=== PATIENT | male | born 1965 | race Caucasian/White ===

== ENCOUNTER 2021-06-10 02:07 | Emergency (ER) | payer OTHER, SELFPAY ==
--- NOTE | ~2021-06-10 | XR_ITS ---
EXAMINATION: XR FOOT, RIGHT CLINICAL INFORMATION: Fall and injury COMPARISON: None TECHNIQUE: AP, lateral, and oblique views of the right foot. FINDINGS: Osseous alignment throughout the foot is anatomic. No acute fracture is seen. Posterior and plantar calcaneal spurs are present. Mild degenerative changes noted in the tarsotarsal articulations. No significant focal soft tissue abnormality. XR/XR foot RT 2V IMPRESSION: No acute findings identified.
--- NOTE | 2021-06-10 02:14 | ED_ITS ---
HPI - Extremity Injury (Lower) General Chief Complaint: Extremity Injury, Lower Stated Complaint: right ankle injury Time Seen by Provider: 06/10/21 02:14 Source: patient Mode of arrival: EMS Limitations: no limitations History of Present Illness HPI Narrative: tripped and fell at work injuring his right foot 2 hours ago complaint: foot injury Onset (ago): hour(s) Type of Injury: unknown Place: work Severity: mild Relieving factors: nothing Exacerbating factors: weight bearing Context: fall Related Data Previous Rx's Medication Instructions Recorded naproxen 500 mg tablet (Naprosyn) 500 mg PO BID #20 tab 06/10/21 Allergies Allergy/AdvReac Type Severity Reaction Status Date / Time No Known Allergies Allergy Verified 06/10/21 02:18 Review of Systems Constitutional: Constitutional: Reports no additional constitutional complaints Eyes: Eyes: Reports no additional eye complaints ENT: Denies dizziness Cardiovascular: Cardiovascular: Reports no additional cardiovascular complaints Respiratory: Respiratory: Reports as per HPI Gastrointestinal: Gastrointestinal: Reports no additional gastrointestinal complaints Musculoskeletal: Musculoskeletal: Reports no additional musculoskeletal complaints Integumentary/Breasts: Skin/Breast: Denies rash Neurologic: Reports system reviewed and no additional complaints, except as documented, Denies dizziness and Denies Sensory deficit (Neuro) Psychiatric: Psychiatric: Denies anxiety [facility] Past Medical History Medical History (Updated 06/10/21 @ 03:38 by Anam Nagy MD) Hard of hearing Social History Social History Advance Directives: No Physical Exam Vital Signs: Vital Signs: Last Vital Signs Temp 98.0 F 06/10/21 02:22 Pulse 64 06/10/21 02:22 Resp 18 06/10/21 02:22 BP 140/75 H 06/10/21 02:22 Pulse Ox 96 06/10/21 02:22 Body Mass Index 36.3 Const: General: healthy appearing Nutritional Appearance: average body habitus Orientation/consciousness: oriented to person and patient oriented x3 Limitations: no limitations HENMT: Head: Yes normal to inspection Ears: external ears normal General nose exam: Normal external nose present Mouth: Normal oral and palatal mucosa present and oropharynx normal Throat: Yes posterior oropharynx normal Eyes: General: appearance normal, both eyes and all related structures Neck: Other: supple Neck: Yes normal visual inspection Chest: Chest palpation & inspection: normal inspection of the chest Resp: Auscultation: clear to auscultation bilaterally Cardio: Jugular venous distension: no JVD Rate: regular rate Rhythm: regular rhythm Heart sounds: S1 normal heart sound present and S2 normal heart sound present GI: Inspection: Yes normal to inspection Palpation (GI): Soft to palpation, nontender and No hepatosplenomegaly present Auscultation: normal bowel sounds : General: Yes no CVA tenderness Back/Spine/Pelvis: Back: no CVA tenderness Skin: General skin exam: no rashes or lesions noted Neuro: General: oriented to person and patient oriented x3 Cranial nerves: Yes CN's II-XII intact bilaterally Motor exam (neuro): 5/5 motor strength present throughout Sensory Exam: No Sensory deficit (Neuro) Extrem: Other: right foot plantar surface with pain to palpation Psych: Appearance: grossly normal Course Reevaluation(s) Reevaluation #1: no fracture or dislocation will place in hardshoe and crutches Time: 03:36 MDM - Extremity Injury (Lower) Imaging Data foot right: Radiologist's impression: IMPRESSION: No acute findings identified. Discharge Plan Discharge Clinical Impression: Contusion of foot Qualifiers: Encounter type: initial encounter Laterality: right Qualified Code(s): S90.31XA - Contusion of right foot, initial encounter Patient Disposition: Home, Self-Care Instructions: Foot Contusion (ED) Prescriptions: New naproxen [Naprosyn] 500 mg tablet 500 mg PO BID Qty: 20 RF: 0 Referrals: Physician,Unknown [Primary Care Provider] - 1 week
[2021-06-10 02:22] VITALS: BP 140/75; BP 146/80; PULSE 64; RESP 18; TEMP 36.7; O2SAT 96; BMI 36.3
== END 2021-06-10 03:58 | disposition home or self-care (01) ==
PROVIDERS: Emergency Provider Emergency Medicine
DX: S90.31XA Contusion of right foot, initial encounter (principal); M79.671 Pain in right foot; W01.0XXA Fall on same level from slipping, tripping and stumbling without subsequent striking against object, initial encounter; Y93.9 Activity, unspecified; Y92.9 Unspecified place or not applicable; Y99.0 Civilian activity done for income or pay
CPT/HCPCS: 73620; 99283

== ENCOUNTER → 2021-06-15 14:09 | Outpatient (BNVA) | payer OTHER, SELFPAY | PROVIDERS: Visit Provider Internal Medicine | DX: S93.401A Sprain of unspecified ligament of right ankle, initial encounter (principal); X58.XXXA Exposure to other specified factors, initial encounter | CPT/HCPCS: 99203 ==

== ENCOUNTER → 2021-06-25 09:59 | Outpatient (BNVA) | payer OTHER, SELFPAY | PROVIDERS: Visit Provider Physician Assistant Medical | DX: S93.401D Sprain of unspecified ligament of right ankle, subsequent encounter (principal); X58.XXXD Exposure to other specified factors, subsequent encounter | CPT/HCPCS: 99213 ==

== ENCOUNTER 2022-08-04 09:43 | Emergency (ER) | payer BC, SELFPAY ==
--- NOTE | ~2022-08-04 | XR_ITS ---
EXAMINATION: XR RIBS, RIGHT CLINICAL INFORMATION: Right chest wall pain. COMPARISON: None TECHNIQUE: PA chest and 4 views of the right ribs FINDINGS: Lungs are clear. No consolidation, pneumothorax, or pleural effusion. The cardiomediastinal silhouette and pulmonary vasculature are normal. Osseous structures are unremarkable. Ribs are intact. No fractures are identified. XR/XR ribs RT min 3V w CXR1V IMPRESSION: No acute parenchymal disease within the chest. No acute displaced right rib fracture or destructive bony lesion.
[2022-08-04 09:47] VITALS: BP 137/86; PULSE 72; RESP 18; TEMP 36.6; O2SAT 98; BMI 39.3
[2022-08-04 10:39] VITALS: BP 134/86; PULSE 62; RESP 14; TEMP 36.6; O2SAT 95
--- NOTE | 2022-08-04 11:08 | ED_ITS ---
HPI - General Adult General Chief complaint: General Medical Stated complaint: pain R side, pulled muscle? Time Seen by Provider: 08/04/22 10:51 Source: patient Mode of arrival: ambulatory Limitations: no limitations History of Present Illness HPI narrative: 56-year-old male came in for evaluation of right-sided chest wall pain. Patient has work related cervical injury patient was off duty for the last 6 weeks just return to work on light duty when he started to have right-sided chest wall pain think he has pulled a muscle. Pain feels like a pulled muscle mostly in the right chest wall, worsening with turning and twisting his torso no relieving factor, no fever, no chills, no trauma that he can recall, no heavy lifting. No urinary symptoms, no nausea, no vomiting. Related Data Previous Rx's Medication Instructions Recorded naproxen 500 mg tablet (Naprosyn) 500 mg PO BID #20 tabs 06/10/21 oxycodone 5 mg tablet 5 mg PO Q8H PRN pain #10 tabs 08/04/22 Allergies Allergy/AdvReac Type Severity Reaction Status Date / Time No Known Allergies Allergy Verified 06/10/21 02:18 Review of Systems Review of Systems: All other systems are reviewed and are negative Constitutional: Reports as per HPI and Reports no additional constitutional complaints Eyes: Reports as per HPI and Reports no additional eye complaints Reports system reviewed and no additional complaints, except as documented Cardiovascular: Reports as per HPI and Reports no additional cardiovascular complaints Respiratory: Reports as per HPI and Reports no additional respiratory complaints Gastrointestinal: Reports as per HPI and Reports no additional gastrointestinal complaints Genitourinary: Reports no additional female genitourinary complaints Musculoskeletal: Reports no additional musculoskeletal complaints Skin/Breast: Reports system reviewed and no additional complaints, except as docu Psychiatric: Reports no additional psychiatric complaints Endocrine: Reports no additional endocrine complaints Hematologic/Lymphatic: Reports no additional hematologic/lymphatic complaints Allergic/Immunologic: Reports no additional allergic/immunologic complaints Reports system reviewed and no additional complaints, except as documented and Reports Abnormal speech present [facility] Past Medical History Medical History Hard of hearing Social History Social History Advance Directives: No Advance Directives Information Provided: Yes Physical Exam ED Vital Signs: Vital Signs - 24 hr 08/04/22 09:47 08/04/22 10:39 08/04/22 14:36 Temperature 98 F 97.8 F 98.4 F Pulse Rate 72 62 53 Respiratory Rate 18 14 14 Blood Pressure 137/86 134/86 104/60 Pulse Oximetry 98 95 92 Oxygen Delivery Method Room Air Room Air Room Air BMI result Body Mass Index 39.3 Vital signs have been reviewed as appeared to be correct. Blood pressure normal. Heart rate normal. Respiration rate normal. Temperature normal. Oxygen saturation normal. Appearance: Alert. Oriented X3. No acute distress. Head: Normal external exam. Normocephalic. Atraumatic. No [place] signs noted. No raccoon eyes noted Eyes: PERRLA. EOMI. Conjunctiva and sclera normal. Eyelids normal. ENT: TM's Normal. Pharynx normal. Uvula midline. Moist mucous membranes. No trismus noted. No drooling noted. No muffled voice noted. Neck: Normal inspection. Neck supple. FROM. No adenopathy. Thyroid Normal. No meningeal signs. No neck mass noted. CVS: Normal heart rate and rhythm. Heart sound normal. No murmurs noted. Pulses normal throughout. Respiratory: No respiratory distress. Painless inspiration. Breath sounds normal. No wheezes/rales/rhonchi noted. Chest nontender. No accessory muscle usage noted or decreased air movement noted. Abdomen: Soft and nontender. Bowel sounds normal in all 4 quadrants. No distention noted. No organomegaly noted. No visible injury noted. Back: No CVA tenderness. Full range of motion noted. Skin: Skin warm and dry. Normal skin color. Normal skin turgor. No rashes/lesions/lacerations noted. Extremities: No lower extremity edema. Extremities exhibit normal range of motion. Extremities nontender. Neuro: Oriented X 3. Cranial nerve exam: II-XII are grossly intact No motor deficit. No sensory deficit. Reflexes normal. Course Course Course Narrative: 56-year-old male came in for evaluation of right flank pain/right chest wall pain for the last 2 days physical exam and findings are consistent with muscular pain and pulled muscle. Patient feels better after was given Dilaudid and Toradol. Will discharge home on few pills of oxycodone, work note for 2 days off. Slight elevation of lipase patient has no epigastric pain, no nausea, no vomiting patient was made aware of the abnormal value of lipase. Medications Administered Discontinued Medications Generic Name Dose Route Start Last Admin Trade Name Mark PRN Reason Stop Dose Admin Hydromorphone HCl 2 mg 08/04/22 11:03 08/04/22 11:21 Hydromorphone Hcl 2 Mg/Ml Vial IM 08/04/22 11:04 2 mg ONCE ONE Administration Protocol Ketorolac Tromethamine 15 mg 08/04/22 11:03 08/04/22 11:21 Ketorolac Tromethamine 15 Mg/Ml Vial IM 08/04/22 11:04 15 mg ONCE ONE Administration Medical Decision Making Lab Data Lab results reviewed: Yes I reviewed the patient's lab results. Result diagrams: 08/04/22 11:47 08/04/22 11:47 Labs: Lab Results 08/04/22 08/04/22 08/04/22 Range/Units 11:19 11:47 11:47 WBC 8.6 (4.8-10.8) X10*3/uL RBC 4.43 L (4.60-5.80) X10*6/uL Hgb 13.4 L (14.0-18.0) g/dl Hct 40.4 L (42.0-52.0) % MCV 91.2 (80.0-98.0) fL MCH 30.2 (27.0-33.0) pg MCHC 33.2 (31.0-36.0) g/dl RDW 13.1 (11.0-16.0) % Plt Count 198 (160-400) X10*3/uL MPV 9.7 (9.4-12.4) fL Immature Gran % (Auto) 0.5 H (0.0-0.4) % Neut % (Auto) 63.9 (45-73) % Lymph % (Auto) 22.4 (20-40) % [place] % (Auto) 9.8 (2-11) % Eos % (Auto) 3.0 (0-4) % Baso % (Auto) 0.4 (0-2) % Lymph # (Auto) 1.9 (1.2-4.9) X10*3/uL [place] # (Auto) 0.8 (0.1-1.2) X10*3/uL Eos # (Auto) 0.3 (0.0-0.4) X10*3/uL Baso # (Auto) 0.0 (0.0-0.2) X10*3/uL Abs Immat Gran (auto) 0.04 H (0.00-0.03) X10*3/uL Absolute Neuts (auto) 5.5 (2.0-8.3) x10*3/uL Absolute Nucleated RBC 0.000 (0.0-0.012) X10*3/uL Nucleated RBC % (auto) 0.0 (0.0-0.2) /100WBC Sodium 139 (135-145) mmol/L Potassium 3.7 (3.3-5.1) mmol/L Chloride 101 (96-108) mmol/L Carbon Dioxide 27 (22-29) mmol/L Anion Gap 15 (12-20) BUN 13 (9-16) mg/dL Creatinine 0.78 (0.5-1.4) mg/dL Estim Creat Clear Calc 151.8 Estimated GFR > 60 Random Glucose 97 (60-115) mg/dL Calcium 9.1 (8.4-10.2) mg/dL Total Bilirubin 0.7 (0.0-1.0) mg/dL Direct Bilirubin 0.3 (0.0-0.5) mg/dL AST 31 (5-37) U/L ALT 45 H (0-40) U/L Alkaline Phosphatase 66 (39-117) U/L Total Protein 6.6 (6.5-8.0) g/dL Albumin 4.2 (3.5-5.0) g/dL Lipase 163 H (8-78) U/L Urine Color Yellow Urine Appearance Clear Urine pH 5.5 (5.0-9.0) Ur Specific [place] 1.015 (1.005-1.025) Urine Protein Negative (Neg-Trace) mg/dL Urine Glucose (UA) Negative (Negative) mg/dL Urine Ketones Negative (Negative) mg/dL Urine Blood Negative (Negative) Urine Nitrite Negative (Negative) Ur Leukocyte Esterase Negative (Negative) Urine RBC 0-2 (0-2) /HPF Urine WBC 0-5 (0-5) /HPF Ur Squamous Epith Cells 0-2 (0-2) /HPF Urine Bacteria None Seen (None Seen) Hyaline Casts 0-2 (0-2) /LPF Imaging Data Chest x-ray: Attestation: I personally reviewed and interpreted this imaging study as follows: Radiologist's impression: No acute parenchymal disease within the chest. ? No acute displaced right rib fracture or destructive bony lesion. ? Discharge Plan Discharge Clinical Impression: Acute myofascial pain Patient Disposition: Home, Self-Care Instructions: Musculoskeletal Pain (ED) Prescriptions: New oxycodone 5 mg tablet 5 mg PO Q8H PRN (Reason: pain) Qty: 10 0RF Rx Instructions: Partial Fill upon patient request. No Action naproxen [Naprosyn] 500 mg tablet 500 mg PO BID Qty: 20 0RF Referrals: Larisa Solis FNP [Primary Care Provider] - Stand Alone Forms: Work/School Release
[2022-08-04] MEDS: Ketorolac Tromethamine 15 MG/ML VIAL IM (11:21)
[2022-08-04] MEDS: HYDROmorphone HCl 2 MG/ML VIAL IM (11:21)
[2022-08-04 11:32] LABS: Appearance Urine Clear; Color Urine Yellow; Glucose Urine UA Negative (Negative); Leukocyte Esterase Urine Negative (Negative); Nitrite Urine Negative (Negative); PH 5.5 (5.0-9.0); Specific Gravity - Urine 1.015 (1.005-1.025); Urine Blood Negative (Negative); Urine Ketones Negative (Negative); Urine Protein Negative (Neg-Trace)
[2022-08-04 11:35] LABS: Bacteria Urine None Seen (None Seen); Hyaline Casts Urine 0-2 /LPF (0-2); RBC Urine 0-2 /HPF (0-2); Squamous Epithelial Cell Urine 0-2 /HPF (0-2); WBC Urine 0-5 /HPF (0-5)
--- NOTE | 2022-08-04 11:37 | PC.NURSE ---
at bedside, medicated per the MAR.
[2022-08-04 11:52] LABS: Basophils Percent Auto 0.4 % (0-2); Eosinophils Absolute Auto 0.3 X10*3/uL (0.0-0.4); Hematocrit 40.4 % (42.0-52.0); Hemoglobin 13.4 g/dl (14.0-18.0); Imm Gran Abs Auto 0.04 X10*3/uL (0.00-0.03); Imm Gran Pct Auto 0.5 % (0.0-0.4); Lymphocytes Absolute Auto 1.9 X10*3/uL (1.2-4.9); Lymphocytes Percent Auto 22.4 % (20-40); MANUAL DIFF FLAG NO; Mean Corpuscular HGB Conc 33.2 g/dl (31.0-36.0); Mean Corpuscular Hemoglobin 30.2 pg (27.0-33.0); Mean Corpuscular Volume 91.2 fL (80.0-98.0); Mean Platelet Volume 9.7 fL (9.4-12.4); Monocytes Absolute Auto 0.8 X10*3/uL (0.1-1.2); Monocytes Percent Auto 9.8 % (2-11); Neutrophils Absolute Auto 5.5 x10*3/uL (2.0-8.3); Neutrophils Percent Auto 63.9 % (45-73); Platelet Count 198 X10*3/uL (160-400); Red Blood Count 4.43 X10*6/uL (4.60-5.80); Red Cell Distribution Width 13.1 % (11.0-16.0); White Blood Count 8.6 X10*3/uL (4.8-10.8)
[2022-08-04 12:14] LABS: Alanine Aminotransferase 45 U/L (0-40); Albumin Level 4.2 g/dL (3.5-5.0); Alkaline Phosphatase 66 U/L (39-117); Anion Gap 15 (12-20); Aspartate Amino Transferase 31 U/L (5-37); Bilirubin Direct 0.3 mg/dL (0.0-0.5); Bilirubin Total 0.7 mg/dL (0.0-1.0); Blood Urea Nitrogen 13 mg/dL (9-16); Calcium 9.1 mg/dL (8.4-10.2); Carbon Dioxide 27 mmol/L (22-29); Chloride 101 mmol/L (96-108); Creatinine Clr Calc Pharmacy 151.8; Estimated Glomerular Filt Rate > 60; Glucose Random 97 mg/dL (60-115); Lipase 163 U/L (8-78); Potassium 3.7 mmol/L (3.3-5.1); Sodium 139 mmol/L (135-145); Total Protein 6.6 g/dL (6.5-8.0)
[2022-08-04 14:36] VITALS: BP 104/60; PULSE 53; RESP 14; TEMP 36.9; O2SAT 92
== END 2022-08-04 16:02 | disposition home or self-care (01) ==
PROVIDERS: Emergency Provider Emergency Medicine; PCP Nurse Practitioner Family
DX: R07.89 Other chest pain (principal); R51.9 Headache, unspecified; R07.81 Pleurodynia; Z79.899 Other long term (current) drug therapy
CPT/HCPCS: 36415; 71101; 80048; 80076; 81001; 83690; 85025; 96372; 99284; J1170; J1885

== ENCOUNTER 2024-04-18 11:24 | Emergency (ER) | payer BC, SELFPAY ==
[2024-04-18 11:45] VITALS: BP 128/89; PULSE 84; RESP 20; TEMP 37.2; O2SAT 96; BMI 32.1
--- NOTE | 2024-04-18 11:47 | ED.GENADULT ---
HPI - General Adult General Chief complaint: General Medical Stated complaint: Prolapsed rectum Time Seen by Provider: 04/18/24 11:46 Source: patient Mode of arrival: ambulatory Limitations: no limitations History of Present Illness HPI narrative: Patient is a 58-year-old male who presents emergency department for evaluation. He reports yesterday he was straining to have multiple formed bowel movements. Yesterday evening when sitting down he noticed some rectal discomfort. This morning the pain became worse, he attempted to take a shower, he felt a firm lump to his rectum. He admits to a history of something similar occurring in the past and he was able to push it back in but was not able to do so today. He states it is painful. He denies any abdominal pain, nausea, vomiting, hematochezia, melena, diarrhea. Has chronic constipation for which he takes OTC medications. Related Data Previous Rx's ?Medication ?Instructions ?Recorded naproxen 500 mg tablet (Naprosyn) 500 mg PO BID #20 tabs 06/10/21 oxycodone 5 mg tablet 5 mg PO Q8H PRN pain #10 tabs 08/04/22 bacitracin 500 unit/gram topical 1 appl topical BID #14.2 grams 04/18/24 ointment docusate sodium 100 mg capsule 100 mg PO BID #20 caps 04/18/24 (Colace) oxycodone 5 mg tablet 5 mg PO Q6H PRN pain #10 tabs 04/18/24 Allergies Allergy/AdvReac Type Severity Reaction Status Date / Time No Known Allergies Allergy Verified 04/18/24 11:48 Review of Systems Review of Systems: Yes all other systems are reviewed and are negative [facility] Past Medical History Attestation statement: The following information was validated with the patient. Source: old records reviewed Medical History Hard of hearing Social History Social History Smoked in Last 30 Days: Yes Use of substances other than those prescribed or required for medical reasons: No Advance Directives: No Advance Directives Information Provided: No Do you have a plan to hurt others: No Plan Physical Exam ED Vital Signs: Vital Signs - 24 hr 04/18/24 11:45 04/18/24 12:45 04/18/24 13:47 Temperature 98.9 F 98.1 F Pulse Rate 84 85 60 Respiratory Rate 20 17 Blood Pressure 128/89 144/87 H 126/72 Pulse Oximetry 96 99 95 Oxygen Delivery Method Room Air Room Air Room Air 04/18/24 13:52 Temperature 98.1 F Pulse Rate 60 Respiratory Rate 17 Blood Pressure 126/72 Pulse Oximetry 95 Oxygen Delivery Method Room Air BMI result Body Mass Index 32.1 Appearance: Alert.?Oriented to person, place and time. No acute distress.?Normal affect.?? CVS: Heart sounds normal. Normal heart rate and rhythm.? Pulses normal.?? Respiratory: No respiratory distress.? Lung sounds clear to auscultation bilaterally?? Abdomen: Soft and non-tender. Normoactive bowel sounds. Rectal: Performed with infant teacher, ED RN Elke?? - bluish discolored firm nodule in the perirectal region approximately 1 o'clock - 3 o'clock concerning for thrombosed hemorrhoid Skin: Skin warm and dry.? Normal skin color.? Extremities: No lower extremity edema. Neuro: Moves all extremities spontaneously. Sensation intact bilaterally. Ambulates with normal steady gait. Course Course Course Narrative: RME: Done by SARAH Blair. 58 yold male presents to the ED for rectal prolapse after straining this morning. patient states this occurred 20 years ago. patient states no rectal bleeding, abdominal pain, nausea, or vomitting, Medications Administered Discontinued Medications Generic Name Dose Route Start Last Admin Trade Name Freq PRN Reason Stop Dose Admin Bacitracin 1 appl 04/18/24 13:24 04/18/24 13:49 Bacitracin Oint 0.9 Gm Packet TOPICAL 04/18/24 13:25 1 appl ONCE ONE Administration Protocol Lidocaine HCl 5 ml 04/18/24 12:06 04/18/24 13:09 Lidocaine Hcl 1 % Mpf 5 Ml Vial SUBCUT 04/18/24 12:07 5 ml ONCE ONE Administration Lidocaine HCl 1 appl 04/18/24 12:06 04/18/24 12:17 Lidocaine 4 % Cream Kit TOPICAL 04/18/24 12:07 1 appl ONCE ONE Administration Protocol Lorazepam 1 mg 04/18/24 12:09 04/18/24 12:17 Lorazepam 1 Mg Tablet PO 04/18/24 12:10 1 mg ONCE ONE Administration Medical Decision Making Medical Decision Making MDM Narrative: Patient is a 58-year-old male who presents emergency department for evaluation of rectal pain and a palpable lump. On examination is found to have a thrombosed hemorrhoid, appears less consistent with perirectal abscesses there is no fluctuance, and it is firm upon palpation with blue discoloration. Discussed with patient and his plan for excision, LM X applied, patient will be premedicated with lorazepam. Procedure: Performed enucleation of the thrombosed hemorrhoid, he was placed in lateral recumbent, topical LMX was applied to the area, then removed and cleansed extensively with saline and Betadine, subcutaneous infiltration with 1% lidocaine 3 mL, once confirmed anesthetic, made an elliptical incision above the hemorrhoid to expose thrombosis, assurance to avoid the no sphincter muscle, with manual question was able to XR [place] looked around the area, pressure was applied to abnormal bleeding topical bacitracin was applied and the pain dry dressing was placed. Advised acetaminophen/ibuprofen for pain management, for pain unrelieved was advised to drink oxycodone, instructed on precautions, APPLICATION INFRASTRU[employer]URE ENGINEER was checked. Advised high-fiber diet, stool softener with Colace, adequate hydration, and outpatient follow-up with General surgery, he will contact their office tomorrow. All questions were answered cessation . Stable for discharge. Differential Diagnosis Differential Diagnoses: The differential diagnosis associated with the presentation includes (See narrative above) Independent Historian Clinical information obtained from an independent historian. History obtained from or confirmed by: Spouse External Record Review External record reviewed: Outpatient record and Other (APPLICATION INFRASTRUCTURE ENGINEER) Prescription Management I considered prescription management with: Pain Medication Discharge Plan Discharge Clinical Impression: External hemorrhoid, thrombosed Patient Disposition: Home, Self-Care Instructions: Hemorrhoids (ED) Additional Instructions: Keep the dressing in place over the next 12 hours. Tomorrow or UA cleanse the area with warm water and mild non scented soap. Apply topical bacitracin ointment. You may need to apply a dressing as we did today if you have any drainage or small amount of bleeding. You can take ibuprofen 200 mg, 3 tablets (600mg) every 6-8 hours as needed for pain, in addition to Tylenol 500 mg, 2 tablets (1,000mg) every 4-6 hours as needed for pain, but not to exceed 3 doses daily (3,000mg).? For pain unrelieved by ibuprofen/Tylenol, a prescription for oxycodone was sent to your pharmacy. This is a narcotic medication. They can be addicting. It may make you drowsy. You should not drive, drink alcohol, or work while taking this medication. Tomorrow morning you should contact the general surgeon's office to arrange for an outpatient follow-up. Their number has been provided with these discharge instructions, Dr. Mcclain. You may return back to emergency department any new or worsening symptoms or concerns. Prescriptions: New bacitracin 500 unit/gram ointment 1 appl topical BID Qty: 14.2 0RF oxycodone 5 mg tablet 5 mg PO Q6H PRN (Reason: pain) Qty: 10 0RF Rx Instructions: Partial Fill upon patient request. docusate sodium [Colace] 100 mg capsule 100 mg PO BID Qty: 20 0RF No Action naproxen [Naprosyn] 500 mg tablet 500 mg PO BID Qty: 20 0RF oxycodone 5 mg tablet 5 mg PO Q8H PRN (Reason: pain) Qty: 10 0RF Rx Instructions: Partial Fill upon patient request. Referrals: Missael Mcclain MD [Physician] - Larisa Solis FNP [Primary Care Provider] - Stand Alone Forms: Work/School Release Interventions: ED Discharge Assessment Last Done: 04/18/24 13:52 Discharge Date/Time: 04/18/24 13:58 Print Language: Qatari
[2024-04-18] MEDS: Lidocaine 4 % Cream KIT 1 APPL TOPICAL (12:17)
[2024-04-18] MEDS: LORazepam 1 MG TABLET PO (12:17)
--- NOTE | 2024-04-18 12:20 | PC.NURSE ---
LMX gel applied to rectum
[2024-04-18 12:45] VITALS: BP 144/87; PULSE 85; O2SAT 99
[2024-04-18] MEDS: Lidocaine HCl 1 % MPF 5 ML VIAL SUBCUT (13:09)
[2024-04-18 13:47] VITALS: BP 126/72; PULSE 60; RESP 17; TEMP 36.7; O2SAT 95
[2024-04-18] MEDS: Bacitracin Oint 0.9 GM PACKET 1 APPL TOPICAL (13:49)
[2024-04-18 13:52] VITALS: BP 126/72; PULSE 60; RESP 17; TEMP 36.7; O2SAT 95
== END 2024-04-18 13:58 | disposition home or self-care (01) ==
PROVIDERS: Emergency Provider Emergency Medicine; PCP Nurse Practitioner Family
DX: K64.5 Perianal venous thrombosis (principal)
CPT/HCPCS: 46320; 99284

== ENCOUNTER 2024-04-22 14:17 | Outpatient (AMB) | payer BC, SELFPAY ==
[2024-04-22 14:19] VITALS: BMI 32.1
--- NOTE | 2024-04-22 14:19 | MHC.OFFVIS ---
Vital Signs 04/22/24 14:19 Height 6 ft 2 in Weight 249 lb 15.997 oz BMI 32.1 Intake Visit Reasons: Thrombosed hemorrhoid Intake Note: This patient presents for [facility] [place]up for thrombosed hemorrhoid. Patient c/o; reports mild pain, reports discomfort when sitting, reports is taking stool softeners, reports has not had rectal bleeding for the last 4-5 days. Dried Fruit Washer Required: No Accompanied by: Spouse Allergies No Known Allergies Allergy (Verified 04/22/24 14:32) Medication List - Last Reconciled 04/22/24 by Missael Mcclain MD bacitracin 1 appl topical BID docusate sodium (Colace) 100 mg PO BID naproxen (Naprosyn) 500 mg PO BID oxycodone 5 mg PO Q8H PRN oxycodone 5 mg PO Q6H PRN HPI HPI Thrombosed hemorrhoid: Details: 58-year-old male referred for a thrombosed hemorrhoid. He says that 6 days ago, he had hard stools and then this was followed by multiple bowel movements. He then felt a lump outside his anus which was very tender. He went to the ER the following day. He was told he had a thrombosed hemorrhoid. An I&D was done. He says he still has some discomfort but this is much better. He says he was miserable last Friday He has any significant bleeding. [facility] Medical History Hard of hearing Surgical History No pertinent past surgical history Family History Other Family history unknown Social History Alcohol intake: never Patient Tobacco Use Status: Never used Tobacco Review of Systems Const Denies chills and Denies fever(s) Card Denies chest pain, Denies dyspnea and Denies dyspnea on exertion Resp Denies cough, Denies dyspnea and Denies dyspnea on exertion GI Denies hematochezia, Denies change in bowel habits and Reports constipation Denies hematuria and Denies difficulty urinating Musc Denies back pain and Denies limited range of motion Neuro Denies focal weakness and Denies convulsions Psych Denies depression and Denies mood swings Physical Exam Vital Signs: BMI result Body Mass Index 32.1 Const Other: Sitting down on the chair General: comfortable and no acute distress Orientation/consciousness: patient oriented x3 Neck Neck: Yes no lymphadenopathy Resp Auscultation: clear to auscultation bilaterally Cardio Rhythm: regular rhythm GI Other: Rectal exam shows a large external thrombosed hemorrhoid, about 1 cm in diameter on the right side Palpation (GI): Soft to palpation, nontender and no guarding Neuro General: patient oriented x3 Assessment & Plan Assessment & Plan (1) External hemorrhoid, thrombosed: Code(s): K64.5 - Perianal venous thrombosis Category: Medical Plan: He had an I and D done in the ER 6 days ago for this thrombosed external hemorrhoid. He does feel much better although he still has discomfort. I told him that he should do hot Sitz baths or warm soaks 2 to 3 times a day to help with soft resorption of the thrombus. He has pain level has improved significantly. I will see him again in the office in about 3 weeks or so. I told him that completely resolution of this thrombosed hemorrhoid may take several weeks His was with him during the visit. I advised him to avoid straining and constipation as well. I instructed him to start taking Metamucil supplements. Coding Level of Care Code New Pt Level 3 (06279) Diagnoses External hemorrhoid, thrombosed K64.5
== END 2024-04-22 14:47 | disposition home or self-care (01) ==
PROVIDERS: PCP Nurse Practitioner Family; Visit Provider Surgery
DX: K64.5 Perianal venous thrombosis (principal)
CPT/HCPCS: 99203

== ENCOUNTER → 2024-04-22 14:17 | Outpatient (BNVA) | payer BC, SELFPAY | PROVIDERS: PCP Nurse Practitioner Family; Visit Provider Surgery ==

== ENCOUNTER 2024-08-03 18:20 | Inpatient (IN) | payer BC, SELFPAY ==
--- NOTE | ~2024-08-03 | XR_ITS ---
EXAMINATION: XR ABDOMEN KUB CLINICAL INDICATION: Status post transverse colon resection, ?ileus. COMPARISON: CT abdomen of August 04, 2024. TECHNIQUE: 8 views of the abdomen. FINDINGS: There is gaseous distention of large and small bowel loops. The stomach is distended. There appears to be some atelectatic change left lung base. Degenerative disc disease present L5-S1 with facet arthropathy. Calcific tendinitis/bursitis right greater trochanter. XR/XR KUB IMPRESSION: Diffusely distended loops of large and small bowel consistent with ileus. Electronically signed by: Honorio Fry MD 08/09/2024 02:34 PM [facility]
--- NOTE | ~2024-08-03 | CT_ITS ---
EXAMINATION: CT ABDOMEN AND PELVIS WITH CONTRAST CLINICAL INFORMATION: Left upper quadrant pain/epigastric. COMPARISON: None available. TECHNIQUE: Multidetector volumetric images were obtained from the superior aspect of the liver through the pubic symphysis following administration 100 mL of Omnipaque 350 intravenous contrast without reported immediate complications. Sagittal and coronal reformatted images were obtained on the technologist's workstation. Oral contrast: No This CT examination was performed using dose optimization techniques as appropriate, variously including the following: *Automated exposure control *Adjustment of mA and/or kV according to patient size (this includes techniques or standardized protocols for targeted exams where dose is matched to indication/reason for exam; i.e. extremities or head) *Use of iterative reconstruction technique DLP: 1043 mGy-cm FINDINGS: LUNG BASES: Multifocal patchy pulmonary groundglass in the lung bases. No gross pulmonary nodules in the included lungs. Calcified plaques in the coronary arteries and mitral valve. LIVER, GALLBLADDER, AND BILIARY TREE: Liver measures 20 cm with a heterogeneous decreased enhancement pattern. No focal mass. Main portal vein, hepatic veins and intrahepatic portion of the IVC are patent. No pericholecystic fluid collection or gallbladder wall thickening. Common bile duct measures 4 mm. PANCREAS: No focal pancreatic mass. No peripancreatic fluid collection. The main pancreatic duct measures 7 mm at the inferior aspect of the head of the pancreas.. SPLEEN: Measures 10 cm. No focal mass. ADRENAL GLANDS: No nodular lesions. KIDNEYS AND URETERS: No renal mass. No hydronephrosis. Normal enhancement pattern of the renal parenchyma. BLADDER: Fluid-filled. GASTROINTESTINAL TRACT: There is a 6 cm segmental concentric wall thickening/edema pattern resulting in narrowed lumen and pericolonic edema pattern centered in the distal transverse colon. No associated diverticulum or peripheral enhancing fluid collection. No pneumoperitoneum. No ascites. No intestinal obstruction pattern. Appendix is normal. No pneumatosis intestinalis. ABDOMINAL WALL: Small fat-containing umbilical hernia and diastases of the abdominal rectus muscles. LYMPH NODES: Mild prominent mesenteric lymph nodes. VASCULAR: No aneurysm or dissection, abdominal aorta. Calcified plaques in the distal abdominal aorta wall and iliac arteries. PELVIC VISCERA: Prostate gland and seminal vesicles are not enlarged. OSSEOUS STRUCTURES: Degenerative changes in the coxofemoral joints and sacroiliac joints. Multilevel thoracolumbar spondylosis more conspicuous at L5-S1 resulting in grade 1 retrolisthesis. No acute fracture. No gross lytic or blastic lesions. CT/CT abdomen pelvis w IV con IMPRESSION: 6 cm segmental wall thickening/edema pattern and pericolonic edema pattern, distal transverse colon concerning for malignancy. Focal ischemia versus inflammatory processes could be included in the differential diagnosis. Discussed with the requesting physician in the emergency department at 9:23 AM. Fleischner guidelines were followed. Electronically signed by: Alexis Alan MD 08/04/2024 09:43 AM [facility]
--- NOTE | ~2024-08-03 | XR_ITS ---
EXAMINATION: XR CHEST CLINICAL INFORMATION: leucocytosis COMPARISON: X-ray dated August 04, 2022 TECHNIQUE: Frontal view of the chest was obtained. FINDINGS: Linear opacities both lungs. No pleural effusion. No pneumothorax. Gas filled prominent stomach resulting in elevated left hemidiaphragm. Heart silhouette appears normal in size. Multilevel thoracic spondylosis. XR/XR chest 1V IMPRESSION: Multifocal pneumonia versus mild interstitial lung edema Electronically signed by: Alexis Alan MD 08/10/2024 02:38 PM EST
--- NOTE | ~2024-08-03 | CT_ITS ---
EXAMINATION: CT ABDOMEN AND PELVIS WITH CONTRAST CLINICAL INFORMATION: Status post colectomy. Increasing white count. Abdominal distention. COMPARISON: August 04, 2024. TECHNIQUE: Multidetector volumetric images were obtained from the superior aspect of the liver through the pubic symphysis following administration 85 mL of Omnipaque 350 intravenous contrast. Sagittal and coronal reformatted images were obtained on the technologist's workstation. Oral contrast: No This CT examination was performed using dose optimization techniques as appropriate, variously including the following: *Automated exposure control *Adjustment of mA and/or kV according to patient size (this includes techniques or standardized protocols for targeted exams where dose is matched to indication/reason for exam; i.e. extremities or head) *Use of iterative reconstruction technique DLP: 979 mGy-cm FINDINGS: LUNG BASES: Bibasilar dependent airspace disease suggesting atelectasis and/or infiltrates, significantly worse compared with most recent prior study from August 04, 2024. No pleural effusion. Heart normal in size. On arterial calcification. Suspect coronary arterial stent placement. LIVER, GALLBLADDER, AND BILIARY TREE: The liver appears unremarkable in size, shape, and attenuation. No focal hepatic lesion or biliary ductal dilatation is appreciated. Unremarkable appearance of the gallbladder. PANCREAS: Unremarkable SPLEEN: Unremarkable ADRENAL GLANDS: Unremarkable KIDNEYS AND URETERS: The kidneys appear unremarkable in size, shape, and attenuation. No hydronephrosis, hydroureter, or calculi seen. BLADDER: Air within the nondependent portion of the urinary bladder. Otherwise unremarkable. GASTROINTESTINAL TRACT: Transverse colonic anastomotic ambrosio. Mild induration of fat in the region of the anastomotic ambrosio. No abscess identified. Multiple loops of significantly dilated small bowel measuring up to approximately 6 cm in diameter and containing air-fluid levels. Relative decompression of distal small bowel. The exact transition point is not identified. Air within the nondependent portion of the colon. Scattered sigmoid diverticula without evidence of diverticulitis. PERITONEAL CAVITY: No free intraperitoneal air identified. Small amount of ascites. ABDOMINAL WALL: Vertical midline anterior abdominal wall incisional scar. No significant hernia is appreciated. LYMPH NODES: No evidence of adenopathy by size criteria. VASCULAR: Unremarkable PELVIC VISCERA: Unremarkable OSSEOUS STRUCTURES: Unremarkable CT/CT abdomen pelvis w IV con IMPRESSION: Findings consistent with small bowel obstruction, possibly early or partial. Transverse colonic anastomotic ambrosio. Mild induration of fat in the region of the anastomotic ambrosio. No abscess or free air identified identified. Small amount of ascites. Small amount of air within the nondependent portion of the urinary bladder, possibly iatrogenic. Recommend clinical correlation. Electronically signed by: Julius Wilson MD 08/11/2024 07:48 AM [facility]
[2024-08-03 19:33] VITALS: BP 143/70; PULSE 70; RESP 16; O2SAT 95; BMI 36.3
[2024-08-03 21:39] LABS: MANUAL DIFF FLAG NO
[2024-08-03 21:40] LABS: Basophils Absolute Auto 0.1 X10*3/uL (0.0-0.2); Basophils Percent Auto 0.4 % (0-2); Eosinophils Absolute Auto 0.3 X10*3/uL (0.0-0.4); Eosinophils Percent Auto 2.4 % (0-4); Hematocrit 43.6 % (42.0-52.0); Hemoglobin 14.5 g/dl (14.0-18.0); Imm Gran Abs Auto 0.08 X10*3/uL (0.00-0.03); Imm Gran Pct Auto 0.7 % (0.0-0.4); Lymphocytes Absolute Auto 1.2 X10*3/uL (1.2-4.9); Mean Corpuscular HGB Conc 33.3 g/dl (31.0-36.0); Mean Corpuscular Hemoglobin 29.9 pg (27.0-33.0); Mean Corpuscular Volume 89.9 fL (80.0-98.0); Mean Platelet Volume 9.4 fL (9.4-12.4); Monocytes Absolute Auto 0.7 X10*3/uL (0.1-1.2); Monocytes Percent Auto 5.5 % (2-11); Neutrophils Absolute Auto 9.7 x10*3/uL (2.0-8.3); Platelet Count 285 X10*3/uL (160-400); Red Blood Count 4.85 X10*6/uL (4.60-5.80); Red Cell Distribution Width 13.2 % (11.0-16.0)
[2024-08-03 21:55] LABS: Alanine Aminotransferase 21 U/L (0-40); Albumin Level 4.4 g/dL (3.5-5.0); Alkaline Phosphatase 81 U/L (39-117); Anion Gap 11 (12-20); Aspartate Amino Transferase 20 U/L (5-37); Bilirubin Direct 0.1 mg/dL (0.0-0.5); Bilirubin Total 0.4 mg/dL (0.0-1.0); Blood Urea Nitrogen 9 mg/dL (9-16); Calcium 9.4 mg/dL (8.4-10.2); Carbon Dioxide 23 mmol/L (22-29); Chloride 108 mmol/L (96-108); Creatinine Clr Calc Pharmacy 165.4; Estimated Glomerular Filt Rate > 60; Glucose Random 117 mg/dL (60-115); Lipase 12 U/L (8-78); Potassium 3.8 mmol/L (3.3-5.1); Sodium 138 mmol/L (135-145); Total Protein 7.5 g/dL (6.5-8.0)
[2024-08-04] VITALS (7 sets, daily range): BP systolic 118–155; BP diastolic 62–88; PULSE 54–65; RESP 15–20; TEMP 36.7–37.1; O2SAT 93–96
[2024-08-04] MEDS: Acetaminophen 325 MG TABLET 975 MG PO (00:15)
--- NOTE | 2024-08-04 00:19 | PC.NURSE ---
Pt reports 10/10 abdominal pain. Tylenol given. Pt was unable to lay flat for x-ray, refused at this time until pain in under control
[2024-08-04] MEDS: Calcium Carbonate 750 MG TAB.CHEW PO (00:32)
--- NOTE | 2024-08-04 01:38 | MHC.EDTECH ---
at 0126 this tech changed over the pt into a hospital gown and placed on paint brush maker, vital signs taken, BP was increased to 155/78 pt's stated that it the diastolic pressure was 154 earlier when taken in triage. Pt stated that her currently is in pain. Call light given for safety, at bedside.
--- NOTE | 2024-08-04 06:15 | ED.ABDPAIN ---
HPI - Abdominal Pain General Chief Complaint: Abdominal Pain Stated Complaint: Abdominal pain Time Seen by Provider: 08/04/24 05:59 Source: patient and other (Girlfriend, Nela) Mode of arrival: ambulatory Limitations: no limitations History of Present Illness ED Provider: Dr. Dale Snyder HPI narrative: 58-year-old male with a history of GERD who presents emergency department for evaluation of abdominal pain. The patient states the pain started suddenly yesterday around 15:00 hours. He states that since that time the pain has been a constant, sharp pain which waxes and wanes in intensity. The pain is 9/10 at its worst. This is 1st episode of this type of pain. The patient denied fever or chills. He denied nausea, vomiting or diarrhea. States he did have some slight dysuria but no urinary frequency. Related Data Previous Rx's ?Medication ?Instructions ?Recorded naproxen 500 mg tablet (Naprosyn) 500 mg PO BID #20 tabs 06/10/21 oxycodone 5 mg tablet 5 mg PO Q8H PRN pain #10 tabs 08/04/22 bacitracin 500 unit/gram topical 1 appl topical BID #14.2 grams 04/18/24 ointment docusate sodium 100 mg capsule 100 mg PO BID #20 caps 04/18/24 (Colace) oxycodone 5 mg tablet 5 mg PO Q6H PRN pain #10 tabs 04/18/24 Allergies Allergy/AdvReac Type Severity Reaction Status Date / Time No Known Allergies Allergy Verified 08/03/24 19:37 Review of Systems Review of Systems Yes all other systems are reviewed and are negative [facility] Past Medical History [facility] Narrative: Social history: He does smoke cigarettes. He denies alcohol use. He denies drug use. Medical History Hard of hearing Surgical History No pertinent past surgical history Family History Family History Other Family history unknown Social History Social History Alcohol intake: never Patient Tobacco Use Status: Never used Tobacco Smoked in Last 30 Days: Yes Use of substances other than those prescribed or required for medical reasons: No Advance Directives: No Advance Directives Information Provided: No Physical Exam ED Vital Signs: Vital Signs - 24 hr 08/03/24 19:33 08/04/24 00:17 08/04/24 01:26 Temperature 98.5 F 98.6 F Pulse Rate 70 65 63 Respiratory Rate 16 16 17 Blood Pressure 143/70 H 152/88 H 155/78 H Pulse Oximetry 95 96 96 Oxygen Delivery Method Room Air Room Air Room Air 08/04/24 04:40 08/04/24 06:18 Temperature 98.8 F 98.5 F Pulse Rate 65 62 Respiratory Rate 15 16 Blood Pressure 131/62 125/79 Pulse Oximetry 96 95 Oxygen Delivery Method Room Air Room Air BMI result Body Mass Index 36.3 Vital signs revealed an elevated blood pressure of 143/70, otherwise vital signs were unremarkable. Exam: General: Awake, alert in no distress, weight 124.7 kg, elevated BMI 36.3 kg per m2 Head: Normocephalic, atraumatic EENT: PERRL, Lids normal, sclera normal, conjunctiva normal, nose normal , ears normal, throat without erythema or exudates Neck: Supple, no adenopathy Lung: breath sounds symmetric, no wheezing, rales or rhonchi Chest: symmetric movement, nontender Heart: regular rate and rhythm, normal S1, S2 no murmurs or rubs Abdomen: Obese, moderate epigastric tenderness, moderate to severe left upper quadrant tenderness, normoactive bowel sounds, no rebound, no voluntary or involuntary guarding Back: no vertebral tenderness, no CVAT Extremities: no deformities, moves all extremities symmetrically Neuro: Awake, alert, oriented, normal speech, cranial nerves intact, moves all extremities symmetrically Psych: Pleasant, cooperative Medical Decision Making Medical Decision Making MDM Narrative: 58-year-old male with a history of GERD who presents emergency department for evaluation of moderate to severe, sharp, abdominal pain which started suddenly yesterday at 15:00 hours and has been waxing and waning intensity since onset. This is the patient's 1st episode of this type of pain. He denied fever, chills, vomiting or diarrhea Differential diagnosis: ?Includes but is not limited to pancreatitis, diverticulitis, perforation, bowel obstruction, gastritis, anemia, electrolyte abnormalities Course: 06:19 My interpretation patient's laboratory evaluation is as follows: WBC elevated 12,000. Elevated glucose 117. LFTs were normal. Lipase was normal Patient was ordered to get morphine 4 mg IV, Zofran 4 mg IV, normal saline x1 L. I also ordered a CT scan of the abdomen pelvis with IV contrast to further evaluate the patient's abdominal pain. 07:23 At the end of my shift, the patient has not received the above medications and the CT scan is not been obtained yet. The patient's care was turned over to my colleague, Dr. Son. Admission/Observation Consideration of admission/observation: Escalation of care including admission/observation considered (Yes) Lab Data MDM Lab Attestation statement: I reviewed the patient's lab results. 08/03/24 21:33 08/03/24 21:33 Labs: Lab Results 08/03/24 Range/Units 21:33 WBC 12.0 H (4.8-10.8) X10*3/uL RBC 4.85 (4.60-5.80) X10*6/uL Hgb 14.5 (14.0-18.0) g/dl Hct 43.6 (42.0-52.0) % MCV 89.9 (80.0-98.0) fL MCH 29.9 (27.0-33.0) pg MCHC 33.3 (31.0-36.0) g/dl RDW 13.2 (11.0-16.0) % Plt Count 285 D (160-400) X10*3/uL MPV 9.4 (9.4-12.4) fL Immature Gran % (Auto) 0.7 H (0.0-0.4) % Neut % (Auto) 81.0 H (45-73) % Lymph % (Auto) 10.0 L (20-40) % [place] % (Auto) 5.5 (2-11) % Eos % (Auto) 2.4 (0-4) % Baso % (Auto) 0.4 (0-2) % Lymph # (Auto) 1.2 (1.2-4.9) X10*3/uL [place] # (Auto) 0.7 (0.1-1.2) X10*3/uL Eos # (Auto) 0.3 (0.0-0.4) X10*3/uL Baso # (Auto) 0.1 (0.0-0.2) X10*3/uL Abs Immat Gran (auto) 0.08 H (0.00-0.03) X10*3/uL Absolute Neuts (auto) 9.7 H (2.0-8.3) x10*3/uL Absolute Nucleated RBC 0.000 (0.0-0.012) X10*3/uL Nucleated RBC % (auto) 0.0 (0.0-0.2) /100WBC Sodium 138 (135-145) mmol/L Potassium 3.8 (3.3-5.1) mmol/L Chloride 108 (96-108) mmol/L Carbon Dioxide 23 (22-29) mmol/L Anion Gap 11 L (12-20) BUN 9 (9-16) mg/dL Creatinine 0.69 (0.5-1.4) mg/dL Estim Creat Clear Calc 165.4 Estimated GFR > 60 Random Glucose 117 H (60-115) mg/dL Calcium 9.4 (8.4-10.2) mg/dL Total Bilirubin 0.4 (0.0-1.0) mg/dL Direct Bilirubin 0.1 (0.0-0.5) mg/dL AST 20 (5-37) U/L ALT 21 (0-40) U/L Alkaline Phosphatase 81 (39-117) U/L Total Protein 7.5 (6.5-8.0) g/dL Albumin 4.4 (3.5-5.0) g/dL Lipase 12 (8-78) U/L Independent Historian Clinical information obtained from an independent historian. History obtained from or confirmed by: Other (Girlfriend) Medications Administered Discontinued Medications Generic Name Dose Route Start Last Admin Trade Name Freq PRN Reason Stop Dose Admin Acetaminophen 975 mg 08/03/24 23:39 08/04/24 00:15 Acetaminophen 325 Mg Tablet PO 08/03/24 23:40 975 mg ONCE ONE Administration Calcium Carbonate 750 mg 08/04/24 00:21 08/04/24 00:32 Calcium Carbonate 750 Mg Tab.Chew PO 08/04/24 00:22 750 mg ONCE ONE Administration Discharge Plan Discharge Clinical Impression: Abdominal pain Patient Disposition: Still a Patient Prescriptions: No Action naproxen [Naprosyn] 500 mg tablet 500 mg PO BID Qty: 20 0RF oxycodone 5 mg tablet 5 mg PO Q8H PRN (Reason: pain) Qty: 10 0RF Rx Instructions: Partial Fill upon patient request. bacitracin 500 unit/gram ointment 1 appl topical BID Qty: 14.2 0RF oxycodone 5 mg tablet 5 mg PO Q6H PRN (Reason: pain) Qty: 10 0RF Rx Instructions: Partial Fill upon patient request. docusate sodium [Colace] 100 mg capsule 100 mg PO BID Qty: 20 0RF Print Language: Danish
[2024-08-04] MEDS: Morphine Sulfate 4 MG/ML CARTRIDGE IVPUSH ×2 (07:16→21:45)
[2024-08-04] MEDS: ondansetron HCL 4 MG/2 ML VIAL IVPUSH (07:16)
[2024-08-04] MEDS: 0.9 % Sodium Chloride 1,000 ML 999 ML IV (07:18)
[2024-08-04] MEDS: iohexoL 350 MG/ML 100 ML INFUS..BTL IV (08:57)
--- NOTE | 2024-08-04 09:45 | PC.NURSE ---
Alert and oriented, medicated per mar with good effect. Went for CT, awaiting results. at bedside
--- NOTE | 2024-08-04 11:51 | P.HPHOSP_ITS ---
History of Present Illness Date of Service: 08/04/24 Attending physician on admission: Pablo Abbott Chief Complaint: Abd pain Pt is a 58-year-old male with a PMH significant for?mild intermittent asthma, congenital deafness, and hx of rectal prolapse who presents to the ED with?severe abdominal pain x1 day. Patient reports began experiencing abdominal discomfort yesterday morning that significantly worsened at 15:00. Pain was sharp and stabbing in nature, intermittent, coming in waves, and radiated to right side. Patient reports had last bowel movement at noon yesterday prior to worsening abdominal pain. Continues to pass gas. No nausea, vomiting, or diarrhea. No chest pain, pressure, or palpitations. Denies SOB or difficulty breathing. No fever or chills. Pt denies any recent weight loss or increased fatigue. No melena or hematochezia. Pt has not previously undergone a colonoscopy. In the ED pt was initially hypertensive up to 152/88, otherwise labs WNL and stable. Labs were significant for leukocytosis 12.0, otherwise grossly unremarkable. Stable H& H. No significant electrolyte abnormalities. Renal and hepatic function baseline. CT?abdomen and pelvis found 6 cm segmental wall thickening/edema pattern and pericolonic edema pattern of distal transverse colon concerning for malignancy. Pt was treated with acetaminophen, Tums, ondansetron, IVF, and morphine. ED clinician reached out to GI who suggested that patient be admitted to the hospital for colonoscopy tomorrow morning. Pt will be admitted to the hospital for treatment and further evaluation of intractable abdominal pain likely secondary to colonic mass concerning for malignancy. Review of Systems 2 Review of Systems: Negative except for that which is stated in the HPI. Yes all other systems are reviewed and are negative [facility] Medical History (Updated 08/04/24 @ 13:00 by SARAH Damon) Mild intermittent asthma Congenital deafness Hard of hearing Family History Other Family history unknown Surgical History No pertinent past surgical history Social History Alcohol intake: never Patient Tobacco Use Status: Never used Tobacco Smoked in Last 30 Days: Yes Use of substances other than those prescribed or required for medical reasons: No Advance Directives: No Advance Directives Information Provided: No Meds Allergies Allergy/AdvReac Type Severity Reaction Status Date / Time No Known Allergies Allergy Verified 08/03/24 19:37 Home Medications ?Medication ?Instructions ?Recorded ?Confirmed ?Last Taken ?Type acetaminophen 325 mg tablet 650 mg PO BID PRN Pain 08/04/24 08/04/24 Unknown History Physical Exam 2 Vital Signs and Narrative: Vital Signs: Last Vital Signs Temp 98.5 F 08/04/24 06:18 Pulse 62 08/04/24 06:18 Resp 20 08/04/24 07:16 BP 125/79 08/04/24 06:18 Pulse Ox 95 08/04/24 06:18 O2 Del Method Room Air 08/04/24 06:18 BMI result Body Mass Index 36.3 General: AOx3, no acute distress Resp: CTA bilaterally CVS: S1, S2, RRR GI: +BS, no distention, moderate suprapubic tenderness Skin: Warm, dry Neuro: Cranial nerves II-XII grossly intact bilaterally. Motor grossly intact bilaterally Extremities: No edema Psych: Appropriate affect Results Labs 08/03/24 21:33 08/03/24 21:33 Labs: Laboratory Results - last 24 hr 08/03/24 21:33 MCV 89.9 MCH 29.9 MCHC 33.3 RDW 13.2 Plt Count 285 D MPV 9.4 Immature Gran % (Auto) 0.7 H Neut % (Auto) 81.0 H Lymph % (Auto) 10.0 L [place] % (Auto) 5.5 Eos % (Auto) 2.4 Baso % (Auto) 0.4 Lymph # (Auto) 1.2 [place] # (Auto) 0.7 Eos # (Auto) 0.3 Baso # (Auto) 0.1 Abs Immat Gran (auto) 0.08 H Absolute Neuts (auto) 9.7 H Absolute Nucleated RBC 0.000 Nucleated RBC % (auto) 0.0 Anion Gap 11 L Estim Creat Clear Calc 165.4 Estimated GFR > 60 Random Glucose 117 H Calcium 9.4 Total Bilirubin 0.4 Direct Bilirubin 0.1 AST 20 ALT 21 Alkaline Phosphatase 81 Total Protein 7.5 Albumin 4.4 Lipase 12 Imaging Radiologist's Impressions: Impressions Abdomen/Pelvis CT 08/04/24 08:33 IMPRESSION: 6 cm segmental wall thickening/edema pattern and pericolonic edema pattern, distal transverse colon concerning for malignancy. Focal ischemia versus inflammatory processes could be included in the differential diagnosis. Discussed with the requesting physician in the emergency department at 9:23 AM. Fleischner guidelines were followed. Electronically signed by: Alexis Alan MD 08/04/2024 09:43 AM OJ Assessment and Plan (1) Colonic mass: Status: Acute (2) Abdominal pain: Qualifiers: Abdominal location: left upper quadrant Qualified Code(s): R10.12 - Left upper quadrant pain Status: Acute Plan Pt is a 58-year-old male with a PMH significant for?mild intermittent asthma, congenital deafness, and hx of rectal prolapse who presents to the ED with?severe abdominal pain x1 day. Pt will be admitted to the hospital for treatment and further evaluation of intractable abdominal pain likely secondary to colonic mass concerning for malignancy. Colonic mass Patient with intractable abdominal pain x1 day, central radiating to right side No N/V/D, last BM yesterday at noon CT of abd/pelvis showing 6 cm distal transverse colon mass concerning for malignancy Analgesics for pain management Clear liquid diet now, NPO after midnight Bowel prep for colonoscopy as per GI recommendations GI consult Mild intermittent asthma Not in acute exacerbation Continue home inhalers Full Code Attending:?Dr. Abbott DVT Prophylaxis: Pneumatic compression due to impending procedure tomorrow morning Pt will require a hospitalization of at least two nights for treatment of? intractable abdominal pain likely secondary to colonic mass concerning for malignancy. Patient will require hospital level care for IV medication, specialist consultation with GI, and colonoscopy in the morning. Quality Stroke Does the patient have a stroke diagnosis?: No VTE Prior VTE?: No VTE Risk Level:: Medical - moderate - high VTE Device Contraindication: N/A - Device Ordered VTE Drug Contraindication: Treatment Not Indicated
--- NOTE | 2024-08-04 13:49 | PHA.MEDREC ---
Addendum entered by Quincy Salinas RPh 08/04/24 13:51: Reviewed by [facility] Original Note: Pharmacy Consult ? Medication Reconciliation Pharmacy has completed the medication reconciliation. Spoke to patient and he states he only takes Tylenol 650 bid prn.
--- NOTE | 2024-08-04 14:44 | PC.NURSE ---
report given to overflow RN
--- NOTE | 2024-08-04 15:03 | MHC.SHP ---
Pre-Procedural Eval Section A - 24 Hr Update-Section A only Date of Service: 08/04/24 The patient is an INPATIENT: Yes Changes since office visit: No Cold of Flu in the past 2 weeks, No New Medical Problems, No Changes in Medication and No Patient answered all questions The patient has been examined within 24 hours of the surgical procedure. The History & Physical has been completed within 30 days and I have reviewed it.: Yes Section B - Complete if H&P > 30 days Chief Complaint: intractable abd pain, ?malignant mass Allergies: Allergies Allergy/AdvReac Type Severity Reaction Status Date / Time No Known Allergies Allergy Verified 08/03/24 19:37 Plan I have reviewed the history and physical and performed a pertinent physical examination on my patient. No changes have occurred unless specified. Time Spent With Patient Time: Total time managing care of this patient today ____ minutes.
--- NOTE | 2024-08-04 15:03 | PM.EVENT ---
Event Note Date of Service: 08/04/24 Event Note: GI colonoscopy planned for 08/05 for further evaluation of CT findings. Time Spent With Patient Time: Total time managing care of this patient today ____ minutes.
[2024-08-04] MEDS: Acetaminophen 325 MG TABLET 650 MG PO (15:36)
--- NOTE | 2024-08-04 15:47 | PC.NURSE ---
Gavilyte to be started tonight. pt is eating, following clear liq diet and does not want to start Gavilyte at this time
[2024-08-04] MEDS: PEG 3350/Na Sulf,Bicarb,Cl/KCL 4,000 ML SOLN.RECON 4000 ML PO (17:20)
[2024-08-04] MEDS: Famotidine 20 MG TABLET PO (21:41)
--- NOTE | 2024-08-04 23:32 | CONS_ITS ---
DATE OF SERVICE: 08/04/2024 REFERRING PHYSICIAN: Dr. Son REASON FOR CONSULTATION: Abnormal CT with question of mass in the colon. HISTORY OF PRESENT ILLNESS: The patient is a pleasant 58-year-old man who was admitted to the hospital after presenting to the emergency room with complaints of abdominal pain. This began the day before admission and persisted. The pain occurred in the abdomen and radiated into the back and right side. The pain waxed and waned and he presented to the emergency room. He also noticed some abdominal distention. He denies any fevers or chills. In the emergency department, he was evaluated with laboratory studies and imaging, which are reviewed. The major finding on his imaging is a possible mass in the distal transverse colon. The patient has never undergone colonoscopy. He has not noted any blood in his stools. PAST MEDICAL HISTORY: 1. Asthma. 2. Congenital hearing impairment. 3. Rectal prolapse. CURRENT MEDICATIONS: Current medication list is reviewed in the chart. ALLERGIES: THERE ARE NONE REPORTED. FAMILY HISTORY: This is not significant for any known colon cancer. SOCIAL HISTORY: He does smoke. He denies alcohol use. REVIEW OF SYSTEMS: SKIN: No pruritus. HEENT: Negative. CARDIOPULMONARY: He denies shortness of breath or chest pain. GASTROINTESTINAL: As above. GENITOURINARY: Negative. NEUROPSYCHIATRIC: Negative. PHYSICAL EXAMINATION: GENERAL: Shows a pleasant male, lying comfortably in bed. VITAL SIGNS: Reviewed in electronic medical record and are stable. SKIN: Anicteric. HEENT: Shows no scleral icterus. NECK: Without lymphadenopathy or thyromegaly. LUNGS: Clear. HEART: Shows a regular rate and rhythm. S1, S2. No murmur. ABDOMEN: Soft without focal masses or tenderness. Bowel sounds are present. No organomegaly is noted. EXTREMITIES: Without edema. LABORATORY DATA AND IMAGING STUDIES: Reviewed. IMPRESSION: Abdominal pain with abnormal CT scan. I have discussed colonoscopy with him for further evaluation to rule out malignancy. He understands risks and benefits and agrees to proceed. This will be scheduled for tomorrow. Thanks for asking me to see him. I will follow him in the hospital with you. MD BUCK Marroquin/MEG / [id number] MOE
[2024-08-05] VITALS (9 sets, daily range): BP systolic 97–142; BP diastolic 59–77; PULSE 51–65; RESP 16–18; TEMP 36.1–37; O2SAT 93–98
--- NOTE | 2024-08-05 02:02 | PC.NURSE ---
pt started bowel prep at 2300 and has not yet had a bowel movement. He is still passing gas
[2024-08-05] MEDS: 0.9 % Sodium Chloride Flush 3 ML SYRINGE IVFLUSH ×3 (02:11→14:26)
--- NOTE | 2024-08-05 02:30 | PC.NURSE ---
pt had BM, moderate amount liquid
[2024-08-05 04:43] LABS: Hematocrit 43.7 % (42.0-52.0); Hemoglobin 14.2 g/dl (14.0-18.0); Mean Corpuscular HGB Conc 32.5 g/dl (31.0-36.0); Mean Corpuscular Hemoglobin 29.8 pg (27.0-33.0); Mean Corpuscular Volume 91.6 fL (80.0-98.0); Mean Platelet Volume 9.6 fL (9.4-12.4); Platelet Count 296 X10*3/uL (160-400); Red Blood Count 4.77 X10*6/uL (4.60-5.80); Red Cell Distribution Width 13.2 % (11.0-16.0); White Blood Count 10.6 X10*3/uL (4.8-10.8)
[2024-08-05 04:59] LABS: Anion Gap 17 (12-20); Blood Urea Nitrogen 7 mg/dL (9-16); Calcium 9.7 mg/dL (8.4-10.2); Carbon Dioxide 27 mmol/L (22-29); Chloride 99 mmol/L (96-108); Creatinine Clr Calc Pharmacy 146.3; Estimated Glomerular Filt Rate > 60; Glucose Random 83 mg/dL (60-115); Potassium 3.8 mmol/L (3.3-5.1); Sodium 139 mmol/L (135-145)
--- NOTE | 2024-08-05 06:43 | PC.NURSE ---
Pt up ambulatory to commode multiple times throughout the night for bowel movements with the bowel prep. pt in no apparent distress
--- NOTE | 2024-08-05 10:58 | PC.NURSE ---
Addendum entered by Piotr Philip RN 08/05/24 13:37: Pt now being admitted to M/S rm 351. PACU to give report to floor. Original Note: pt down to colonoscopy at ~1050. Belongings remain in overflow 4 as pt does not have a bed on /S yet except for pts glasses and hearing aids as he wanted to wear them to [facility] in the event he had to sign anything. RN aware he will be coming with those items.
--- NOTE | 2024-08-05 11:56 | P.CONAN_ITS ---
[facility] Active Problems Active Problems: All Active Problems Colonic mass (Acute) Abdominal pain (Acute) Past Medical History Medical History Mild intermittent asthma Congenital deafness Hard of hearing Functional capacity: independent ambulation Family History Family History Other Family history unknown Family history of problems with anesthesia: No Surgical History Surgical History No pertinent past surgical history History of Problems with Anesthesia: No Social History Social History Alcohol intake: never Patient Tobacco Use Status: Current everyday Tobacco user Tobacco use type: Cigarette Cigarette Packs Per Day: 0.5 Cigarettes Per Day: 10.0 Smoked in Last 30 Days: Yes Second Hand Smoke Exposure: No Use of substances other than those prescribed or required for medical reasons: No Are you DNR?: No Advance Directives: No Advance Directives Information Provided: No Advance Directives on File: No Meds Allergies Allergy/AdvReac Type Severity Reaction Status Date / Time No Known Allergies Allergy Verified 08/03/24 19:37 Active Medications: Current Medications Acetaminophen (Acetaminophen 325 Mg Tablet) 650 mg PO Q6H PRN PRN Reason: Pain, Mild (Pain Scale 1-3), fever or headache Last Admin: 08/04/24 15:36 Dose: 650 mg Benzonatate (Benzonatate 100 Mg Capsule) 100 mg PO TID PRN PRN Reason: Cough Calcium Carbonate (Calcium Carbonate 750 Mg Tab.Chew) 750 mg PO Q4H PRN PRN Reason: Heartburn Famotidine (Famotidine 20 Mg Tablet) 20 mg PO BID NISA Last Admin: 08/05/24 10:10 Dose: Not Given Lactated Ringer's (Lr) 1,000 mls @ 80 mls/hr IVCONT .[id number] NISA Magnesium Hydroxide (Milk Of Magnesia 30 Ml Oral.Susp) 30 ml PO DAILY PRN PRN Reason: Constipation Melatonin (Melatonin 3 Mg Tablet) 6 mg PO BEDTIME PRN PRN Reason: Insomnia Morphine Sulfate (Morphine Sulfate 4 Mg/Ml Cartridge) 4 mg IVPUSH Q4H PRN; Protocol PRN Reason: Pain, Severe (Pain Scale 7-10) Last Admin: 08/04/24 21:45 Dose: 4 mg Ondansetron HCl (Ondansetron Hcl 4 Mg/2 Ml Vial) 4 mg IVPUSH Q8H PRN PRN Reason: Nausea and Vomiting Oxycodone HCl (Oxycodone Hcl Immed Release 5 Mg Tablet) 5 mg PO Q6H PRN PRN Reason: Pain, Moderate(Pain Scale 4-6) Sodium Chloride (0.9 % Sodium Chloride Flush 3 Ml Syringe) [facility] Last Admin: 08/05/24 09:20 Dose: 3 ml Home Medications ?Medication ?Instructions ?Recorded ?Confirmed ?Last Taken ?Type acetaminophen 325 mg tablet 650 mg PO BID PRN Pain 08/04/24 08/04/24 Unknown History Exam Height,Weight and Vital Signs: Height 6 ft 1 in Weight 124.738 kg Last Vital Signs Temp 98.6 F 08/05/24 10:57 Pulse 60 08/05/24 10:57 Resp 16 08/05/24 10:57 BP 124/73 08/05/24 10:57 Pulse Ox 96 08/05/24 10:57 O2 Del Method Room Air 08/05/24 10:57 Pertinent Lab Results Pertinent Lab Results: Laboratory Tests 08/03/24 08/05/24 21:33 04:16 WBC 12.0 H 10.6 RBC 4.85 4.77 Hgb 14.5 14.2 Hct 43.6 43.7 MCV 89.9 91.6 MCH 29.9 29.8 MCHC 33.3 32.5 RDW 13.2 13.2 Plt Count 285 D 296 MPV 9.4 9.6 Immature Gran % (Auto) 0.7 H Neut % (Auto) 81.0 H Lymph % (Auto) 10.0 L [place] % (Auto) 5.5 Eos % (Auto) 2.4 Baso % (Auto) 0.4 Lymph # (Auto) 1.2 [place] # (Auto) 0.7 Eos # (Auto) 0.3 Baso # (Auto) 0.1 Abs Immat Gran (auto) 0.08 H Absolute Neuts (auto) 9.7 H Absolute Nucleated RBC 0.000 0.000 Nucleated RBC % (auto) 0.0 0.0 Sodium 138 139 Potassium 3.8 3.8 Chloride 108 99 Carbon Dioxide 23 27 Anion Gap 11 L 17 BUN 9 7 L Creatinine 0.69 0.78 Estim Creat Clear Calc 165.4 146.3 Estimated GFR > 60 > 60 Random Glucose 117 H 83 Calcium 9.4 9.7 Total Bilirubin 0.4 Direct Bilirubin 0.1 AST 20 ALT 21 Alkaline Phosphatase 81 Total Protein 7.5 Albumin 4.4 Lipase 12 Airway Mallampati Class: III TM Dist: >3cm Neck ROM: Full Heart: RRR Lungs: CTA Assessment and Plan Assessment Anesthesia Assessment: Anesthesia Plan Discussed, Smoking Cess. Discussed and Chart Reviewed Final Anesthetic Review Family History of Problems with Anesthesia: No History of Problems with Anesthesia: No NPO: Yes ASA Class: III and Emergency Final Preanesthetic Review: Meds/Allgs Chart Reviewed, Consent Obtained/Reviewed and Anes Risks/Benef Reviewed Patient Risk: Intermediate Procedure Risk: Low Anesthetic Plan Anesthetic Plan: MAC: Disposition: Standard PACU
--- NOTE | 2024-08-05 13:03 | PM.OP ---
Brief Operative Note Date of Service: 08/05/24 Pre-op diagnosis: colon mass Post-op diagnosis: same Procedure: colonoscopy Surgeon: Juan Pablo Tom MD Anesthesia: MAC Was an Packing Tractor Machine Operator used for this Procedure?: No Estimated blood loss (mL): 2 Pathology: other Condition: stable Disposition: PACU
--- NOTE | 2024-08-05 13:06 | PM.EVENT ---
Event Note Date of Service: 08/05/24 Event Note: Colonoscopy dictated at 70-75 cm, distal tv colon apple core mass consistent with carcinoma, biopsied. lumen narrowed to about 10mm, scope passed to cecum. location marked with Nya ink 3 polyps snared. gen surg consult clears for now. Time Spent With Patient Time: Total time managing care of this patient today ____ minutes.
--- NOTE | 2024-08-05 13:27 | OP_ITS ---
DATE OF SERVICE: 08/05/2024 SURGEON: Juan Pablo Tom MD INDICATIONS: Abdominal pain and CT scan consistent with distal transverse colon mass. PREOPERATIVE DIAGNOSIS: POSTOPERATIVE DIAGNOSIS: PROCEDURE PERFORMED: Colonoscopy to the terminal ileum with snare polypectomy, biopsy, and injection of Nya ink. ESTIMATED BLOOD LOSS: COMPLICATIONS: ANESTHESIA: Medications; monitored anesthesia care. ASSISTANTS: SPECIMENS: DESCRIPTION OF PROCEDURE: The history and physical performed, the risks and benefits of the procedure were explained to the patient, and informed consent was obtained. The patient was placed in the left lateral decubitus position. A digital rectal exam was performed and was found to be normal. The Olympus pediatric video colonoscope was introduced into the rectum and advanced to the cecum. The cecum was identified by transillumination, palpation, and identification of ileocecal valve. Examination was performed. The scope was removed. He tolerated the procedure well and was taken to the recovery area in stable condition. FINDINGS: The terminal ileum was examined and appeared normal. There were 2 polyps in the right colon measuring less than 10 mm and these were removed with cold snare and recovered via suction. In the distal transverse colon, between 70 cm and 75 cm from the anal verge, was a circumferential 5 cm mass with a small 10 mm or 11 mm lumen consistent with the apple-core lesion described on the CAT scan. The mass was friable and ulcerated consistent with carcinoma. Biopsies were obtained from the lesion. Nya ink was injected submucosally (1ml x4) on downstream aspect of the mass. A final polyp at 35 cm measuring 10 mm was removed with a hot snare and recovered via suction. The quality of the prep was good. Retroflexed examination showed some small internal hemorrhoids. IMPRESSION: 1. Distal transverse colon mass concordant with the findings on CT, likely carcinoma. 2. Colon polyps. RECOMMENDATIONS: 1. Follow up the biopsy results. 2. General surgery consultation. MD BUCK Marroquin/MEG / [id number] MTDD
--- NOTE | 2024-08-05 14:23 | P.PNIM_ITS ---
Subjective Subjective Date of Service: 08/05/24 Interval History: abd pain Review of Systems abd pain seems somewhat improving going for colonoscopy Physical Exam 2 Vital Signs: Vital Signs: Last Vital Signs Temp 97.0 F 08/05/24 13:23 Pulse 65 08/05/24 13:23 Resp 17 08/05/24 13:23 BP 124/71 08/05/24 13:23 Pulse Ox 97 08/05/24 13:23 O2 Del Method Room Air 08/05/24 13:23 BMI result Body Mass Index 36.3 General: AOx3, no acute distress Resp: CTA bilaterally CVS: S1, S2, RRR GI: +BS, no distention, mild dicomfort. Skin: Warm, dry Neuro: Cranial nerves II-XII grossly intact bilaterally. Motor grossly intact bilaterally Extremities: No edema Psych: Appropriate affect Objective Data Active Medications Acetaminophen (Acetaminophen 325 Mg Tablet) 650 mg PO Q6H PRN PRN Reason: Pain, Mild (Pain Scale 1-3), fever or headache Last Admin: 08/04/24 15:36 Dose: 650 mg Documented By: RADAMESFAEulalio Benzonatate (Benzonatate 100 Mg Capsule) 100 mg PO TID PRN PRN Reason: Cough Calcium Carbonate (Calcium Carbonate 750 Mg Tab.Chew) 750 mg PO Q4H PRN PRN Reason: Heartburn Famotidine (Famotidine 20 Mg Tablet) 20 mg PO BID [facility] Last Admin: 08/05/24 10:10 Dose: Not Given Documented By: TOÑO Non-Admin Reason: NPO Lactated Ringer's (Lr) 1,000 mls @ 80 mls/hr IVCONT .[id number] [facility] Magnesium Hydroxide (Milk Of Magnesia 30 Ml Oral.Susp) 30 ml PO DAILY PRN PRN Reason: Constipation Melatonin (Melatonin 3 Mg Tablet) 6 mg PO BEDTIME PRN PRN Reason: Insomnia Morphine Sulfate (Morphine Sulfate 4 Mg/Ml Cartridge) 4 mg IVPUSH Q4H PRN; Protocol PRN Reason: Pain, Severe (Pain Scale 7-10) Last Admin: 08/04/24 21:45 Dose: 4 mg Documented By: [place]-MARIELENAPE Naloxone HCl (Naloxone Hcl 0.4 Mg/Ml Vial) 0.04 mg IVPUSH Q5M PRN PRN Reason: Excessive sedation or RR < 8 Ondansetron HCl (Ondansetron Hcl 4 Mg/2 Ml Vial) 4 mg IVPUSH Q8H PRN PRN Reason: Nausea and Vomiting Oxycodone HCl (Oxycodone Hcl Immed Release 5 Mg Tablet) 5 mg PO Q6H PRN PRN Reason: Pain, Moderate(Pain Scale 4-6) Sodium Chloride (0.9 % Sodium Chloride Flush 3 Ml Syringe) 3 ml IVFLUSH QSHIFT [facility] Last Admin: 08/05/24 09:20 Dose: 3 ml Documented By: TOÑO Labs 08/05/24 04:16 08/05/24 04:16 Labs: Laboratory Results - last 24 hr 08/05/24 04:16 MCV 91.6 MCH 29.8 MCHC 32.5 RDW 13.2 Plt Count 296 MPV 9.6 Absolute Nucleated RBC 0.000 Nucleated RBC % (auto) 0.0 Anion Gap 17 Estim Creat Clear Calc 146.3 Estimated GFR > 60 Random Glucose 83 Calcium 9.7 Assessment and Plan (1) Colonic mass: Status: Acute (2) Abdominal pain: Status: Acute Assessment and Plan: 58-year-old male with a PMH significant for?mild intermittent asthma, congenital deafness, and hx of rectal prolapse who presents to the ED with?severe abdominal pain x1 day. Pt will be admitted to the hospital for treatment and further evaluation of intractable abdominal pain likely secondary to colonic mass concerning for malignancy. Colonic mass Patient with intractable abdominal pain x1 day, central radiating to right side No N/V/D, last BM yesterday at noon CT of abd/pelvis showing 6 cm distal transverse colon mass concerning for malignancy Analgesics for pain management Clear liquid diet now,colonoscopy -has possible mass general surgery consult. Mild intermittent asthma Not in acute exacerbation Continue home inhalers Full Code DVT Prophylaxis: Pneumatic compression due to impending procedure tomorrow morning ongoing need for hospitalization for treatment of? intractable abdominal pain likely secondary to colonic mass concerning for malignancy. Patient will require hospital level care for IV medication, general surgery eval. Quality Stroke Does the patient have a stroke diagnosis?: No VTE Prior VTE?: No VTE Risk Level:: Medical - moderate - high VTE Device Contraindication: N/A - Device Ordered VTE Drug Contraindication: Treatment Not Indicated
[2024-08-05] MEDS: Lactated Ringers 1,000 ML 80 ML IVCONT (14:26)
--- NOTE | 2024-08-05 14:46 | PC.NURSE ---
Pt is deaf, wear hearing aides and is able to lip read when not wearing hearing aides
--- NOTE | 2024-08-05 15:26 | PC.NURSE ---
PT came from PACU at 14:00, was was admitted and assessed for medsur care and reported no pain or discomfort. Dr. Fischer came to bedside to discuss procedure scheduled tomorrow.
[2024-08-05] MEDS: Morphine Sulfate 4 MG/ML CARTRIDGE IVPUSH ×2 (15:38→21:50)
--- NOTE | 2024-08-05 15:48 | P.CONGS_ITS ---
History of Present Illness Consult details Consult date: 08/05/24 Narrative: Patient is a 58-year-old male with several comorbidities who presented here with upper abdominal pain. Workup including CT scan followed by colonoscopy today demonstrated an apple-core nearly obstructing lesion of the distal transverse colon. Patient was never had colonoscopy prior to today. He otherwise has been able to tolerated his diet. He is having relatively regular bowel habits. He has history of rectal prolapse. Chart was reviewed and patient evaluated. No prior abdominal surgeries PMFSH Past Medical History Medical History Mild intermittent asthma Congenital deafness Hard of hearing Family History Family History Other Family history unknown Surgical History Surgical History No pertinent past surgical history Social History Social History Household Members: Significant Other Housing: House Do you presently have visiting nurse or other home services: No Alcohol intake: never Patient Tobacco Use Status: Current everyday Tobacco user Tobacco use type: Cigarette Cigarette Packs Per Day: 0.5 Cigarettes Per Day: 10.0 e-Cigarette/Vaping Use: Former Use Second Hand Smoke Exposure: No service: No Meds Allergies Allergy/AdvReac Type Severity Reaction Status Date / Time No Known Allergies Allergy Verified 08/03/24 19:37 Active Medications: Current Medications Acetaminophen (Acetaminophen 325 Mg Tablet) 650 mg PO Q6H PRN PRN Reason: Pain, Mild (Pain Scale 1-3), fever or headache Last Admin: 08/04/24 15:36 Dose: 650 mg Benzonatate (Benzonatate 100 Mg Capsule) 100 mg PO TID PRN PRN Reason: Cough Calcium Carbonate (Calcium Carbonate 750 Mg Tab.Chew) 750 mg PO Q4H PRN PRN Reason: Heartburn Famotidine (Famotidine 20 Mg Tablet) 20 mg PO BID [facility] Last Admin: 08/05/24 10:10 Dose: Not Given Lactated Ringer's (Lr) 1,000 mls @ 80 mls/hr IVCONT .[id number] [facility] Last Admin: 08/05/24 14:26 Dose: 80 mls/hr Magnesium Hydroxide (Milk Of Magnesia 30 Ml Oral.Susp) 30 ml PO DAILY PRN PRN Reason: Constipation Melatonin (Melatonin 3 Mg Tablet) 6 mg PO BEDTIME PRN PRN Reason: Insomnia Morphine Sulfate (Morphine Sulfate 4 Mg/Ml Cartridge) 4 mg IVPUSH Q4H PRN; Protocol PRN Reason: Pain, Severe (Pain Scale 7-10) Last Admin: 08/05/24 15:38 Dose: 4 mg Naloxone HCl (Naloxone Hcl 0.4 Mg/Ml Vial) 0.04 mg IVPUSH Q5M PRN PRN Reason: Excessive sedation or RR < 8 Ondansetron HCl (Ondansetron Hcl 4 Mg/2 Ml Vial) 4 mg IVPUSH Q8H PRN PRN Reason: Nausea and Vomiting Oxycodone HCl (Oxycodone Hcl Immed Release 5 Mg Tablet) 5 mg PO Q6H PRN PRN Reason: Pain, Moderate(Pain Scale 4-6) Sodium Chloride (0.9 % Sodium Chloride Flush 3 Ml Syringe) 3 ml [facility] Last Admin: 08/05/24 14:26 Dose: 3 ml Home Medications ?Medication ?Instructions ?Recorded ?Confirmed ?Last Taken ?Type acetaminophen 325 mg tablet 650 mg PO BID PRN Pain 08/04/24 08/04/24 Unknown History Physical Exam 2 Vital Signs: Vital Signs: Last Vital Signs Temp 98 F 08/05/24 15:30 Pulse 60 08/05/24 15:30 Resp 18 08/05/24 15:30 BP 134/70 08/05/24 15:30 Pulse Ox 93 08/05/24 15:30 O2 Del Method Room Air 08/05/24 15:30 BMI result Body Mass Index 36.3 Chest: Other: Chest breath sounds bilaterally, HS 1 in 2 GI: Other: Abdomen corpulent, soft, mild upper abdominal tenderness but no evidence of any guarding, rebound, or rigidity. Results Labs 08/05/24 04:16 08/05/24 04:16 Labs: Abnormal lab results 08/05/24 Range/Units 04:16 BUN 7 L (9-16) mg/dL Short CBC 08/05/24 Range/Units 04:16 WBC 10.6 (4.8-10.8) X10*3/uL Hgb 14.2 (14.0-18.0) g/dl Hct 43.7 (42.0-52.0) % Plt Count 296 (160-400) X10*3/uL [facility] 08/05/24 04:16 Sodium 139 Potassium 3.8 Chloride 99 Carbon Dioxide 27 BUN 7 L Creatinine 0.78 Calcium 9.7 All other labs normal. Assessment and Plan (1) Colonic mass: Status: Acute (2) Abdominal pain: Qualifiers: Abdominal location: left upper quadrant Qualified Code(s): R10.12 - Left upper quadrant pain Status: Acute Plan Apple core lesion involving distal transverse colon. Patient underwent bowel prep and is currently on clear liquids. Regardless of path results which are pending, patient will need this area resected. He does not wish to undergo a 2nd bowel prep, if possible. I will attempt to see if he can be put on the OR scheduled for tomorrow. Risks, benefits, and alternatives of transverse colonic resection were reviewed with the patient which included but not limited to bleeding, infection, recurrence, numbness, pain, scarring, ostomy placement and the patient wishes to proceed. Patient will tentatively be scheduled for tomorrow as an add on if possible. Procedures Date of Service Date of Service: 08/06/24
--- NOTE | 2024-08-05 16:21 | MHC.CM.PN ---
CM MET WITH PT AND S/O AT BEDSIDE PT LIVES AT HOME WITH HIS GF AND IS INDEPENDENT WITH CARE HE HAS NO DME AND NO SERVICES HE WILL CONSIDER COMPLETING A HCP DURING ADMISSION BUT IS NOT READY AT THIS TIME PCP: MARTHA BARTLETT DCP: HOME NO SERVICES S/O TO TRANSPORT
[2024-08-05] MEDS: Acetaminophen 325 MG TABLET 650 MG PO (17:58)
--- NOTE | 2024-08-05 18:43 | HO.POSTANES ---
Post Anesthesia Evaluation Post Anesthesia Evaluation Date of Service: 08/05/24 Vital Signs: Vital Signs Temp Pulse Resp BP Pulse Ox O2 Del Method 08/05/24 15:30 98 F 60 18 134/70 93 Room Air 08/05/24 14:25 97.9 F 62 16 142/77 H 98 Room Air 08/05/24 13:23 97.0 F 65 17 124/71 97 Room Air 08/05/24 13:05 97.0 F 60 16 97/59 L 98 Room Air 08/05/24 12:43 98 Room Air 08/05/24 10:57 98.6 F 60 16 124/73 96 Room Air 08/05/24 08:14 97.9 F 51 18 139/70 94 Room Air Anesthesia: Monitored Mental Status: Awake Pain Control: Satisfactory Nausea/Vomiting: None Hydration: Adequate Anesthesia-Related Issues: No Anes. Related Issues
[2024-08-05] MEDS: Famotidine 20 MG TABLET PO (19:29)
[2024-08-06] VITALS (19 sets, daily range): BP systolic 100–162; BP diastolic 50–116; PULSE 53–78; RESP 14–18; TEMP 36.2–37.3; O2SAT 90–97
[2024-08-06] MEDS: Lactated Ringers 1,000 ML 80 ML IVCONT ×2 (02:34→19:53)
[2024-08-06] MEDS: Famotidine 20 MG TABLET PO ×2 (09:04→19:47)
--- NOTE | 2024-08-06 12:25 | HO.ANESPROP2 ---
[facility] Active Problems Active Problems: All Active Problems Colonic mass (Acute) Abdominal pain (Acute) Past Medical History Medical History Mild intermittent asthma Congenital deafness Hard of hearing Functional capacity: independent ambulation Family History Family History Other Family history unknown Family history of problems with anesthesia: No Surgical History Surgical History No pertinent past surgical history History of Problems with Anesthesia: No Social History Social History Household Members: Significant Other Housing: House Do you presently have visiting nurse or other home services: No Alcohol intake: never Patient Tobacco Use Status: Current everyday Tobacco user Tobacco use type: Cigarette Cigarette Packs Per Day: 0.5 Cigarettes Per Day: 10.0 e-Cigarette/Vaping Use: Former Use Second Hand Smoke Exposure: No service: No Meds Allergies Allergy/AdvReac Type Severity Reaction Status Date / Time No Known Allergies Allergy Verified 08/03/24 19:37 Active Medications: Current Medications Acetaminophen (Acetaminophen 325 Mg Tablet) 650 mg PO Q6H PRN PRN Reason: Pain, Mild (Pain Scale 1-3), fever or headache Last Admin: 08/05/24 17:58 Dose: 650 mg Benzonatate (Benzonatate 100 Mg Capsule) 100 mg PO TID PRN PRN Reason: Cough Calcium Carbonate (Calcium Carbonate 750 Mg Tab.Chew) 750 mg PO Q4H PRN PRN Reason: Heartburn Famotidine (Famotidine 20 Mg Tablet) 20 mg PO BID [facility] Last Admin: 08/06/24 09:04 Dose: 20 mg Lactated Ringer's (Lr) 1,000 mls @ 80 mls/hr IVCONT .[id number] [facility] Last Admin: 08/06/24 02:34 Dose: 80 mls/hr Magnesium Hydroxide (Milk Of Magnesia 30 Ml Oral.Susp) 30 ml PO DAILY PRN PRN Reason: Constipation Melatonin (Melatonin 3 Mg Tablet) 6 mg PO BEDTIME PRN PRN Reason: Insomnia Morphine Sulfate (Morphine Sulfate 4 Mg/Ml Cartridge) 4 mg IVPUSH Q4H PRN; Protocol PRN Reason: Pain, Severe (Pain Scale 7-10) Last Admin: 08/05/24 21:50 Dose: 4 mg Naloxone HCl (Naloxone Hcl 0.4 Mg/Ml Vial) 0.04 mg IVPUSH Q5M PRN PRN Reason: Excessive sedation or RR < 8 Neomycin/Polymyxin/Hydrocortisone (Neomycin/Polymyxin/Hc Otic Sada 10 Ml Drpbtl) 3 drop EAR-RIGHT QID [facility] Last Admin: 08/06/24 09:05 Dose: Not Given Ondansetron HCl (Ondansetron Hcl 4 Mg/2 Ml Vial) 4 mg IVPUSH Q8H PRN PRN Reason: Nausea and Vomiting Oxycodone HCl (Oxycodone Hcl Immed Release 5 Mg Tablet) 5 mg PO Q6H PRN PRN Reason: Pain, Moderate(Pain Scale 4-6) Sodium Chloride (0.9 % Sodium Chloride Flush 3 Ml Syringe) [address] [facility] Last Admin: 08/06/24 09:04 Dose: Not Given Home Medications ?Medication ?Instructions ?Recorded ?Confirmed ?Last Taken ?Type acetaminophen 325 mg tablet 650 mg PO BID PRN Pain 08/04/24 08/04/24 Unknown History Exam Height,Weight and Vital Signs: Height 6 ft 1 in Weight 124.738 kg Last Vital Signs Temp 98.3 F 08/06/24 10:54 Pulse 63 08/06/24 10:54 Resp 16 08/06/24 10:54 BP 120/71 08/06/24 10:54 Pulse Ox 94 08/06/24 10:54 O2 Del Method Room Air 08/06/24 10:54 Pertinent Lab Results Pertinent Lab Results: Laboratory Tests 08/03/24 08/05/24 08/05/24 21:33 04:16 19:52 WBC 12.0 H 10.6 RBC 4.85 4.77 Hgb 14.5 14.2 Hct 43.6 43.7 MCV 89.9 91.6 MCH 29.9 29.8 MCHC 33.3 32.5 RDW 13.2 13.2 Plt Count 285 D 296 MPV 9.4 9.6 Immature Gran % (Auto) 0.7 H Neut % (Auto) 81.0 H Lymph % (Auto) 10.0 L [place] % (Auto) 5.5 Eos % (Auto) 2.4 Baso % (Auto) 0.4 Lymph # (Auto) 1.2 [place] # (Auto) 0.7 Eos # (Auto) 0.3 Baso # (Auto) 0.1 Abs Immat Gran (auto) 0.08 H Absolute Neuts (auto) 9.7 H Absolute Nucleated RBC 0.000 0.000 Nucleated RBC % (auto) 0.0 0.0 Sodium 138 139 Potassium 3.8 3.8 Chloride 108 99 Carbon Dioxide 23 27 Anion Gap 11 L 17 BUN 9 7 L Creatinine 0.69 0.78 Estim Creat Clear Calc 165.4 146.3 Estimated GFR > 60 > 60 Random Glucose 117 H 83 Calcium 9.4 9.7 Total Bilirubin 0.4 Direct Bilirubin 0.1 AST 20 ALT 21 Alkaline Phosphatase 81 Total Protein 7.5 Albumin 4.4 Lipase 12 Carcinoembryonic Ag 7.60 Airway Mallampati Class: II TM Dist: >3cm Neck ROM: Full Heart: rrr Lungs: cta Assessment and Plan Assessment Anesthesia Assessment: Anesthesia Plan Discussed and Chart Reviewed Final Anesthetic Review Family History of Problems with Anesthesia: No History of Problems with Anesthesia: No NPO: Yes ASA Class: II Final Preanesthetic Review: No Changes in Pt Med Stat, Meds/Allgs Chart Reviewed and Consent Obtained/Reviewed Patient Risk: Low Procedure Risk: Intermediate Anesthetic Plan Anesthetic Plan: GA Disposition: Standard PACU
--- NOTE | 2024-08-06 13:11 | W.PM.OPN ---
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 This had transmural extension with the omentum adhered to this mass.. No other gross intra-abdominal pathology demonstrated. No gross adenopathy seen or palpated. Liver grossly within normal limits. Very corpulent abdomen. Abdominal wall block per anesthesia. Markedly dilated proximal colon secondary to obstruction from tumor. Distal decompressed colon beyond the neoplasm. Findings: [] Patient was brought to the operating room, placed on operating table in supine position, after an adequate level of general anesthesia was induced, the patient's abdomen was prepped and draped in usual sterile fashion. Using a upper midline incision, this carried down through skin, subcutaneous tissue, and linea alba. Posterior fascia and peritoneum were opened and extended along the length of the incision. Packs and retractors were placed to enhance exposure. Intraoperative findings were as noted above. Partial omentectomy was accomplished using ligature device to resect the omentum which was adhered to the distal transverse colon tumor en mass. Next the hepatic flexure and the splenic flexure respectively were taken down to allow mobilization of the transverse colon. With adequately mobilized bowel, transverse colon was transected using LONNIE 80 and LONNIE 60 staplers respectively at the desired locations. Next the mesentery was sequentially taken down obtaining a high ligation for curative intent using a combination of double firing of ligature device and clamping, cutting, and tied with 0 Vicryl sutures to major pedicles. Specimen was sent to pathology with adhered omentum en block. With adequately mobilized and well-perfused proximal and distal colon, a functional end-to-end anastomosis was performed using LONNIE 60 and TA 60 staplers. At completion, anastomosis was patent and air traversed this was no leak. Crotch of the anastomosis was buttressed using seromuscular 3-0 silk sutures. Mesenteric defect was closed using interrupted 3-0 Vicryl sutures. Abdominal cavity was copiously irrigated and secured hemostasis. Wound was closed in the following manner; mass closure of fascia with looped 1. PDS closed fascia . Skin was closed using interrupted inverted dermal 3-0 Vicryl sutures followed by Steri-Strips and sterile dressings. Sponge, needle, and instrument counts were reported correct. Patient tolerated the procedure well and emerged from anesthesia in stable condition. EBL minimal
--- NOTE | 2024-08-06 13:28 | HO.PM.IMPN ---
Subjective Subjective Date of Service: 08/06/24 Interval History: colon mass Review of Systems abd pain improving no fever or nausea or vomiting Physical Exam Vital Signs: Vital Signs: Last Vital Signs Temp 98.3 F 08/06/24 10:54 Pulse 63 08/06/24 10:54 Resp 16 08/06/24 10:54 BP 120/71 08/06/24 10:54 Pulse Ox 94 08/06/24 10:54 O2 Del Method Room Air 08/06/24 10:54 BMI result Body Mass Index 36.3 General: AOx3, no acute distress Resp: CTA bilaterally CVS: S1, S2, RRR GI: +BS, no distention, mild dicomfort. Skin: Warm, dry Neuro: Cranial nerves II-XII grossly intact bilaterally. Motor grossly intact bilaterally Extremities: No edema Psych: Appropriate affect Objective Data Active Medications Acetaminophen (Acetaminophen 325 Mg Tablet) 650 mg PO Q6H PRN PRN Reason: Pain, Mild (Pain Scale 1-3), fever or headache Last Admin: 08/05/24 17:58 Dose: 650 mg Documented By: RAJI Benzonatate (Benzonatate 100 Mg Capsule) 100 mg PO TID PRN PRN Reason: Cough Calcium Carbonate (Calcium Carbonate 750 Mg Tab.Chew) 750 mg PO Q4H PRN PRN Reason: Heartburn Famotidine (Famotidine 20 Mg Tablet) 20 mg PO BID [facility] Last Admin: 08/06/24 09:04 Dose: 20 mg Documented By: BAKARI Fentanyl (Fentanyl Citrate/Pf 100 Mcg/2 Ml Vial) 50 mcg IVPUSH Q5M PRN PRN Reason: Pain, Moderate to Severe (Pain Scale 4-10) Stop: 08/06/24 18:26 Haloperidol Lactate (Haloperidol Lactate 5 Mg/Ml Vial) 1 mg IVPUSH ONCE PRN PRN Reason: intractable nausea Stop: 08/06/24 18:26 Lactated Ringer's (Lr) 1,000 mls @ 80 mls/hr IVCONT .[id number] [facility] Last Admin: 08/06/24 02:34 Dose: 80 mls/hr Documented By: DION Magnesium Hydroxide (Milk Of Magnesia 30 Ml Oral.Susp) 30 ml PO DAILY PRN PRN Reason: Constipation Melatonin (Melatonin 3 Mg Tablet) 6 mg PO BEDTIME PRN PRN Reason: Insomnia Morphine Sulfate (Morphine Sulfate 4 Mg/Ml Cartridge) 4 mg IVPUSH Q4H PRN; Protocol PRN Reason: Pain, Severe (Pain Scale 7-10) Last Admin: 08/05/24 21:50 Dose: 4 mg Documented By: DION Naloxone HCl (Naloxone Hcl 0.4 Mg/Ml Vial) 0.04 mg IVPUSH Q5M PRN PRN Reason: Excessive sedation or RR < 8 Naloxone HCl (Naloxone Hcl 0.4 Mg/Ml Vial) 0.04 mg IVPUSH Q5M PRN PRN Reason: Excessive sedation or RR < 8 Neomycin/Polymyxin/Hydrocortisone (Neomycin/Polymyxin/Hc Otic Sada 10 Ml Drpbtl) 3 drop EAR-RIGHT QID [facility] Last Admin: 08/06/24 09:05 Dose: Not Given Documented By: BAKARI Non-Admin Reason: Med Not Available Ondansetron HCl (Ondansetron Hcl 4 Mg/2 Ml Vial) 4 mg IVPUSH Q8H PRN PRN Reason: Nausea and Vomiting Oxycodone HCl (Oxycodone Hcl Immed Release 5 Mg Tablet) 5 mg PO Q6H PRN PRN Reason: Pain, Moderate(Pain Scale 4-6) Sodium Chloride (0.9 % Sodium Chloride Flush 3 Ml Syringe) 3 ml IVFLUSH [facility] Last Admin: 08/06/24 09:04 Dose: Not Given Documented By: BAKARI Non-Admin Reason: IV Running Labs 08/05/24 04:16 08/05/24 04:16 Labs: Laboratory Results - last 24 hr 08/05/24 19:52 Carcinoembryonic Ag 7.60 Assessment and Plan (1) Colonic mass: Status: Acute (2) Abdominal pain: Status: Acute Assessment and Plan: 58-year-old male with a PMH significant for?mild intermittent asthma, congenital deafness, and hx of rectal prolapse who presents to the ED with?severe abdominal pain x1 day. Pt will be admitted to the hospital for treatment and further evaluation of intractable abdominal pain likely secondary to colonic mass concerning for malignancy. 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 general surgery consult-possible surgery today ,npo. Mild intermittent asthma Not in acute exacerbation Continue home inhalers Full Code DVT Prophylaxis: Pneumatic compression due to impending procedure . ongoing need for hospitalization for treatment of? intractable abdominal pain likely secondary to colonic mass concerning for malignancy. Patient will require hospital level care for IV medication, general surgery eval. Quality Stroke Does the patient have a stroke diagnosis?: No VTE Prior VTE?: No VTE Risk Level:: Medical - moderate - high VTE Device Contraindication: N/A - Device Ordered VTE Drug Contraindication: Treatment Not Indicated
[2024-08-06] MEDS: fentaNYL citrate/PF 100 MCG/2 ML VIAL 50 MCG IVPUSH ×2 (13:40→13:45)
--- NOTE | 2024-08-06 13:43 | HO.POSTANES ---
Post Anesthesia Evaluation Post Anesthesia Evaluation Date of Service: 08/05/24 Vital Signs: Vital Signs Temp Pulse Resp BP Pulse Ox O2 Del Method O2 Flow Rate 08/06/24 13:40 17 08/06/24 13:30 60 18 151/75 H 97 Nasal Cannula with ETCO2 08/06/24 13:25 66 16 142/74 H 95 Nasal Cannula with ETCO2 4 08/06/24 13:20 61 16 141/75 H 95 Nasal Cannula with ETCO2 4 08/06/24 13:15 97.1 F 74 16 154/81 H 90 L Room Air 08/06/24 10:54 98.3 F 63 16 120/71 94 Room Air 08/06/24 07:38 99.1 F 54 18 123/76 93 Room Air 08/06/24 03:39 97.8 F 53 18 100/50 L 94 Room Air Anesthesia: Monitored Mental Status: Awake Pain Control: Satisfactory Nausea/Vomiting: None Hydration: Adequate Anesthesia-Related Issues: No Anes. Related Issues
[2024-08-06] MEDS: HYDROmorphone HCl 0.5 MG/0.5 ML SYRINGE 0.25 MG IVPUSH ×2 (14:05→14:15)
--- NOTE | 2024-08-06 16:21 | MHC.CM.PN ---
PT NOT YET CLEARED TO DC DCP: HOME VIA PRIVATE TRANSPORT
[2024-08-06] MEDS: HYDROmorphone HCl 0.5 MG/0.5 ML SYRINGE IVPUSH (16:46)
[2024-08-06] MEDS: Acetaminophen 1,000 MG/100 ML PIGGYBACK 400 MG IV (18:20)
[2024-08-06] MEDS: HYDROmorphone HCl 0.5 MG/0.5 ML SYRINGE 1 MG IVPUSH (19:52)
[2024-08-06] MEDS: NeoMYCIN/Polymyxin/HC Otic Sus 10 ML DRPBTL 3 DROP EAR-RIGHT (20:02)
[2024-08-06] MEDS: Calcium Carbonate 750 MG TAB.CHEW PO (23:13)
[2024-08-06] MEDS: oxyCODONE HCl Immed Release 5 MG TABLET 10 MG PO (23:16)
[2024-08-07] VITALS (8 sets, daily range): BP systolic 139–163; BP diastolic 77–84; PULSE 59–71; RESP 16–20; TEMP 36.4–37.4; O2SAT 91–97
[2024-08-07] MEDS: Acetaminophen 1,000 MG/100 ML PIGGYBACK 400 MG IV ×4 (00:18→18:50)
[2024-08-07] MEDS: HYDROmorphone HCl 0.5 MG/0.5 ML SYRINGE 1 MG IVPUSH ×3 (03:13→22:51)
[2024-08-07] MEDS: ondansetron HCL 4 MG/2 ML VIAL IVPUSH ×2 (03:13→09:29)
[2024-08-07] MEDS: Lactated Ringers 1,000 ML 80 ML IVCONT ×2 (05:26→18:16)
[2024-08-07] MEDS: Calcium Carbonate 750 MG TAB.CHEW PO ×2 (07:38→15:21)
[2024-08-07] MEDS: oxyCODONE HCl Immed Release 5 MG TABLET 10 MG PO ×2 (07:39→18:50)
[2024-08-07] MEDS: Famotidine 20 MG TABLET PO ×2 (07:39→21:13)
[2024-08-07 07:54] LABS: MANUAL DIFF FLAG NO
[2024-08-07 07:59] LABS: Basophils Percent Auto 0.1 % (0-2); Eosinophils Percent Auto 0.3 % (0-4); Hematocrit 42.3 % (42.0-52.0); Hemoglobin 14.2 g/dl (14.0-18.0); Imm Gran Abs Auto 0.06 X10*3/uL (0.00-0.03); Imm Gran Pct Auto 0.4 % (0.0-0.4); Lymphocytes Absolute Auto 1.1 X10*3/uL (1.2-4.9); Mean Corpuscular HGB Conc 33.6 g/dl (31.0-36.0); Mean Corpuscular Hemoglobin 29.8 pg (27.0-33.0); Mean Corpuscular Volume 88.7 fL (80.0-98.0); Mean Platelet Volume 9.4 fL (9.4-12.4); Monocytes Absolute Auto 1.2 X10*3/uL (0.1-1.2); Monocytes Percent Auto 8.5 % (2-11); Neutrophils Absolute Auto 11.5 x10*3/uL (2.0-8.3); Neutrophils Percent Auto 82.7 % (45-73); Platelet Count 304 X10*3/uL (160-400); Red Blood Count 4.77 X10*6/uL (4.60-5.80); Red Cell Distribution Width 12.7 % (11.0-16.0); White Blood Count 13.9 X10*3/uL (4.8-10.8)
[2024-08-07 08:25] LABS: Anion Gap 13 (12-20); Blood Urea Nitrogen 7 mg/dL (9-16); Calcium 9.9 mg/dL (8.4-10.2); Carbon Dioxide 24 mmol/L (22-29); Chloride 102 mmol/L (96-108); Creatinine Clr Calc Pharmacy 170.3; Estimated Glomerular Filt Rate > 60; Glucose Fasting 106 mg/dL (60-99); Potassium 4.2 mmol/L (3.3-5.1); Sodium 135 mmol/L (135-145)
--- NOTE | 2024-08-07 09:34 | P.PNGS_ITS ---
Subjective Subjective Date of Service: 08/07/24 Interval history: s/p transverse colon resection yesterday c/o pain denies flatus no vomitting reported Physical Exam 2 Vital Signs: Vital Signs: Last Vital Signs Temp 98.1 F 08/07/24 07:06 Pulse 59 08/07/24 07:06 Resp 18 08/07/24 07:06 BP 150/80 H 08/07/24 07:06 Pulse Ox 91 L 08/07/24 07:06 O2 Del Method Nasal Cannula 08/07/24 07:06 O2 Flow Rate 1 08/07/24 07:06 BMI result Body Mass Index 36.3 Const: Other: c/o pain General: no acute distress Resp: Effort & Inspection: normal respiratory effort Cardio: Rate: regular rate GI: Other: tender on incision, dressings dry Palpation (GI): Soft to palpation and not firm Objective Data Active Medications Benzonatate (Benzonatate 100 Mg Capsule) 100 mg PO TID PRN PRN Reason: Cough Calcium Carbonate (Calcium Carbonate 750 Mg Tab.Chew) 750 mg PO Q4H PRN PRN Reason: Heartburn Last Admin: 08/07/24 07:38 Dose: 750 mg Documented By: SRAVANTHI Famotidine (Famotidine 20 Mg Tablet) 20 mg PO BID [facility] Last Admin: 08/07/24 07:39 Dose: 20 mg Documented By: SRAVANTHI Hydromorphone HCl (Hydromorphone Hcl 0.5 Mg/0.5 Ml Syringe) 1 mg IVPUSH Q4H PRN; Protocol PRN Reason: Pain, Severe (Pain Scale 7-10) Last Admin: 08/07/24 03:13 Dose: 1 mg Documented By: JEREMIAS Lactated Ringer's (Lr) 1,000 mls @ 80 mls/hr IVCONT .[id number] [facility] Last Admin: 08/07/24 05:26 Dose: 80 mls/hr Documented By: JEREMIAS Acetaminophen (Ofirmev) 1,000 mg in 100 mls @ 400 mls/hr IV Q6H [facility] Last Infusion: 08/07/24 06:43 Dose: Infused Documented By: JEREMIAS Magnesium Hydroxide (Milk Of Magnesia 30 Ml Oral.Susp) 30 ml PO DAILY PRN PRN Reason: Constipation Melatonin (Melatonin 3 Mg Tablet) 6 mg PO BEDTIME PRN PRN Reason: Insomnia Neomycin/Polymyxin/Hydrocortisone (Neomycin/Polymyxin/Hc Otic Sada 10 Ml Drpbtl) 3 drop EAR-RIGHT QID [facility] Last Admin: 08/07/24 09:32 Dose: Not Given Documented By: SRAVANTHI Non-Admin Reason: Patient Refused Ondansetron HCl (Ondansetron Hcl 4 Mg/2 Ml Vial) 4 mg IVPUSH Q8H PRN PRN Reason: Nausea and Vomiting Last Admin: 08/07/24 03:13 Dose: 4 mg Documented By: CASTILKevin Oxycodone HCl (Oxycodone Hcl Immed Release 5 Mg Tablet) 10 mg PO Q4H PRN PRN Reason: Pain, Moderate(Pain Scale 4-6) Last Admin: 08/07/24 07:39 Dose: 10 mg Documented By: SRAVANTHI Sodium Chloride (0.9 % Sodium Chloride Flush 3 Ml Syringe) 3 ml IVFLUSH QSHIFT [facility] Last Admin: 08/07/24 07:50 Dose: Not Given Documented By: SRAVANTHI Non-Admin Reason: IV Running Labs 08/07/24 07:39 08/07/24 07:39 Labs: Laboratory Results - last 24 hr 08/07/24 07:39 MCV 88.7 MCH 29.8 MCHC 33.6 RDW 12.7 Plt Count 304 MPV 9.4 Immature Gran % (Auto) 0.4 Neut % (Auto) 82.7 H Lymph % (Auto) 8.0 L [place] % (Auto) 8.5 Eos % (Auto) 0.3 Baso % (Auto) 0.1 Lymph # (Auto) 1.1 L [place] # (Auto) 1.2 Eos # (Auto) 0.0 Baso # (Auto) 0.0 Abs Immat Gran (auto) 0.06 H Absolute Neuts (auto) 11.5 H Absolute Nucleated RBC 0.000 Nucleated RBC % (auto) 0.0 Anion Gap 13 Estim Creat Clear Calc 170.3 Estimated GFR > 60 Fasting Glucose 106 H Calcium 9.9 Procedures Date of Service Date of Service: 08/07/24 Progress Note: A&P Assessment and plan (1) Colonic mass: Status: Acute Assessment and Plan: s/p resection, transverse has pain issues keep on clears await return of GI function encouraged ambulation incentive spirometry pain mgt labs ok Time Spent With Patient Time: Total time managing care of this patient today ____ minutes. Quality Stroke Does the patient have a stroke diagnosis?: No VTE Prior VTE?: No VTE Risk Level:: Medical - moderate - high VTE Device Contraindication: N/A - Device Ordered VTE Drug Contraindication: Treatment Not Indicated
--- NOTE | 2024-08-07 10:43 | P.PNIM_ITS ---
Subjective Subjective Date of Service: 08/07/24 Interval History: colon mass Review of Systems s/p surgery day1 seems somewhat bloated no bm or passing gases yet Physical Exam 2 Vital Signs: Vital Signs: Last Vital Signs Temp 98.1 F 08/07/24 07:06 Pulse 59 08/07/24 07:06 Resp 18 08/07/24 07:06 BP 150/80 H 08/07/24 07:06 Pulse Ox 91 L 08/07/24 07:06 O2 Del Method Nasal Cannula 08/07/24 07:06 O2 Flow Rate 1 08/07/24 07:06 BMI result Body Mass Index 36.3 General: AOx3 Resp: CTA bilaterally CVS: S1, S2, RRR GI: +BS, no distention, mild dicomfort. ,suregrry site - seems wrapped ,clean, has soarness at incision area. Skin: Warm, dry Neuro: Cranial nerves II-XII grossly intact bilaterally. Motor grossly intact bilaterally Extremities: No edema Psych: Appropriate affect Objective Data Active Medications Benzonatate (Benzonatate 100 Mg Capsule) 100 mg PO TID PRN PRN Reason: Cough Calcium Carbonate (Calcium Carbonate 750 Mg Tab.Chew) 750 mg PO Q4H PRN PRN Reason: Heartburn Last Admin: 08/07/24 07:38 Dose: 750 mg Documented By: SRAVANTHI Famotidine (Famotidine 20 Mg Tablet) 20 mg PO BID [facility] Last Admin: 08/07/24 07:39 Dose: 20 mg Documented By: SRAVANTHI Hydromorphone HCl (Hydromorphone Hcl 0.5 Mg/0.5 Ml Syringe) 1 mg IVPUSH Q4H PRN; Protocol PRN Reason: Pain, Severe (Pain Scale 7-10) Last Admin: 08/07/24 03:13 Dose: 1 mg Documented By: JEREMIAS Lactated Ringer's (Lr) 1,000 mls @ 80 mls/hr IVCONT .[id number] [facility] Last Admin: 08/07/24 05:26 Dose: 80 mls/hr Documented By: JEREMIAS Acetaminophen (Ofirmev) 1,000 mg in 100 mls @ 400 mls/hr IV Q6H [facility] Last Infusion: 08/07/24 06:43 Dose: Infused Documented By: HO.CASTILM Magnesium Hydroxide (Milk Of Magnesia 30 Ml Oral.Susp) 30 ml PO DAILY PRN PRN Reason: Constipation Melatonin (Melatonin 3 Mg Tablet) 6 mg PO BEDTIME PRN PRN Reason: Insomnia Neomycin/Polymyxin/Hydrocortisone (Neomycin/Polymyxin/Hc Otic Sada 10 Ml Drpbtl) 3 drop EAR-RIGHT QID [facility] Last Admin: 08/07/24 09:32 Dose: Not Given Documented By: SRAVANTHI Non-Admin Reason: Patient Refused Ondansetron HCl (Ondansetron Hcl 4 Mg/2 Ml Vial) 4 mg IVPUSH Q8H PRN PRN Reason: Nausea and Vomiting Last Admin: 08/07/24 03:13 Dose: 4 mg Documented By: CASTILKevin Oxycodone HCl (Oxycodone Hcl Immed Release 5 Mg Tablet) 10 mg PO Q4H PRN PRN Reason: Pain, Moderate(Pain Scale 4-6) Last Admin: 08/07/24 07:39 Dose: 10 mg Documented By: SRAVANTHI Sodium Chloride (0.9 % Sodium Chloride Flush 3 Ml Syringe) [facility] Last Admin: 08/07/24 07:50 Dose: Not Given Documented By: SRAVANTHI Non-Admin Reason: IV Running Labs 08/07/24 07:39 08/07/24 07:39 Labs: Laboratory Results - last 24 hr 08/07/24 07:39 MCV 88.7 MCH 29.8 MCHC 33.6 RDW 12.7 Plt Count 304 MPV 9.4 Immature Gran % (Auto) 0.4 Neut % (Auto) 82.7 H Lymph % (Auto) 8.0 L [place] % (Auto) 8.5 Eos % (Auto) 0.3 Baso % (Auto) 0.1 Lymph # (Auto) 1.1 L [place] # (Auto) 1.2 Eos # (Auto) 0.0 Baso # (Auto) 0.0 Abs Immat Gran (auto) 0.06 H Absolute Neuts (auto) 11.5 H Absolute Nucleated RBC 0.000 Nucleated RBC % (auto) 0.0 Anion Gap 13 Estim Creat Clear Calc 170.3 Estimated GFR > 60 Fasting Glucose 106 H Calcium 9.9 Assessment and Plan (1) Colonic mass: Status: Acute Assessment and Plan: 58-year-old male with a PMH significant for?mild intermittent asthma, congenital deafness, and hx of rectal prolapse who presents to the ED with?severe abdominal pain x1 day. Pt will be admitted to the hospital for treatment and further evaluation of intractable abdominal pain likely secondary to colonic mass concerning for malignancy. Colonic mass CT of abd/pelvis showing 6 cm distal transverse colon mass concerning for malignancy seen by GI--colonoscopy shows colon apple core mass consistent with carcinoma, biopsied. s/p transverse colon resection on 08/06/24. plan: Analgesics for pain management general surgery consult-clear liquid diet, pain control, antiemetic p.r.n., await for return of bowel function Mild intermittent asthma Not in acute exacerbation Continue home inhalers Full Code DVT Prophylaxis: Pneumatic compression due to impending procedure . ongoing need for hospitalization for treatment of? intractable abdominal pain found to colon mass -s/p s/p transverse colon resection on 08/06/24--clear liquid diet, pain control, antiemetic p.r.n., await for return of bowel function. Quality Stroke Does the patient have a stroke diagnosis?: No VTE Prior VTE?: No VTE Risk Level:: Medical - moderate - high VTE Device Contraindication: N/A - Device Ordered VTE Drug Contraindication: Treatment Not Indicated
[2024-08-07] MEDS: Simethicone 80 MG TAB.CHEW PO (12:24)
[2024-08-07] MEDS: 0.9 % Sodium Chloride Flush 3 ML SYRINGE IVFLUSH (15:25)
[2024-08-07] MEDS: NeoMYCIN/Polymyxin/HC Otic Sus 10 ML DRPBTL 3 DROP EAR-RIGHT (21:13)
[2024-08-08] VITALS (7 sets, daily range): BP systolic 109–167; BP diastolic 66–86; PULSE 59–96; RESP 16–18; TEMP 36.1–37.6; O2SAT 90–96
[2024-08-08] MEDS: Acetaminophen 1,000 MG/100 ML PIGGYBACK 400 MG IV ×4 (01:40→18:23)
[2024-08-08] MEDS: HYDROmorphone HCl 0.5 MG/0.5 ML SYRINGE 1 MG IVPUSH ×3 (03:40→20:26)
[2024-08-08] MEDS: Lactated Ringers 1,000 ML 80 ML IVCONT ×2 (06:23→18:24)
[2024-08-08] MEDS: Famotidine 20 MG TABLET PO ×2 (08:45→20:26)
[2024-08-08 08:50] LABS: Hematocrit 44.9 % (42.0-52.0); Hemoglobin 14.8 g/dl (14.0-18.0); Mean Corpuscular Hemoglobin 29.6 pg (27.0-33.0); Mean Corpuscular Volume 89.8 fL (80.0-98.0); Mean Platelet Volume 9.5 fL (9.4-12.4); Platelet Count 318 X10*3/uL (160-400); Red Cell Distribution Width 12.8 % (11.0-16.0); White Blood Count 14.2 X10*3/uL (4.8-10.8)
[2024-08-08 09:06] LABS: Anion Gap 14 (12-20); Blood Urea Nitrogen 6 mg/dL (9-16); Calcium 10.1 mg/dL (8.4-10.2); Carbon Dioxide 27 mmol/L (22-29); Chloride 99 mmol/L (96-108); Creatinine Clr Calc Pharmacy 175.6; Estimated Glomerular Filt Rate > 60; Glucose Random 102 mg/dL (60-115); Sodium 136 mmol/L (135-145)
--- NOTE | 2024-08-08 10:07 | P.PNGS_ITS ---
Subjective Subjective Date of Service: 08/08/24 Interval history: Still ?hurting? but feels better today He was able to ambulate well last night Denies flatus Tolerating clear liquids Physical Exam 2 Vital Signs: Vital Signs: Last Vital Signs Temp 97.0 F 08/08/24 07:33 Pulse 62 08/08/24 07:33 Resp 16 08/08/24 07:33 BP 139/83 08/08/24 07:33 Pulse Ox 96 08/08/24 07:33 O2 Del Method Nasal Cannula 08/08/24 07:33 O2 Flow Rate 2 08/08/24 07:33 BMI result Body Mass Index 36.3 Const: Other: Sitting on recliner General: comfortable Resp: Effort & Inspection: normal respiratory effort Cardio: Rate: regular rate GI: Other: Incision clean and dry, dressings removed Palpation (GI): Soft to palpation, not firm and no guarding Objective Data Active Medications Benzonatate (Benzonatate 100 Mg Capsule) 100 mg PO TID PRN PRN Reason: Cough Calcium Carbonate (Calcium Carbonate 750 Mg Tab.Chew) 750 mg PO Q4H PRN PRN Reason: Heartburn Last Admin: 08/07/24 15:21 Dose: 750 mg Documented By: SRAVANTHI Famotidine (Famotidine 20 Mg Tablet) 20 mg PO BID [facility] Last Admin: 08/08/24 08:45 Dose: 20 mg Documented By: BRENDA Hydromorphone HCl (Hydromorphone Hcl 0.5 Mg/0.5 Ml Syringe) 1 mg IVPUSH Q4H PRN; Protocol PRN Reason: Pain, Severe (Pain Scale 7-10) Last Admin: 08/08/24 08:52 Dose: 1 mg Documented By: BRENDA Acetaminophen (Ofirmev) 1,000 mg in 100 mls @ 400 mls/hr IV Q6H [facility] Last Infusion: 08/08/24 06:36 Dose: Infused Documented By: CYNTHIA Lactated Ringer's (Lr) 1,000 mls @ 80 mls/hr IVCONT .[id number] [facility] Last Admin: 08/08/24 06:23 Dose: 80 mls/hr Documented By: CYNTHIA Magnesium Hydroxide (Milk Of Magnesia 30 Ml Oral.Susp) 30 ml PO DAILY PRN PRN Reason: Constipation Melatonin (Melatonin 3 Mg Tablet) 6 mg PO BEDTIME PRN PRN Reason: Insomnia Neomycin/Polymyxin/Hydrocortisone (Neomycin/Polymyxin/Hc Otic Sada 10 Ml Drpbtl) 3 drop EAR-RIGHT QID [facility] Last Admin: 08/08/24 08:47 Dose: Not Given Documented By: BRENDA Non-Admin Reason: Patient Refused Ondansetron HCl (Ondansetron Hcl 4 Mg/2 Ml Vial) 4 mg IVPUSH Q8H PRN PRN Reason: Nausea and Vomiting Last Admin: 08/07/24 03:13 Dose: 4 mg Documented By: CASTILKevin Oxycodone HCl (Oxycodone Hcl Immed Release 5 Mg Tablet) 10 mg PO Q4H PRN PRN Reason: Pain, Moderate(Pain Scale 4-6) Last Admin: 08/07/24 18:50 Dose: 10 mg Documented By: SRAVANTHI Sodium Chloride (0.9 % Sodium Chloride Flush 3 Ml Syringe) [facility] Last Admin: 08/08/24 08:45 Dose: Not Given Documented By: BRENDA Non-Admin Reason: IV Running Labs 08/08/24 08:40 08/08/24 08:40 Labs: Laboratory Results - last 24 hr 08/08/24 08:40 MCV 89.8 MCH 29.6 MCHC 33.0 RDW 12.8 Plt Count 318 MPV 9.5 Absolute Nucleated RBC 0.000 Nucleated RBC % (auto) 0.0 Anion Gap 14 Estim Creat Clear Calc 175.6 Estimated GFR > 60 Random Glucose 102 Calcium 10.1 Procedures Date of Service Date of Service: 08/08/24 Progress Note: A&P Assessment and plan (1) Colonic mass: Status: Acute Assessment and Plan: Status post segmental resection , transverse colon Looks well today Encouraged to get out of bed Await return of GI functions Keep on clear liquids for now Pain Management Time Spent With Patient Time: Total time managing care of this patient today ____ minutes. Quality Stroke Does the patient have a stroke diagnosis?: No VTE Prior VTE?: No VTE Risk Level:: Medical - moderate - high VTE Device Contraindication: N/A - Device Ordered VTE Drug Contraindication: Treatment Not Indicated
[2024-08-08] MEDS: Calcium Carbonate 750 MG TAB.CHEW PO ×2 (12:49→18:12)
[2024-08-08] MEDS: Benzonatate 100 MG CAPSULE PO (12:49)
--- NOTE | 2024-08-08 12:49 | HO.PM.IMPN ---
Subjective Subjective Date of Service: 08/08/24 Interval History: colon cancer Review of Systems s/p surgery day2 seems somewhat bloated no bm or passing gases yet Physical Exam Vital Signs: Vital Signs: Last Vital Signs Temp 97.6 F 08/08/24 11:41 Pulse 80 08/08/24 11:41 Resp 18 08/08/24 11:41 BP 109/66 08/08/24 11:41 Pulse Ox 96 08/08/24 11:41 O2 Del Method Nasal Cannula 08/08/24 07:33 O2 Flow Rate 2 08/08/24 07:33 BMI result Body Mass Index 36.3 General: AOx3 Resp: CTA bilaterally CVS: S1, S2, RRR GI: +BS, no distention, mild dicomfort. ,suregrry site - seems wrapped ,clean, has soarness at incision area. Skin: Warm, dry Neuro: Cranial nerves II-XII grossly intact bilaterally. Motor grossly intact bilaterally Extremities: No edema Psych: Appropriate affect Objective Data Active Medications Benzonatate (Benzonatate 100 Mg Capsule) 100 mg PO TID PRN PRN Reason: Cough Calcium Carbonate (Calcium Carbonate 750 Mg Tab.Chew) 750 mg PO Q4H PRN PRN Reason: Heartburn Last Admin: 08/07/24 15:21 Dose: 750 mg Documented By: SRAVANTHI Famotidine (Famotidine 20 Mg Tablet) 20 mg PO BID [facility] Last Admin: 08/08/24 08:45 Dose: 20 mg Documented By: BRENDA Hydromorphone HCl (Hydromorphone Hcl 0.5 Mg/0.5 Ml Syringe) 1 mg IVPUSH Q4H PRN; Protocol PRN Reason: Pain, Severe (Pain Scale 7-10) Last Admin: 08/08/24 08:52 Dose: 1 mg Documented By: BRENDA Acetaminophen (Ofirmev) 1,000 mg in 100 mls @ 400 mls/hr IV Q6H [facility] Last Infusion: 08/08/24 06:36 Dose: Infused Documented By: CYNTHIA Lactated Ringer's (Lr) 1,000 mls @ 80 mls/hr IVCONT .[id number] [facility] Last Admin: 08/08/24 06:23 Dose: 80 mls/hr Documented By: CYNTHIA Magnesium Hydroxide (Milk Of Magnesia 30 Ml Oral.Susp) 30 ml PO DAILY PRN PRN Reason: Constipation Melatonin (Melatonin 3 Mg Tablet) 6 mg PO BEDTIME PRN PRN Reason: Insomnia Neomycin/Polymyxin/Hydrocortisone (Neomycin/Polymyxin/Hc Otic Sada 10 Ml Drpbtl) 3 drop EAR-RIGHT QID [facility] Last Admin: 08/08/24 08:47 Dose: Not Given Documented By: BRENDA Non-Admin Reason: Patient Refused Ondansetron HCl (Ondansetron Hcl 4 Mg/2 Ml Vial) 4 mg IVPUSH Q8H PRN PRN Reason: Nausea and Vomiting Last Admin: 08/07/24 03:13 Dose: 4 mg Documented By: CASTILKevin Oxycodone HCl (Oxycodone Hcl Immed Release 5 Mg Tablet) 10 mg PO Q4H PRN PRN Reason: Pain, Moderate(Pain Scale 4-6) Last Admin: 08/07/24 18:50 Dose: 10 mg Documented By: SRAVANTHI Sodium Chloride (0.9 % Sodium Chloride Flush 3 Ml Syringe) 3 [facility] [place] Last Admin: 08/08/24 08:45 Dose: Not Given Documented By: BRENDA Non-Admin Reason: IV Running Labs 08/08/24 08:40 08/08/24 08:40 Labs: Laboratory Results - last 24 hr 08/08/24 08:40 MCV 89.8 MCH 29.6 MCHC 33.0 RDW 12.8 Plt Count 318 MPV 9.5 Absolute Nucleated RBC 0.000 Nucleated RBC % (auto) 0.0 Anion Gap 14 Estim Creat Clear Calc 175.6 Estimated GFR > 60 Random Glucose 102 Calcium 10.1 Assessment and Plan (1) Colonic mass: Status: Acute Assessment and Plan: 58-year-old male with a PMH significant for?mild intermittent asthma, congenital deafness, and hx of rectal prolapse who presents to the ED with?severe abdominal pain x1 day. Pt will be admitted to the hospital for treatment and further evaluation of intractable abdominal pain likely secondary to colonic mass concerning for malignancy. Colonic mass CT of abd/pelvis showing 6 cm distal transverse colon mass concerning for malignancy seen by GI--colonoscopy shows colon apple core mass consistent with carcinoma, biopsied. s/p transverse colon resection on 08/06/24. plan: Analgesics for pain management general surgery consult-clear liquid diet, pain control, antiemetic p.r.n., await for return of bowel function Mild intermittent asthma Not in acute exacerbation Continue home inhalers Full Code DVT Prophylaxis: Pneumatic compression due to impending procedure . ongoing need for hospitalization for treatment of? intractable abdominal pain found to colon mass -s/p s/p transverse colon resection on 08/06/24--clear liquid diet, pain control, antiemetic p.r.n., await for return of bowel function. Quality Stroke Does the patient have a stroke diagnosis?: No VTE Prior VTE?: No VTE Risk Level:: Medical - moderate - high VTE Device Contraindication: N/A - Device Ordered VTE Drug Contraindication: Treatment Not Indicated
[2024-08-08] MEDS: oxyCODONE HCl Immed Release 5 MG TABLET 10 MG PO ×2 (15:33→23:47)
--- NOTE | 2024-08-08 19:56 | HO.POSTANES ---
Post Anesthesia Evaluation Post Anesthesia Evaluation Date of Service: 08/08/24 Vital Signs: Vital Signs Temp Pulse Resp BP Pulse Ox O2 Del Method 08/08/24 15:14 99.6 F 93 18 136/82 90 L Room Air 08/08/24 11:41 97.6 F 80 18 109/66 96 Anesthesia: General Endotracheal-GETA Mental Status: Awake Pain Control: Satisfactory Nausea/Vomiting: None Hydration: Adequate Anesthesia-Related Issues: No Anes. Related Issues
[2024-08-09] VITALS (7 sets, daily range): BP systolic 126–139; BP diastolic 65–89; PULSE 79–114; RESP 16–20; TEMP 36–37.3; O2SAT 92–95
[2024-08-09] MEDS: Acetaminophen 1,000 MG/100 ML PIGGYBACK 400 MG IV ×4 (00:23→18:11)
[2024-08-09] MEDS: HYDROmorphone HCl 0.5 MG/0.5 ML SYRINGE 1 MG IVPUSH (03:04)
[2024-08-09] MEDS: oxyCODONE HCl Immed Release 5 MG TABLET 10 MG PO ×3 (05:49→14:29)
[2024-08-09] MEDS: Lactated Ringers 1,000 ML 80 ML IVCONT ×2 (06:12→18:45)
[2024-08-09 08:09] LABS: Hematocrit 47.8 % (42.0-52.0); Hemoglobin 15.9 g/dl (14.0-18.0); Mean Corpuscular HGB Conc 33.3 g/dl (31.0-36.0); Mean Corpuscular Hemoglobin 29.7 pg (27.0-33.0); Mean Corpuscular Volume 89.3 fL (80.0-98.0); Mean Platelet Volume 9.5 fL (9.4-12.4); Platelet Count 382 X10*3/uL (160-400); Red Blood Count 5.35 X10*6/uL (4.60-5.80); White Blood Count 16.7 X10*3/uL (4.8-10.8)
[2024-08-09] MEDS: Famotidine 20 MG TABLET PO ×2 (08:11→20:25)
--- NOTE | 2024-08-09 08:40 | P.PNGS_ITS ---
Subjective Subjective Date of Service: 08/09/24 Interval history: Has been tolerating clear liquids without nausea but reports significant heartburn. OOB and ambulated once over the weekend. C/o too much pain. Has been taking dilaudid around the clock. Passed some flatus last night. Physical Exam 2 Vital Signs: Vital Signs: Last Vital Signs Temp 96.8 F 08/09/24 07:59 Pulse 83 08/09/24 07:59 Resp 16 08/09/24 07:59 BP 131/81 08/09/24 07:59 Pulse Ox 94 08/09/24 07:59 O2 Del Method Nasal Cannula 08/09/24 07:59 O2 Flow Rate 1 08/09/24 07:59 BMI result Body Mass Index 36.3 Const: General: no acute distress and alert Orientation/consciousness: p atient oriented x3 Resp: Effort & Inspection: normal respiratory effort GI: Inspection: Yes distended and Yes incision (clean) Palpation (GI): Soft to palpation, Tenderness to palpation present (GI) and no guarding P ercussion: Yes tympanic to percussion Skin: General skin exam: no rashes or lesions noted Neuro: General: patient oriented x3 and moves all extremities Objective Data Active Medications Benzonatate (Benzonatate 100 Mg Capsule) 100 mg PO TID PRN PRN Reason: Cough Last Admin: 08/08/24 12:49 Dose: 100 mg Documented By: SRAVANTHI Calcium Carbonate (Calcium Carbonate 750 Mg Tab.Chew) 750 mg PO Q4H PRN PRN Reason: Heartburn Last Admin: 08/08/24 18:12 Dose: 750 mg Documented By: RUFUS Famotidine (Famotidine 20 Mg Tablet) 20 mg PO BID [facility] Last Admin: 08/09/24 08:11 Dose: 20 mg Documented By: SHIRA Hydromorphone HCl (Hydromorphone Hcl 0.5 Mg/0.5 Ml Syringe) 1 mg IVPUSH Q4H PRN; Protocol PRN Reason: Pain, Severe (Pain Scale 7-10) Last Admin: 08/09/24 03:04 Dose: 1 mg Documented By: DERIC Acetaminophen (Ofirmev) 1,000 mg in 100 mls @ 400 mls/hr IV Q6H [facility] Last Infusion: 08/09/24 06:45 Dose: Infused Documented By: DERIC Lactated Ringer's (Lr) 1,000 mls @ 80 mls/hr IVCONT .[id number] [facility] Last Admin: 08/09/24 06:12 Dose: 80 mls/hr Documented By: DERIC Magnesium Hydroxide (Milk Of Magnesia 30 Ml Oral.Susp) 30 ml PO DAILY PRN PRN Reason: Constipation Melatonin (Melatonin 3 Mg Tablet) 6 mg PO BEDTIME PRN PRN Reason: Insomnia Neomycin/Polymyxin/Hydrocortisone (Neomycin/Polymyxin/Hc Otic Sada 10 Ml Drpbtl) 3 drop EAR-RIGHT QID [facility] Last Admin: 08/09/24 08:13 Dose: Not Given Documented By: SHIRA Non-Admin Reason: Patient Refused Ondansetron HCl (Ondansetron Hcl 4 Mg/2 Ml Vial) 4 mg IVPUSH Q8H PRN PRN Reason: Nausea and Vomiting Last Admin: 08/07/24 03:13 Dose: 4 mg Documented By: JEREMIAS Oxycodone HCl (Oxycodone Hcl Immed Release 5 Mg Tablet) 10 mg PO Q4H PRN PRN Reason: Pain, Moderate(Pain Scale 4-6) Last Admin: 08/09/24 05:49 Dose: 10 mg Documented By: DERIC Sodium Chloride (0.9 % Sodium Chloride Flush 3 Ml Syringe) 3 ml IVFLUSH QSHIFT [facility] Last Admin: 08/09/24 07:01 Dose: Not Given Documented By: SHIRA Non-Admin Reason: IV Running Labs 08/09/24 07:29 08/08/24 08:40 Labs: Laboratory Results - last 24 hr 08/08/24 08/09/24 08:40 07:29 MCV 89.8 89.3 MCH 29.6 29.7 MCHC 33.0 33.3 RDW 12.8 13.0 Plt Count 318 382 MPV 9.5 9.5 Absolute Nucleated RBC 0.000 0.000 Nucleated RBC % (auto) 0.0 0.0 Anion Gap 14 Estim Creat Clear Calc 175.6 Estimated GFR > 60 Random Glucose 102 Calcium 10.1 Procedures Date of Service Date of Service: 08/09/24 Progress Note: A&P Assessment and plan (1) S/P colon resection: Status: Acute Plan POD #3 s/p exploratory laparotomy, transverse colectomy, takedown splenic flexure primary, colo colo anastomosis, partial omentectomy for obstructing distal tranverse colon lesion. He has some evidence of GI function but significantly distended, on ATC narcotics and activity has been minimal. Will obtain KUB to assess stomach for ?distention and possible benefit from NGT although no significant nausea. At this point we are awaiting return of GI function. Strongly encouraged OOB/ambulation of halls and increasing activity to promote GI function, chewing gum, reducing narcotic load. Patient will try today. Discussed with RN and hospitalist service. Time Spent With Patient Time: Total time managing care of this patient today ____ minutes. Quality Stroke Does the patient have a stroke diagnosis?: No VTE Prior VTE?: No VTE Risk Level:: Medical - moderate - high VTE Device Contraindication: N/A - Device Ordered VTE Drug Contraindication: Treatment Not Indicated
[2024-08-09] MEDS: ondansetron HCL 4 MG/2 ML VIAL IVPUSH (10:26)
[2024-08-09] MEDS: Calcium Carbonate 750 MG TAB.CHEW PO ×2 (10:27→14:29)
--- NOTE | 2024-08-09 15:26 | MHC.CM.PN ---
per rounds pt not medically ready for dc dc plan remains home
[2024-08-09] MEDS: Albuterol/Iprat 2.5/0.5MG 3 ML AMPUL.NEB INHALE ×2 (16:03→19:32)
[2024-08-10] VITALS (10 sets, daily range): BP systolic 128–154; BP diastolic 76–94; PULSE 77–106; RESP 12–20; TEMP 36–37.2; O2SAT 90–96
[2024-08-10] MEDS: Acetaminophen 1,000 MG/100 ML PIGGYBACK 400 MG IV ×5 (00:23→23:32)
[2024-08-10] MEDS: oxyCODONE HCl Immed Release 5 MG TABLET 10 MG PO ×2 (04:13→16:15)
[2024-08-10] MEDS: Lactated Ringers 1,000 ML 80 ML IVCONT ×2 (06:15→20:10)
[2024-08-10 06:23] LABS: Anion Gap 19 (12-20); Blood Urea Nitrogen 13 mg/dL (9-16); Calcium 10.8 mg/dL (8.4-10.2); Carbon Dioxide 24 mmol/L (22-29); Chloride 96 mmol/L (96-108); Creatinine Clr Calc Pharmacy 160.7; Estimated Glomerular Filt Rate > 60; Glucose Random 117 mg/dL (60-115); Potassium 3.9 mmol/L (3.3-5.1); Sodium 135 mmol/L (135-145)
[2024-08-10] MEDS: Famotidine 20 MG TABLET PO ×2 (08:07→20:16)
[2024-08-10] MEDS: Albuterol/Iprat 2.5/0.5MG 3 ML AMPUL.NEB INHALE ×4 (08:18→19:53)
[2024-08-10 09:01] LABS: Anion Gap 16 (12-20); Blood Urea Nitrogen 12 mg/dL (9-16); Calcium 10.9 mg/dL (8.4-10.2); Carbon Dioxide 29 mmol/L (22-29); Chloride 94 mmol/L (96-108); Creatinine Clr Calc Pharmacy 148.2; Estimated Glomerular Filt Rate > 60; Glucose Random 113 mg/dL (60-115); Potassium 4.1 mmol/L (3.3-5.1); Sodium 135 mmol/L (135-145)
--- NOTE | 2024-08-10 09:03 | P.PNGS_ITS ---
Subjective Subjective Date of Service: 08/10/24 Interval history: KUB was obtained yesterday which showed very distended stomach, dilated SB loops. NGT was ordered but unfortunately was not inserted. He intermittently feels improved but continues to c/o severe heartburn. Tolerating water. Did pass some flatus last night. Has been OOB and ambulated halls yesterday. Using narcotics less. Physical Exam 2 Vital Signs: Vital Signs: Last Vital Signs Temp 97.1 F 08/10/24 07:15 Pulse 83 08/10/24 08:20 Resp 18 08/10/24 08:20 BP 137/81 08/10/24 07:15 Pulse Ox 95 08/10/24 07:15 O2 Del Method Nasal Cannula 08/10/24 07:15 O2 Flow Rate 2 08/10/24 07:15 BMI result Body Mass Index 36.3 Const: General: comfortable, no acute distress and alert O rientation/consciousness: patient oriented x3 Resp: Effort & Inspection: no respiratory distress GI: Inspection: Yes distended and Yes incision (clean) Palpation (GI): Soft to palpation, Tenderness to palpation present (GI) and no guarding P ercussion: Yes normal to percussion Skin: General skin exam: no rashes or lesions noted Neuro: General: patient oriented x3 and moves all extremities Objective Data Active Medications Albuterol/Ipratropium (Albuterol/Iprat 2.5/0.5mg 3 Ml Ampul.Neb) 3 ml INHALE RQ4H WHILE AWAKE [facility] Last Admin: 08/10/24 08:18 Dose: 3 ml Documented By: BRESMARTÍNEZ Benzonatate (Benzonatate 100 Mg Capsule) 100 mg PO TID PRN PRN Reason: Cough Last Admin: 08/08/24 12:49 Dose: 100 mg Documented By: MOHALVINA Calcium Carbonate (Calcium Carbonate 750 Mg Tab.Chew) 750 mg PO Q4H PRN PRN Reason: Heartburn Last Admin: 08/09/24 14:29 Dose: 750 mg Documented By: RON Famotidine (Famotidine 20 Mg Tablet) 20 mg PO BID [facility] Last Admin: 08/10/24 08:07 Dose: 20 mg Documented By: SHIRA Acetaminophen (Ofirmev) 1,000 mg in 100 mls @ 400 mls/hr IV Q6H [facility] Last Infusion: 08/10/24 06:29 Dose: Infused Documented By: DERIC Lactated Ringer's (Lr) 1,000 mls @ 80 mls/hr IVCONT .[id number] [facility] Last Admin: 08/10/24 06:15 Dose: 80 mls/hr Documented By: DERIC Magnesium Hydroxide (Milk Of Magnesia 30 Ml Oral.Susp) 30 ml PO DAILY PRN PRN Reason: Constipation Melatonin (Melatonin 3 Mg Tablet) 6 mg PO BEDTIME PRN PRN Reason: Insomnia Neomycin/Polymyxin/Hydrocortisone (Neomycin/Polymyxin/Hc Otic Sada 10 Ml Drpbtl) 3 drop EAR-RIGHT QID [facility] Last Admin: 08/09/24 20:26 Dose: Not Given Documented By: DERIC Non-Admin Reason: Patient Refused Ondansetron HCl (Ondansetron Hcl 4 Mg/2 Ml Vial) 4 mg IVPUSH Q8H PRN PRN Reason: Nausea and Vomiting Last Admin: 08/09/24 10:26 Dose: 4 mg Documented By: SHIRA Oxycodone HCl (Oxycodone Hcl Immed Release 5 Mg Tablet) 10 mg PO Q8H PRN PRN Reason: Pain, Moderate(Pain Scale 4-6) Sodium Chloride (0.9 % Sodium Chloride Flush 3 Ml Syringe) 3 ml IVFLUSH QSHIFT [facility] Last Admin: 08/10/24 08:08 Dose: Not Given Documented By: SHIRA Non-Admin Reason: IV Running Labs 08/09/24 07:29 08/10/24 07:59 Labs: Laboratory Results - last 24 hr 08/10/24 08/10/24 05:16 07:59 Anion Gap 19 16 Estim Creat Clear Calc 160.7 148.2 Estimated GFR > 60 > 60 Random Glucose 117 H 113 Calcium 10.8 H D 10.9 H Procedures Date of Service Date of Service: 08/10/24 Progress Note: A&P Assessment and plan (1) S/P colon resection: Status: Acute Plan POD #3 s/p exploratory laparotomy, transverse colectomy, takedown splenic flexure primary, colo colo anastomosis, partial omentectomy for obstructing distal tranverse colon lesion. Stomach distended on imaging and he would have benefited from NGT insertion yesterday as this is likely exacerbating his heartburn but unfortunately this was not performed. Since he has begun to pass flatus and has air in his colon on imaging will hold off unless he develops nausea/vomiting. Cont clear liquids as tolerated. Cont OOB/ambulation and IS use. Await BM. Repeat CBC. Time Spent With Patient Time: Total time managing care of this patient today ____ minutes. Quality Stroke Does the patient have a stroke diagnosis?: No VTE Prior VTE?: No VTE Risk Level:: Medical - moderate - high VTE Device Contraindication: N/A - Device Ordered VTE Drug Contraindication: Treatment Not Indicated
--- NOTE | 2024-08-10 11:39 | P.PNIM_ITS ---
Subjective Subjective Date of Service: 08/10/24 Interval History: Ielus Review of Systems c/o heartburn no vomiting ,has some nausea passing some gases Physical Exam 2 Vital Signs: Vital Signs: Last Vital Signs Temp 97.1 F 08/10/24 07:15 Pulse 83 08/10/24 08:20 Resp 18 08/10/24 08:20 BP 137/81 08/10/24 07:15 Pulse Ox 95 08/10/24 07:15 O2 Del Method Nasal Cannula 08/10/24 07:15 O2 Flow Rate 2 08/10/24 07:15 BMI result Body Mass Index 36.3 General: AOx3 Resp: CTA bilaterally CVS: S1, S2, RRR GI: +BS, no distention, dicomfort slightly better than yesterday ,surgery site - seems wrapped ,clean, has soarness at incision area. Skin: Warm, dry Neuro: Cranial nerves II-XII grossly intact bilaterally. Motor grossly intact bilaterally Extremities: No edema Psych: Appropriate affect Objective Data Active Medications Albuterol/Ipratropium (Albuterol/Iprat 2.5/0.5mg 3 Ml Ampul.Neb) 3 ml INHALE RQ4H WHILE AWAKE [facility] Last Admin: 08/10/24 08:18 Dose: 3 ml Documented By: BRESNE Benzonatate (Benzonatate 100 Mg Capsule) 100 mg PO TID PRN PRN Reason: Cough Last Admin: 08/08/24 12:49 Dose: 100 mg Documented By: SRAVANTHI Calcium Carbonate (Calcium Carbonate 750 Mg Tab.Chew) 750 mg PO Q4H PRN PRN Reason: Heartburn Last Admin: 08/09/24 14:29 Dose: 750 mg Documented By: RON Famotidine (Famotidine 20 Mg Tablet) 20 mg PO BID [facility] Last Admin: 08/10/24 08:07 Dose: 20 mg Documented By: SHIRA Acetaminophen (Ofirmev) 1,000 mg in 100 mls @ 400 mls/hr IV Q6H [facility] Last Infusion: 08/10/24 06:29 Dose: Infused Documented By: TYSHAWNRISKevin Lactated Ringer's (Lr) 1,000 mls @ 80 mls/hr IVCONT .[id number] [facility] Last Admin: 08/10/24 06:15 Dose: 80 mls/hr Documented By: DERIC Magnesium Hydroxide (Milk Of Magnesia 30 Ml Oral.Susp) 30 ml PO DAILY PRN PRN Reason: Constipation Melatonin (Melatonin 3 Mg Tablet) 6 mg PO BEDTIME PRN PRN Reason: Insomnia Neomycin/Polymyxin/Hydrocortisone (Neomycin/Polymyxin/Hc Otic Sada 10 Ml Drpbtl) 3 drop EAR-RIGHT QID [facility] Last Admin: 08/10/24 09:14 Dose: Not Given Documented By: SHIRA Non-Admin Reason: Patient Refused Ondansetron HCl (Ondansetron Hcl 4 Mg/2 Ml Vial) 4 mg IVPUSH Q8H PRN PRN Reason: Nausea and Vomiting Last Admin: 08/09/24 10:26 Dose: 4 mg Documented By: SHIRA Oxycodone HCl (Oxycodone Hcl Immed Release 5 Mg Tablet) 10 mg PO Q8H PRN PRN Reason: Pain, Moderate(Pain Scale 4-6) Sodium Chloride (0.9 % Sodium Chloride Flush 3 Ml Syringe) 3 ml IVFLUSH QSHIFT [facility] Last Admin: 08/10/24 08:08 Dose: Not Given Documented By: SHIRA Non-Admin Reason: IV Running Labs 08/10/24 12:10 08/10/24 07:59 Labs: Laboratory Results - last 24 hr 08/10/24 08/10/24 05:16 07:59 Anion Gap 19 16 Estim Creat Clear Calc 160.7 148.2 Estimated GFR > 60 > 60 Random Glucose 117 H 113 Calcium 10.8 H D 10.9 H Assessment and Plan (1) S/P colon resection: Status: Acute (2) Leucocytosis: Status: Acute Plan 58-year-old male with a PMH significant for?mild intermittent asthma, congenital deafness, and hx of rectal prolapse who presents to the ED with?severe abdominal pain x1 day. Pt will be admitted to the hospital for treatment and further evaluation of intractable abdominal pain likely secondary to colonic mass concerning for malignancy. 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 s/p transverse colon resection on 08/06/24. plan: Analgesics for pain management general surgery consult-clear liquid diet(tolerating some water), pain control, antiemetic p.r.n., await for return of bowel function, added ppi also in addition to famotidine surgery following mild leucocytosis -denies any new symptoms,possible reactive to surgery/cancer patient denies any sob or cough or any urinary symptoms abd pain somewhat improving ,but still has abd distended. mild tachycardia due to pain, no fevers moniter cbc not sepsis at present add ua,cxr ,ct abd to complete workup. Mild intermittent asthma Not in acute exacerbation Continue home inhalers Full Code DVT Prophylaxis: Pneumatic compression due to impending procedure . ongoing need for hospitalization for treatment of?postop Ielus ,leucocytois - s/p s/p transverse colon resection on 08/06/24--clear liquid diet, pain control, antiemetic p.r.n., await for return of bowel function. Quality Stroke Does the patient have a stroke diagnosis?: No VTE Prior VTE?: No VTE Risk Level:: Medical - moderate - high VTE Device Contraindication: N/A - Device Ordered VTE Drug Contraindication: Treatment Not Indicated
[2024-08-10 12:45] LABS: Hematocrit 43.1 % (42.0-52.0); Hemoglobin 14.5 g/dl (14.0-18.0); Mean Corpuscular HGB Conc 33.6 g/dl (31.0-36.0); Mean Corpuscular Hemoglobin 29.5 pg (27.0-33.0); Mean Corpuscular Volume 87.6 fL (80.0-98.0); PLT CLUMP 1; Red Blood Count 4.92 X10*6/uL (4.60-5.80); Red Cell Distribution Width 13.2 % (11.0-16.0)
[2024-08-10 12:46] LABS: White Blood Count 21.2 X10*3/uL (4.8-10.8)
[2024-08-10 13:59] LABS: Platelet Count 293 X10*3/uL (160-400)
[2024-08-10 14:27] LABS: Appearance Urine Clear; Color Urine Dark Yellow; Glucose Urine UA Negative (Negative); Leukocyte Esterase Urine Negative (Negative); Nitrite Urine Negative (Negative); PH 6.5 (5.0-9.0); Specific Gravity - Urine 1.025 (1.005-1.025); UMIC TRIGGER UA YES; Urine Blood Trace (Negative); Urine Ketones 15 mg/dL (Negative); Urine Protein 30 (1+) mg/dL (Neg-Trace)
[2024-08-10 14:30] LABS: Bacteria Urine None Seen (None Seen); Hyaline Casts Urine 0-2 /LPF (0-2); Squamous Epithelial Cell Urine 0-2 /HPF (0-2); WBC Urine 0-5 /HPF (0-5)
[2024-08-10] MEDS: Piperacillin Sodium/Tazobactam 3.375 GM in 0.9 % Sodium Chloride 50 ML IV ×2 (15:06→20:13)
[2024-08-10] MEDS: Furosemide 20 MG/2 ML VIAL IVPUSH (15:06)
[2024-08-10] MEDS: 0.9 % Sodium Chloride Flush 3 ML SYRINGE IVFLUSH ×2 (15:17→20:24)
[2024-08-10] MEDS: Pantoprazole Sodium 40 MG/10 ML VIAL IVPUSH (16:09)
[2024-08-10 16:23] LABS: B Type Natriuretic Peptide < 10 pg/mL (<100)
[2024-08-10] MEDS: Diatrizoate Meglumine, Sodium 30 ML SOLUTION PO (17:49)
[2024-08-10] MEDS: iohexoL 350 MG/ML 100 ML INFUS..BTL 85 ML IV (17:49)
[2024-08-11] VITALS (9 sets, daily range): BP systolic 128–150; BP diastolic 79–88; PULSE 66–88; RESP 16–20; TEMP 36–36.9; O2SAT 90–98
[2024-08-11] MEDS: Piperacillin Sodium/Tazobactam 3.375 GM in 0.9 % Sodium Chloride 50 ML IV ×4 (02:55→19:26)
[2024-08-11] MEDS: Pantoprazole Sodium 40 MG/10 ML VIAL IVPUSH ×2 (05:42→17:30)
[2024-08-11] MEDS: Acetaminophen 1,000 MG/100 ML PIGGYBACK 400 MG IV ×4 (05:45→23:30)
[2024-08-11] MEDS: oxyCODONE HCl Immed Release 5 MG TABLET 10 MG PO ×2 (05:53→13:57)
--- NOTE | 2024-08-11 07:41 | P.PNGS_ITS ---
Subjective Subjective Date of Service: 08/11/24 Interval history: Patient looking much better this a.m.. Finally passed flatus and stool. Tolerating his liquid diet. Official CT scan still pending but consistent with postop ileus. A.m. labs pending Physical Exam 2 Vital Signs: Vital Signs: Last Vital Signs Temp 96.8 F 08/11/24 06:00 Pulse 84 08/11/24 06:00 Resp 20 08/11/24 06:00 BP 128/86 08/11/24 06:00 Pulse Ox 94 08/11/24 06:00 O2 Del Method Room Air 08/11/24 06:00 O2 Flow Rate 5 08/10/24 15:30 BMI result Body Mass Index 36.3 GI: Other: Abdomen corpulent, mildly distended. Incision clean dry and intact healing well. Appropriate incisional tenderness Objective Data Active Medications Albuterol/Ipratropium (Albuterol/Iprat 2.5/0.5mg 3 Ml Ampul.Neb) 3 ml INHALE RQ4H WHILE AWAKE [facility] Last Admin: 08/10/24 19:53 Dose: 3 ml Documented By: NICOLE Benzonatate (Benzonatate 100 Mg Capsule) 100 mg PO TID PRN PRN Reason: Cough Last Admin: 08/08/24 12:49 Dose: 100 mg Documented By: SRAVANTHI Calcium Carbonate (Calcium Carbonate 750 Mg Tab.Chew) 750 mg PO Q4H PRN PRN Reason: Heartburn Last Admin: 08/09/24 14:29 Dose: 750 mg Documented By: RON Famotidine (Famotidine 20 Mg Tablet) 20 mg PO BID [facility] Last Admin: 08/10/24 20:16 Dose: 20 mg Documented By: CHUCK Acetaminophen (Ofirmev) 1,000 mg in 100 mls @ 400 mls/hr IV Q6H [facility] Last Admin: 08/11/24 05:45 Dose: 400 mls/hr Documented By: CHUCK Lactated Ringer's (Lr) 1,000 mls @ 80 mls/hr IVCONT .[id number] [facility] Last Admin: 08/10/24 20:10 Dose: 80 mls/hr Documented By: CHUCK Piperacillin Sod/Tazobactam (Sod 3.375 gm/ Sodium Chloride) 50 mls @ 100 mls/hr IV Q6H [facility] Last Infusion: 08/11/24 03:29 Dose: Infused Documented By: CHUCK Magnesium Hydroxide (Milk Of Magnesia 30 Ml Oral.Susp) 30 ml PO DAILY PRN PRN Reason: Constipation Melatonin (Melatonin 3 Mg Tablet) 6 mg PO BEDTIME PRN PRN Reason: Insomnia Neomycin/Polymyxin/Hydrocortisone (Neomycin/Polymyxin/Hc Otic Sada 10 Ml Drpbtl) 3 drop EAR-RIGHT QID [facility] Last Admin: 08/10/24 20:24 Dose: Not Given Documented By: CHUCK Non-Admin Reason: Patient Refused Ondansetron HCl (Ondansetron Hcl 4 Mg/2 Ml Vial) 4 mg IVPUSH Q8H PRN PRN Reason: Nausea and Vomiting Last Admin: 08/09/24 10:26 Dose: 4 mg Documented By: SHIRA Oxycodone HCl (Oxycodone Hcl Immed Release 5 Mg Tablet) 10 mg PO Q8H PRN PRN Reason: Pain, Moderate(Pain Scale 4-6) Last Admin: 08/11/24 05:53 Dose: 10 mg Documented By: CHUCK Pantoprazole Sodium (Pantoprazole Sodium 40 Mg/10 Ml Vial) 40 mg IVPUSH BID@0630,1630 [facility] Last Admin: 08/11/24 05:42 Dose: 40 mg Documented By: CHUCK Sodium Chloride (0.9 % Sodium Chloride Flush 3 Ml Syringe) 3 ml IVFLUSH QSHIFT [facility] Last Admin: 08/11/24 07:14 Dose: Not Given Documented By: CAS Non-Admin Reason: IV Running Labs 08/10/24 12:10 08/10/24 07:59 Labs: Laboratory Results - last 24 hr 08/10/24 08/10/24 08/10/24 07:59 12:10 14:11 MCV 87.6 MCH 29.5 MCHC 33.6 RDW 13.2 Plt Count 293 MPV Not Reportable Absolute Nucleated RBC 0.000 Nucleated RBC % (auto) 0.0 Hold Purple Top Anion Gap 16 Estim Creat Clear Calc 148.2 Estimated GFR > 60 Random Glucose 113 Calcium 10.9 H B-Natriuretic Peptide Urine Color Dark Yellow Urine Appearance Clear Urine pH 6.5 Ur Specific [place] 1.025 Urine Protein 30 (1+) H Urine Glucose (UA) Negative Urine Ketones 15 Urine Blood Trace H Urine Nitrite Negative Ur Leukocyte Esterase Negative Urine RBC 6-10 H Urine WBC 0-5 Ur Squamous Epith Cells 0-2 Urine Bacteria None Seen Hyaline Casts 0-2 08/10/24 15:29 MCV MCH MCHC RDW Plt Count MPV Absolute Nucleated RBC Nucleated RBC % (auto) Hold Purple Top SEE NOTE Anion Gap Estim Creat Clear Calc Estimated GFR Random Glucose Calcium B-Natriuretic Peptide < 10 Urine Color Urine Appearance Urine pH Ur Specific [place] Urine Protein Urine Glucose (UA) Urine Ketones Urine Blood Urine Nitrite Ur Leukocyte Esterase Urine RBC Urine WBC Ur Squamous Epith Cells Urine Bacteria Hyaline Casts Procedures Date of Service Date of Service: 08/11/24 Progress Note: A&P Assessment and plan (1) S/P colon resection: Status: Acute Plan Advance diet as tolerated, encourage out of bed/ambulation, incentive spirometry. Decrease IV as p.o. his increased Time Spent With Patient Time: Total time managing care of this patient today ____ minutes. Quality Stroke Does the patient have a stroke diagnosis?: No VTE Prior VTE?: No VTE Risk Level:: Medical - moderate - high VTE Device Contraindication: N/A - Device Ordered VTE Drug Contraindication: Treatment Not Indicated
[2024-08-11] MEDS: Albuterol/Iprat 2.5/0.5MG 3 ML AMPUL.NEB INHALE ×4 (07:52→18:58)
--- NOTE | 2024-08-11 09:09 | MHC.CLN ---
Addendum entered by Galilea Gudino RD 08/11/24 15:04: DIET ADVANCED TO REGULAR TODAY. Original Note: NUTRITION PATIENT IS S/P COLON RESECTION AND POST OP ILEUS. DIET=CLEAR LIQUIDS. NPO OR CLEAR LIQUIDS SINCE 08/04. FOLLOW FOR DIET ADVANCEMENT. MAY NEED ALTERNATE NUTRITION IF UNABLE TO TAKE ADEQUATE PO.
[2024-08-11] MEDS: Famotidine 20 MG TABLET PO (09:10)
[2024-08-11] MEDS: Lactated Ringers 1,000 ML 80 ML IVCONT (09:17)
--- NOTE | 2024-08-11 13:23 | P.PNIM_ITS ---
Subjective Subjective Date of Service: 08/11/24 Interval History: passing gas and stool, pain controlled, ambulating several times a day Review of Systems Review of Systems: Yes all other systems are reviewed and are negative Physical Exam 2 Vital Signs: Vital Signs: Last Vital Signs Temp 96.9 F 08/11/24 08:04 Pulse 71 08/11/24 12:08 Resp 18 08/11/24 12:08 BP 144/86 H 08/11/24 08:04 Pulse Ox 98 08/11/24 08:04 O2 Del Method Room Air 08/11/24 08:04 O2 Flow Rate 5 08/10/24 15:30 BMI result Body Mass Index 36.3 Gen: in no acute distress HEENT: sclera anicteric, moist mucus membranes Neck: supple Lungs: clear to auscultation bilaterally Heart: regular rate and rhythm, no murmurs Abd: soft, midline abd incision with ambrosio, non-distended Ext: no edema Skin: warm/well-perfused Neuro: alert and oriented x3, no focal findings Psych: appropriate affect Objective Data Active Medications Albuterol/Ipratropium (Albuterol/Iprat 2.5/0.5mg 3 Ml Ampul.Neb) 3 ml INHALE RQ4H WHILE AWAKE [facility] Last Admin: 08/11/24 12:05 Dose: 3 ml Documented By: JAMES Benzonatate (Benzonatate 100 Mg Capsule) 100 mg PO TID PRN PRN Reason: Cough Last Admin: 08/08/24 12:49 Dose: 100 mg Documented By: SRAVANTHI Calcium Carbonate (Calcium Carbonate 750 Mg Tab.Chew) 750 mg PO Q4H PRN PRN Reason: Heartburn Last Admin: 08/09/24 14:29 Dose: 750 mg Documented By: RON Famotidine (Famotidine 20 Mg Tablet) 20 mg PO BID [facility] Last Admin: 08/11/24 09:10 Dose: 20 mg Documented By: CAS Acetaminophen (Ofirmev) 1,000 mg in 100 mls @ 400 mls/hr IV Q6H [facility] Last Infusion: 08/11/24 13:06 Dose: Infused Documented By: CAS Lactated Ringer's (Lr) 1,000 mls @ 80 mls/hr IVCONT .[id number] [facility] Last Admin: 08/11/24 09:17 Dose: 80 mls/hr Documented By: CAS Piperacillin Sod/Tazobactam (Sod 3.375 gm/ Sodium Chloride) 50 mls @ 100 mls/hr IV Q6H [facility] Last Infusion: 08/11/24 09:45 Dose: Infused Documented By: CAS Magnesium Hydroxide (Milk Of Magnesia 30 Ml Oral.Susp) 30 ml PO DAILY PRN PRN Reason: Constipation Melatonin (Melatonin 3 Mg Tablet) 6 mg PO BEDTIME PRN PRN Reason: Insomnia Neomycin/Polymyxin/Hydrocortisone (Neomycin/Polymyxin/Hc Otic Sada 10 Ml Drpbtl) 3 drop EAR-RIGHT QID [facility] Last Admin: 08/11/24 12:30 Dose: Not Given Documented By: CAS Non-Admin Reason: Patient Refused Ondansetron HCl (Ondansetron Hcl 4 Mg/2 Ml Vial) 4 mg IVPUSH Q8H PRN PRN Reason: Nausea and Vomiting Last Admin: 08/09/24 10:26 Dose: 4 mg Documented By: SHIRA Oxycodone HCl (Oxycodone Hcl Immed Release 5 Mg Tablet) 10 mg PO Q8H PRN PRN Reason: Pain, Moderate(Pain Scale 4-6) Last Admin: 08/11/24 05:53 Dose: 10 mg Documented By: CHUCK Pantoprazole Sodium (Pantoprazole Sodium 40 Mg/10 Ml Vial) 40 mg IVPUSH BID@0630,1630 [facility] Last Admin: 08/11/24 05:42 Dose: 40 mg Documented By: CHUCK Sodium Chloride (0.9 % Sodium Chloride Flush 3 Ml Syringe) 3 ml IVFLUSH QSHIFT [facility] Last Admin: 08/11/24 07:14 Dose: Not Given Documented By: CAS Non-Admin Reason: IV Running Labs 08/10/24 12:10 08/10/24 07:59 Labs: Laboratory Results - last 24 hr 08/10/24 08/10/24 08/10/24 12:10 14:11 15:29 Plt Count 293 MPV Not Reportable Hold Purple Top SEE NOTE B-Natriuretic Peptide < 10 Urine Color Dark Yellow Urine Appearance Clear Urine pH 6.5 Ur Specific [place] 1.025 Urine Protein 30 (1+) H Urine Glucose (UA) Negative Urine Ketones 15 Urine Blood Trace H Urine Nitrite Negative Ur Leukocyte Esterase Negative Urine RBC 6-10 H Urine WBC 0-5 Ur Squamous Epith Cells 0-2 Urine Bacteria None Seen Hyaline Casts 0-2 Assessment and Plan (1) S/P colon resection: Status: Acute (2) Leucocytosis: Status: Acute Plan d8 for 58yo M with mild intermittent asthma, congenital deafness, rectal prolapse presenting with severe abd pain x1d, found to have 6cm malignant mass of transverse colon colon mass - colonoscopy 08/[address] Tom showed apple-core mass consistent with carcinoma - underwent exploratory laparotomy, transverse colectomy, takedown splenic flexure primary, colo colo anastomosis, partial omentectomy 08/[address] Fischer - developed postop ileus but that has now resolved - d/c piperacillin-tazobactam; unclear indication - advance diet to solids today mild intermittent asthma - prn nebs VTE ppx - enoxaparin dispo - likely home In my clinical judgment, the patient requires continued inpatient hospitalization for the following reasons: postop care Total time managing care of this patient today: 35 minutes. Quality Stroke Does the patient have a stroke diagnosis?: No VTE Prior VTE?: No VTE Risk Level:: Medical - moderate - high VTE Device Contraindication: N/A - Device Ordered VTE Drug Contraindication: Treatment Not Indicated
[2024-08-11] MEDS: Enoxaparin Sodium 40 MG/0.4 ML SYRINGE SUBCUT (13:57)
[2024-08-11] MEDS: 0.9 % Sodium Chloride Flush 3 ML SYRINGE IVFLUSH ×2 (15:04→19:26)
--- NOTE | 2024-08-11 15:10 | MHC.CM.PN ---
per rounds pt not medically ready for dc dc plan remains home
[2024-08-11] MEDS: Amoxicillin/Potassium Clav 875 MG TABLET PO (17:30)
[2024-08-12] MEDS: ondansetron HCL 4 MG/2 ML VIAL IVPUSH (01:40)
[2024-08-12] MEDS: Calcium Carbonate 750 MG TAB.CHEW PO ×3 (01:40→12:08)
[2024-08-12] MEDS: oxyCODONE HCl Immed Release 5 MG TABLET 10 MG PO (03:10)
[2024-08-12] MEDS: Piperacillin Sodium/Tazobactam 3.375 GM in 0.9 % Sodium Chloride 50 ML IV (03:13)
[2024-08-12] MEDS: Metoclopramide HCl 10 MG/2 ML VIAL IVPUSH (03:29)
--- NOTE | 2024-08-12 03:39 | PC.NURSE ---
pt severely nausea this morning, zofran given with no effect, reglan ordered, per Dr. Royal. Effectiveness pending. One small episode of vomit, yellow/brown, bile like appearance. No blood or fecal substance noted. Dr. Royal made aware. pt reports feeling very warm, temp: 98.8. Cool wet wash clothes applied to back of neck and head, pt sitting in recliner to try to relieve pressure in abd.
[2024-08-12 04:00] VITALS: BP 158/94; PULSE 93; RESP 20; TEMP 36.4; O2SAT 93
[2024-08-12] MEDS: Pantoprazole Sodium 40 MG/10 ML VIAL IVPUSH (06:06)
[2024-08-12] MEDS: Amoxicillin/Potassium Clav 875 MG TABLET PO (06:06)
[2024-08-12] MEDS: Acetaminophen 1,000 MG/100 ML PIGGYBACK 400 MG IV (06:13)
[2024-08-12 07:09] LABS: Hematocrit 43.1 % (42.0-52.0); Hemoglobin 14.4 g/dl (14.0-18.0); Mean Corpuscular HGB Conc 33.4 g/dl (31.0-36.0); Mean Corpuscular Hemoglobin 29.8 pg (27.0-33.0); Mean Corpuscular Volume 89.2 fL (80.0-98.0); Mean Platelet Volume 9.9 fL (9.4-12.4); Platelet Count 353 X10*3/uL (160-400); Red Blood Count 4.83 X10*6/uL (4.60-5.80); Red Cell Distribution Width 13.2 % (11.0-16.0); White Blood Count 11.7 X10*3/uL (4.8-10.8)
[2024-08-12 07:30] LABS: Anion Gap 18 (12-20); Blood Urea Nitrogen 11 mg/dL (9-16); Carbon Dioxide 29 mmol/L (22-29); Chloride 92 mmol/L (96-108); Creatinine Clr Calc Pharmacy 150.1; Estimated Glomerular Filt Rate > 60; Glucose Random 100 mg/dL (60-115); Potassium 3.5 mmol/L (3.3-5.1); Sodium 135 mmol/L (135-145)
[2024-08-12] MEDS: 0.9 % Sodium Chloride Flush 3 ML SYRINGE IVFLUSH (07:39)
[2024-08-12 07:47] VITALS: BP 145/69; PULSE 90; RESP 20; TEMP 36.2; O2SAT 95
[2024-08-12 07:48] LABS: Procalcitonin 0.21 ng/mL
--- NOTE | 2024-08-12 07:58 | PM.PNGS ---
Subjective Subjective Date of Service: 08/12/24 Interval history: Apparently had an episode of vomiting overnight per RN. Patient continues to c/o heartburn. Passing flatus and has had multiple BMs. OOB and ambulating halls occasionally. Physical Exam Vital Signs: Vital Signs: Last Vital Signs Temp 97.1 F 08/12/24 07:47 Pulse 90 08/12/24 07:47 Resp 20 08/12/24 07:47 BP 145/69 H 08/12/24 07:47 Pulse Ox 95 08/12/24 07:47 O2 Del Method Room Air 08/12/24 07:47 O2 Flow Rate 5 08/10/24 15:30 BMI result Body Mass Index 36.3 Const: General: comfortable, no acute distress and alert Orientation/consciousness: patient oriented x3 Resp: Effort & Inspection: normal respiratory effort GI: Inspection: Yes distended and Yes incision (clean) Palpation (GI): Soft to palpation, Tenderness to palpation present (GI) (mild ) and no guarding Percussion: Yes tympanic to percussion Skin: General skin exam: no rashes or lesions noted Neuro: General: patient oriented x3 and moves all extremities Objective Data Active Medications Albuterol/Ipratropium (Albuterol/Iprat 2.5/0.5mg 3 Ml Ampul.Neb) 3 ml INHALE RQ4H WHILE AWAKE [facility] Last Admin: 08/11/24 18:58 Dose: 3 ml Documented By: JOHANN Amoxicillin/Clavulanate Potassium (Amoxicillin/Potassium Clav 875 Mg Tablet) 875 mg PO Q12H [facility] Last Admin: 08/12/24 06:06 Dose: 875 mg Documented By: CHUCK Benzonatate (Benzonatate 100 Mg Capsule) 100 mg PO TID PRN PRN Reason: Cough Last Admin: 08/08/24 12:49 Dose: 100 mg Documented By: SRAVANTHI Calcium Carbonate (Calcium Carbonate 750 Mg Tab.Chew) 750 mg PO Q4H PRN PRN Reason: Heartburn Last Admin: 08/12/24 07:39 Dose: 750 mg Documented By: CAS Enoxaparin Sodium (Enoxaparin Sodium 40 Mg/0.4 Ml Syringe) 40 mg SUBCUT Q24H [facility] Last Admin: 08/11/24 13:57 Dose: 40 mg Documented By: RON Acetaminophen (Ofirmev) 1,000 mg in 100 mls @ 400 mls/hr IV Q6H [facility] Last Infusion: 08/12/24 06:34 Dose: Infused Documented By: CHUCK Magnesium Hydroxide (Milk Of Magnesia 30 Ml Oral.Susp) 30 ml PO DAILY PRN PRN Reason: Constipation Melatonin (Melatonin 3 Mg Tablet) 6 mg PO BEDTIME PRN PRN Reason: Insomnia Neomycin/Polymyxin/Hydrocortisone (Neomycin/Polymyxin/Hc Otic Sada 10 Ml Drpbtl) 3 drop EAR-RIGHT QID [facility] Last Admin: 08/12/24 07:31 Dose: Not Given Documented By: CAS Non-Admin Reason: Patient Refused Ondansetron HCl (Ondansetron Hcl 4 Mg/2 Ml Vial) 4 mg IVPUSH Q8H PRN PRN Reason: Nausea and Vomiting Last Admin: 08/12/24 01:40 Dose: 4 mg Documented By: CHUCK Oxycodone HCl (Oxycodone Hcl Immed Release 5 Mg Tablet) 10 mg PO Q8H PRN PRN Reason: Pain, Moderate(Pain Scale 4-6) Last Admin: 08/12/24 03:10 Dose: 10 mg Documented By: CHUCK Pantoprazole Sodium (Pantoprazole Sodium 40 Mg/10 Ml Vial) 40 mg IVPUSH BID@0630,1630 [facility] Last Admin: 08/12/24 06:06 Dose: 40 mg Documented By: CHUCK Sodium Chloride (0.9 % Sodium Chloride Flush 3 Ml Syringe) 3 ml IVFLUSH QSHIFT [facility] Last Admin: 08/12/24 07:39 Dose: 3 ml Documented By: CAS Labs 08/12/24 05:44 08/12/24 05:44 Labs: Laboratory Results - last 24 hr 08/12/24 05:44 MCV 89.2 MCH 29.8 MCHC 33.4 RDW 13.2 Plt Count 353 MPV 9.9 Absolute Nucleated RBC 0.000 Nucleated RBC % (auto) 0.0 Anion Gap 18 Estim Creat Clear Calc 150.1 Estimated GFR > 60 Random Glucose 100 Calcium 10.0 D Procalcitonin 0.21 Procedures Date of Service Date of Service: 08/12/24 Progress Note: A&P Assessment and plan (1) S/P colon resection: Status: Acute Plan POD #5 s/p exploratory laparotomy, transverse colectomy, takedown splenic flexure primary, colo colo anastomosis, partial omentectomy for obstructing distal tranverse colon lesion. Slowly improving, now with good GI function. VSS. Abd overall benign, remains distended but softly, improving. Diet as tolerated. Increasing ambulation and activity. WBC almost normalized, likely reactive. Time Spent With Patient Time: Total time managing care of this patient today ____ minutes. Quality Stroke Does the patient have a stroke diagnosis?: No VTE Prior VTE?: No VTE Risk Level:: Medical - moderate - high VTE Device Contraindication: N/A - Device Ordered VTE Drug Contraindication: Treatment Not Indicated
[2024-08-12] MEDS: Albuterol/Iprat 2.5/0.5MG 3 ML AMPUL.NEB INHALE ×2 (08:10→11:43)
[2024-08-12 08:11] VITALS: PULSE 86; RESP 20; O2SAT 89
--- NOTE | 2024-08-12 10:51 | PM.DS ---
DS: Providers Provider Date of Service: 08/12/24 Date of admission: 08/04/24 12:38 Date of discharge: 08/12/24 Primary care physician: MICHAEL Pruett Consults: 08/04/24 12:44 Consult to Gastroenterology Routine Consulting Provider: Juan Pablo Tom Reason for consultation: Colonic mass on CT, ?malignancy 08/05/24 13:04 Consult to General Surgery Routine Consulting Provider: [facility] General Surgeons Reason for consultation: colon mass Has provider been notified: No DS: Diagnosis Discharge Diagnosis (1) Mucinous adenocarcinoma of colon: Status: Acute (2) S/P colon resection: Status: Acute (3) Pneumonia: Status: Acute DS: Summary Hospital Course Hospital Course: From the history and physical by the admitting hospitalist, SARAH Damon, 08/04/24: Pt is a 58-year-old male with a PMH significant for?mild intermittent asthma, congenital deafness, and hx of rectal prolapse who presents to the ED with?severe abdominal pain x1 day. Patient reports began experiencing abdominal discomfort yesterday morning that significantly worsened at 15:00. Pain was sharp and stabbing in nature, intermittent, coming in waves, and radiated to right side. Patient reports had last bowel movement at noon yesterday prior to worsening abdominal pain. Continues to pass gas. No nausea, vomiting, or diarrhea. No chest pain, pressure, or palpitations. Denies SOB or difficulty breathing. No fever or chills. Pt denies any recent weight loss or increased fatigue. No melena or hematochezia. Pt has not previously undergone a colonoscopy. In the ED pt was initially hypertensive up to 152/88, otherwise labs WNL and stable. Labs were significant for leukocytosis 12.0, otherwise grossly unremarkable. Stable H& H. No significant electrolyte abnormalities. Renal and hepatic function baseline. CT?abdomen and pelvis found 6 cm segmental wall thickening/edema pattern and pericolonic edema pattern of distal transverse colon concerning for malignancy. Pt was treated with acetaminophen, Tums, ondansetron, IVF, and morphine. ED clinician reached out to GI who suggested that patient be admitted to the hospital for colonoscopy tomorrow morning. Pt will be admitted to the hospital for treatment and further evaluation of intractable abdominal pain likely secondary to colonic mass concerning for malignancy. 58yo M with mild intermittent asthma, congenital deafness, rectal prolapse presenting with severe abd pain x1d and admitted to the hospitalist service and found to have a 6cm malignant mass of transverse colon. Colonoscopy 08/05/[address] Juan Pablo Tom showed an apple-core mass consistent with carcinoma. The next day, he underwent exploratory laparotomy, transverse colectomy, takedown splenic flexure primary, colo colo anastomosis, and partial omentectomy 08/06/[address] Nikolai Fischer. Postoperatively, he developed an ileus that resolved without specific intervention. Diet was advanced with good tolerance. He was treated with piperacillin-tazobactam for pneumonia and discharged on amoxicillin-clavulanate for 4 days. Pathology showed stage 2 mucinous adenocarcinoma with genetic testing pending. He should follow up with General Surgery in 1 week and with Medical Oncology in 2 weeks. Time Attestation Discharge Coordination Time (in mins): 45 Quality: Safe Use of Opioids Does Pt have an Active Cancer Diagnosis on the Problem List?: No Quality: Stroke Does the patient have a stroke diagnosis?: No Physical Exam Vital Signs: Vital Signs: Last Vital Signs Temp 97.1 F 08/12/24 07:47 Pulse 86 08/12/24 08:11 Resp 20 08/12/24 08:11 BP 145/69 H 08/12/24 07:47 Pulse Ox 95 08/12/24 07:47 O2 Del Method Room Air 08/12/24 07:47 O2 Flow Rate 5 08/10/24 15:30 BMI result Body Mass Index 36.3 Gen: in no acute distress HEENT: sclera anicteric, moist mucus membranes Neck: supple Lungs: clear to auscultation bilaterally Heart: regular rate and rhythm, no murmurs Abd: soft, midline abdominal incision with Steristrips clean/dry/intact, non-distended Ext: no edema Skin: warm/well-perfused Neuro: alert and oriented x3, no focal findings Psych: appropriate affect DS: Data Data Completed and Pending Completed studies during hospitalization [Text1]: Laboratory Results WBC 11.7 X10*3/uL (4.8-10.8) H 08/12/24 05:44 RBC 4.83 X10*6/uL (4.60-5.80) 08/12/24 05:44 Hgb 14.4 g/dl (14.0-18.0) 08/12/24 05:44 Hct 43.1 % (42.0-52.0) 08/12/24 05:44 MCV 89.2 fL (80.0-98.0) 08/12/24 05:44 MCH 29.8 pg (27.0-33.0) 08/12/24 05:44 MCHC 33.4 g/dl (31.0-36.0) 08/12/24 05:44 RDW 13.2 % (11.0-16.0) 08/12/24 05:44 Plt Count 353 X10*3/uL (160-400) 08/12/24 05:44 MPV 9.9 fL (9.4-12.4) 08/12/24 05:44 Immature Gran % (Auto) 0.4 % (0.0-0.4) 08/07/24 07:39 Neut % (Auto) 82.7 % (45-73) H 08/07/24 07:39 Lymph % (Auto) 8.0 % (20-40) L 08/07/24 07:39 [place] % (Auto) 8.5 % (2-11) 08/07/24 07:39 Eos % (Auto) 0.3 % (0-4) 08/07/24 07:39 Baso % (Auto) 0.1 % (0-2) 08/07/24 07:39 Lymph # (Auto) 1.1 X10*3/uL (1.2-4.9) L 08/07/24 07:39 [place] # (Auto) 1.2 X10*3/uL (0.1-1.2) 08/07/24 07:39 Eos # (Auto) 0.0 X10*3/uL (0.0-0.4) 08/07/24 07:39 Baso # (Auto) 0.0 X10*3/uL (0.0-0.2) 08/07/24 07:39 Abs Immat Gran (auto) 0.06 X10*3/uL (0.00-0.03) H 08/07/24 07:39 Absolute Neuts (auto) 11.5 x10*3/uL (2.0-8.3) H 08/07/24 07:39 Absolute Nucleated RBC 0.000 X10*3/uL (0.0-0.012) 08/12/24 05:44 Nucleated RBC % (auto) 0.0 /100WBC (0.0-0.2) 08/12/24 05:44 Hold Purple Top SEE NOTE 08/10/24 15:29 Sodium 135 mmol/L (135-145) 08/12/24 05:44 Potassium 3.5 mmol/L (3.3-5.1) 08/12/24 05:44 Chloride 92 mmol/L (96-108) L 08/12/24 05:44 Carbon Dioxide 29 mmol/L (22-29) 08/12/24 05:44 Anion Gap 18 (12-20) 08/12/24 05:44 BUN 11 mg/dL (9-16) 08/12/24 05:44 Creatinine 0.76 mg/dL (0.5-1.4) 08/12/24 05:44 Estim Creat Clear Calc 150.1 08/12/24 05:44 Estimated GFR > 60 08/12/24 05:44 Random Glucose 100 mg/dL (60-115) 08/12/24 05:44 Fasting Glucose 106 mg/dL (60-99) H 08/07/24 07:39 Calcium 10.0 mg/dL (8.4-10.2) D 08/12/24 05:44 Total Bilirubin 0.4 mg/dL (0.0-1.0) 08/03/24 21:33 Direct Bilirubin 0.1 mg/dL (0.0-0.5) 08/03/24 21:33 AST 20 U/L (5-37) 08/03/24 21:33 ALT 21 U/L (0-40) 08/03/24 21:33 Alkaline Phosphatase 81 U/L (39-117) 08/03/24 21:33 B-Natriuretic Peptide < 10 pg/mL (<100) 08/10/24 15:29 Total Protein 7.5 g/dL (6.5-8.0) 08/03/24 21:33 Albumin 4.4 g/dL (3.5-5.0) 08/03/24 21:33 Lipase 12 U/L (8-78) 08/03/24 21:33 Carcinoembryonic Ag 7.60 ng/mL 08/05/24 19:52 Procalcitonin 0.21 ng/mL 08/12/24 05:44 Urine Color Dark Yellow 08/10/24 14:11 Urine Appearance Clear 08/10/24 14:11 Urine pH 6.5 (5.0-9.0) 08/10/24 14:11 Ur Specific [place] 1.025 (1.005-1.025) 08/10/24 14:11 Urine Protein 30 (1+) mg/dL (Neg-Trace) H 08/10/24 14:11 Urine Glucose (UA) Negative mg/dL (Negative) 08/10/24 14:11 Urine Ketones 15 mg/dL (Negative) 08/10/24 14:11 Urine Blood Trace (Negative) H 08/10/24 14:11 Urine Nitrite Negative (Negative) 08/10/24 14:11 Ur Leukocyte Esterase Negative (Negative) 08/10/24 14:11 Urine RBC 6-10 /HPF (0-2) H 08/10/24 14:11 Urine WBC 0-5 /HPF (0-5) 08/10/24 14:11 Ur Squamous Epith Cells 0-2 /HPF (0-2) 08/10/24 14:11 Urine Bacteria None Seen (None Seen) 08/10/24 14:11 Hyaline Casts 0-2 /LPF (0-2) 08/10/24 14:11 Impressions KUB X-Ray 08/09/24 09:13 IMPRESSION: Diffusely distended loops of large and small bowel consistent with ileus. Electronically signed by: Honorio Fry MD 08/09/2024 02:34 PM EST RP Chest X-Ray 08/10/24 13:45 IMPRESSION: Multifocal pneumonia versus mild interstitial lung edema Electronically signed by: Alexis Alan MD 08/10/2024 02:38 PM EST RP Abdomen/Pelvis CT 08/10/24 17:32 IMPRESSION: Findings consistent with small bowel obstruction, possibly early or partial. Transverse colonic anastomotic ambrosio. Mild induration of fat in the region of the anastomotic ambrosio. No abscess or free air identified identified. Small amount of ascites. Small amount of air within the nondependent portion of the urinary bladder, possibly iatrogenic. Recommend clinical correlation. Electronically signed by: Julius Wilson MD 08/11/2024 07:48 AM EST Pathology, 08/06/24: Colon, transverse, segmental resection: - Mucinous carcinoma, moderately differentiated; invasive into subserosal tissue; negative margins. - 25 lymph nodes negative for metastatic carcinoma. - pT3 N0 (AJCC Stage 8th ed.) Ancillary studies: Pending (MSI and HER2 will be addended) Discharge Plan Discharge Anticipated Discharge Date/Time: 08/12/24 10:43 Patient Disposition: Home, Self-Care Discharge Diagnosis: colon cancer pneumonia Referrals: Nikolai Fischer MD [Physician] - 1 Week Larisa Solis FNP [Primary Care Provider] - 1 Week Carine Garcia MD [Physician] - 2 Weeks Discharge Medications: New hydrocodone-acetaminophen 5-325 mg tablet 1 tab PO Q4-6H PRN (Reason: pain) Qty: 30 0RF Rx Instructions: Partial Fill upon patient request. famotidine 20 mg Tablet 20 mg PO BID Qty: 60 0RF amoxicillin-pot clavulanate 875-125 mg Tablet 1 tab PO Q12H Qty: 8 0RF Continued acetaminophen 325 mg Tablet 650 mg PO BID PRN (Reason: Pain) Discharge Orders: Discharge Order (Routine); Ordered 08/12/24 Ordered By: Ariela Pate Diet: Advance to usual diet Activity on Discharge: No heavy lifting Stand Alone Forms: Patient Portal Discharge page Print Language: Citizen Of [place] Activity Restrictions/Additional Instructions: Ice to wound 20 minutes several times today and tomorrow. May shower . Remove outside dressing only. Leave Steri-Strips intact. No strenuous activities Care Plan Goals: recovery from surgery Health Concerns: colon cancer pneumonia Plan of Treatment: follow up with [facility] General Surgery [Dr Nikolai Fischer] in one week take acetaminophen [Tylenol] for mild/moderate pain, hydrocodone-acetaminophen [Vicodin] for severe pain take amoxicillin-clavulanate twice daily for 4 days follow up with [facility] Oncology [Dr Carine Garcia] in two weeks Please follow up with your primary care doctor within 1 week. Return to the hospital if you experience recurrent or worsening symptoms. Assessment: See Discharge Summary.
--- NOTE | 2024-08-12 10:57 | MHC.CM.PN ---
PT WILL DC HOME TODAY WITH NO SERVICES [facility] TO TRANSPORT
[2024-08-12 11:43] VITALS: PULSE 80; RESP 16; O2SAT 92
[2024-08-12] MEDS: Acetaminophen 325 MG TABLET 650 MG PO (12:51)
[2024-08-12] MEDS: Milk of Magnesia 30 ML ORAL.SUSP PO (13:35)
== END 2024-08-12 14:48 | disposition home or self-care (01) | DRG 231 ==
LOC: HO.ED 08-04 11:41 → HO.EDOVER 08-04 13:00 → HO.S3 08-05 13:24
PROVIDERS: Internal Medicine; Internal Medicine Gastroenterology; Physician Assistant Surgical; Student in an Organized Health Care Education/Training Program; Surgery; Admitting Provider Student in an Organized Health Care Education/Training Program; Emergency Provider Emergency Medicine Emergency Medical Services; PCP Nurse Practitioner Family; Visit Provider Family Medicine
PROC: 0DJD8ZZ Inspection of Lower Intestinal Tract, Via Natural or Artificial Opening Endoscopic (ICD-10-PCS; CPT 45378; principal; 2024-08-05 12:00)
PROC: 0DBL0ZZ Excision of Transverse Colon, Open Approach (ICD-10-PCS; principal; 2024-08-06 11:40)
DX: C18.4 Malignant neoplasm of transverse colon (principal); J18.9 Pneumonia, unspecified organism; K56.7 Ileus, unspecified; J45.20 Mild intermittent asthma, uncomplicated; H90.5 Unspecified sensorineural hearing loss; G89.18 Other acute postprocedural pain; Z79.899 Other long term (current) drug therapy
CPT/HCPCS: 36415; 71045; 74018; 74177; 80048; 80053; 81001; 82248; 82378; 83690; 83880; 84145; 85025; 85027; 88305; 88309; 88341; 88342; 88360; 99285; C1758; J0131; J1100; J1171; J1650; J1940; J2003; J2250; J2270; J2405; J2470; J2543; J2704; J2765; J2795; J3010; J7120; Q9967

== ENCOUNTER → 2024-08-04 06:13 | Outpatient (BNV) | payer BC, SELFPAY | PROVIDERS: Emergency Provider Emergency Medicine Emergency Medical Services; PCP Nurse Practitioner Family; Visit Provider Radiology Diagnostic Radiology | DX: R10.9 Unspecified abdominal pain (principal) | CPT/HCPCS: 74177 ==

== ENCOUNTER 2024-08-04 12:38 | Outpatient (BNV) | payer BC, SELFPAY | END 2024-08-10 13:45 | PROVIDERS: Admitting Provider Student in an Organized Health Care Education/Training Program; Emergency Provider Emergency Medicine Emergency Medical Services; PCP Nurse Practitioner Family; Visit Provider Radiology Diagnostic Radiology | DX: Z93.4 Other artificial openings of gastrointestinal tract status (principal) | CPT/HCPCS: 71045 ==

== ENCOUNTER → 2024-08-04 12:38 | Outpatient (BNV) | payer BC, SELFPAY | PROVIDERS: Admitting Provider Student in an Organized Health Care Education/Training Program; Emergency Provider Emergency Medicine Emergency Medical Services; PCP Nurse Practitioner Family; Visit Provider Student in an Organized Health Care Education/Training Program | DX: C18.9 Malignant neoplasm of colon, unspecified (principal); Z90.49 Acquired absence of other specified parts of digestive tract; J18.9 Pneumonia, unspecified organism | CPT/HCPCS: 99222; 99231; 99232; 99239 ==

== ENCOUNTER → 2024-08-04 12:38 | Outpatient (BNV) | payer BC, SELFPAY | PROVIDERS: Admitting Provider Student in an Organized Health Care Education/Training Program; Emergency Provider Emergency Medicine Emergency Medical Services; PCP Nurse Practitioner Family; Visit Provider Surgery | DX: K63.89 Other specified diseases of intestine (principal) | CPT/HCPCS: 44139; 44140; 99024; 99223 ==

== ENCOUNTER 2024-08-13 01:19 | Inpatient (IN) | payer BC, SELFPAY ==
[2024-08-13] VITALS (7 sets, daily range): BP systolic 122–151; BP diastolic 62–95; PULSE 75–88; RESP 14–19; TEMP 36.3–37.1; O2SAT 89–96; BMI 35.6
--- NOTE | ~2024-08-13 | FL_ITS ---
EXAMINATION: Abdominal radiographs CLINICAL INFORMATION: Complete small bowel obstruction. COMPARISON: Abdominal radiographs August 13, 2024 TECHNIQUE: Upright imaging of the abdomen was obtained. FINDINGS: Enteric tube terminates within the stomach. There is a prominent air-fluid level within the stomach. Numerous dilated loops of small bowel are again noted measuring up to 5.5 cm, stable. Numerous scattered air-fluid levels are present throughout the abdomen. No definitive free intra-abdominal air identified on today's upright imaging. Visualized lung bases are well aerated. FL/FL upper GI small bowel IMPRESSION: 1. Persistent small bowel obstruction, not significantly changed from prior imaging. 2. No definitive free intra-abdominal air identified on today's upright imaging. Electronically signed by: Charli Vogel MD 08/14/2024 11:23 AM [facility]
--- NOTE | ~2024-08-13 | XR_ITS ---
EXAMINATION: XR ABDOMEN KUB CLINICAL INDICATION: Follow-up ileus versus SBO contrast transit COMPARISON: CT abdomen and pelvis 09/12/2024. TECHNIQUE: AP view of the abdomen. FINDINGS: Multiple gas-filled dilated small bowel segments are present with small bowel segments measuring up to approximately 5 cm in diameter. Excreted IV contrast agent is noted in the urinary bladder. Gas is noted within nondilated colonic segments. Partial visualization is made of an enteric tube terminating in projection with the expected location of the gastric body. XR/XR KUB IMPRESSION: Multiple gas-filled dilated small bowel segments suspicious for obstruction. Electronically signed by: Mark Ontiveros MD 08/14/2024 03:54 AM [facility] [place]
--- NOTE | ~2024-08-13 | CT_ITS ---
EXAMINATION: CT ABDOMEN AND PELVIS WITH CONTRAST CLINICAL INFORMATION: Status post colectomy 11:15. Abdominal pain. Vomiting. COMPARISON: CT abdomen and pelvis 08/10/2024. TECHNIQUE: Multidetector volumetric images were obtained from the superior aspect of the liver through the pubic symphysis following administration 85 mL of Omnipaque 350 intravenous contrast. Sagittal and coronal reformatted images were obtained on the technologist's workstation. Oral contrast: No This CT examination was performed using dose optimization techniques as appropriate, variously including the following: *Automated exposure control *Adjustment of mA and/or kV according to patient size (this includes techniques or standardized protocols for targeted exams where dose is matched to indication/reason for exam; i.e. extremities or head) *Use of iterative reconstruction technique DLP: 1136 mGy-cm FINDINGS: LUNG BASES: Bibasilar partial atelectasis of the incidentally visualized lung bases. Dense coronary artery calcific plaques noted in the left anterior descending and partially visualized within the left circumflex coronary arteries. LIVER, GALLBLADDER, AND BILIARY TREE: Diffuse low-density of the liver. Punctate calcification in the region of the fundus the gallbladder which may present partial visualization of cholelithiasis. PANCREAS: Unremarkable. SPLEEN: Unremarkable. ADRENAL GLANDS: Unremarkable. KIDNEYS AND URETERS: The kidneys are normal in size, shape, and attenuation. No hydronephrosis, hydroureter, or calculi seen. No perinephric stranding. BLADDER: Nondependent gas noted anteriorly within the lumen of the gallbladder GASTROINTESTINAL TRACT: Metastatic sutures are noted in association with a transverse colon. Normal appearance of the appendix side from a 3 mm punctate high density focus which may represent an appendicolith at the fundus of the appendix. Multiple contiguous markedly dilated thin walled dilated small bowel segments are present. Discrete transition point between dilated and nondilated small bowel suggested in the anterior epigastric region (series 3 image 63, series 7 image 25 involving the distal ileum. The stomach demonstrates moderate to marked fluid distention. The jejunum is contiguously distended. No free intraperitoneal gas identified. No focal twisting of the small bowel mesentery identified. Scattered interloop and pelvic low density free intraperitoneal fluid is present. Mild right subphrenic free intraperitoneal fluid noted. ABDOMINAL WALL: Ventral midline incision is noted. No abdominal wall intestinal hernia noted. LYMPH NODES: Normal. VASCULAR: Mild scattered calcific atherosclerosis PELVIC VISCERA: Normal appearance of the prostate and seminal vesicles OSSEOUS STRUCTURES: No suspicious skeletal abnormalities identified. CT/CT abdomen pelvis w IV con IMPRESSION: *High-grade small bowel obstruction with a transition between dilated and nondilated small bowel within the distal ileum. Findings may be secondary to otherwise nonvisualized adhesions. No discrete internal hernia or abdominal wall intestinal hernia identified. No twisting of the small bowel mesentery to specifically suggest small bowel volvulus. Findings are associated with moderate-marked fluid distention of the stomach which may predispose for aspiration. Scattered reactive appearing free intraperitoneal fluid noted. No free intraperitoneal gas identified to suggest intestinal perforation. *Status post partial colectomy. Anastomotic sutures within the transverse colon. *Punctate calcification which may represent radiodense cholelithiasis within the gallbladder lumen. Electronically signed by: Mark Ontiveros MD 08/13/2024 05:59 AM [facility]
--- NOTE | ~2024-08-13 | XR_ITS ---
EXAMINATION: XR CHEST CLINICAL INFORMATION: NG tube placement COMPARISON: X-ray dated August 10, 2024 TECHNIQUE: Frontal view of the chest was obtained. FINDINGS: The NG tube is in the mediastinum and ends below the left hemidiaphragm in the left upper quadrant abdomen. Low lung volume. Linear opacities both lower hemithoraces. Indistinct margins in the perihilar region. No pneumothorax. No pleural effusion. Heart silhouette appears unchanged. Gas-filled stomach. XR/XR chest 1V IMPRESSION: NG tube probably in the stomach. Electronically signed by: Alexis Alan MD 08/13/2024 07:08 AM [facility]
[2024-08-13 01:53] LABS: MANUAL DIFF FLAG NO
[2024-08-13 01:54] LABS: Basophils Percent Auto 0.3 % (0-2); Eosinophils Absolute Auto 0.3 X10*3/uL (0.0-0.4); Eosinophils Percent Auto 2.4 % (0-4); Hematocrit 41.3 % (42.0-52.0); Hemoglobin 14.1 g/dl (14.0-18.0); Imm Gran Abs Auto 0.08 X10*3/uL (0.00-0.03); Imm Gran Pct Auto 0.7 % (0.0-0.4); Lymphocytes Absolute Auto 0.6 X10*3/uL (1.2-4.9); Lymphocytes Percent Auto 5.3 % (20-40); Mean Corpuscular HGB Conc 34.1 g/dl (31.0-36.0); Mean Corpuscular Hemoglobin 29.7 pg (27.0-33.0); Mean Corpuscular Volume 87.1 fL (80.0-98.0); Mean Platelet Volume 9.3 fL (9.4-12.4); Monocytes Percent Auto 8.2 % (2-11); Neutrophils Absolute Auto 9.7 x10*3/uL (2.0-8.3); Neutrophils Percent Auto 83.1 % (45-73); Platelet Count 327 X10*3/uL (160-400); Red Blood Count 4.74 X10*6/uL (4.60-5.80); Red Cell Distribution Width 13.2 % (11.0-16.0); White Blood Count 11.7 X10*3/uL (4.8-10.8)
[2024-08-13 02:10] LABS: Alanine Aminotransferase 14 U/L (0-40); Albumin Level 3.9 g/dL (3.5-5.0); Alkaline Phosphatase 65 U/L (39-117); Anion Gap 18 (12-20); Aspartate Amino Transferase 20 U/L (5-37); Bilirubin Total 0.7 mg/dL (0.0-1.0); Blood Urea Nitrogen 9 mg/dL (9-16); Calcium 9.7 mg/dL (8.4-10.2); Carbon Dioxide 26 mmol/L (22-29); Chloride 91 mmol/L (96-108); Creatinine Clr Calc Pharmacy 159.2; Estimated Glomerular Filt Rate > 60; Glucose Random 117 mg/dL (60-115); Lipase 11 U/L (8-78); Potassium 3.6 mmol/L (3.3-5.1); Sodium 131 mmol/L (135-145); Total Protein 7.1 g/dL (6.5-8.0)
--- NOTE | 2024-08-13 02:20 | MHC.EDTECH ---
pt changed over into hospital gown and placed on environmental monitoring technician, call light given for safety, pt sat up for comfort and lab work completed in triage
--- NOTE | 2024-08-13 02:40 | ED_ITS ---
HPI - Abdominal Pain General Chief Complaint: Abdominal Pain Stated Complaint: fever, n/v Time Seen by Provider: 08/13/24 02:21 Source: patient and family Mode of arrival: ambulatory Limitations: no limitations History of Present Illness ED Provider: DR. Benjamin HPI narrative: this is a 58-year-old male with past medical history asthma, deafness, rectal prolapse, patient had abdominal pain on 08/04 presented to the ED with abdominal pain turned out to be a concern of malignancy and colonic mass, s/p colectomy with primary anastomosis by Dr. Fischer patient was discharged from the hospital today return for increased intra-abdominal pain and nausea and vomiting. Related Data Home Medications ?Medication ?Instructions ?Recorded ?Confirmed acetaminophen 325 mg tablet 650 mg PO BID PRN Pain 08/04/24 08/04/24 Previous Rx's ?Medication ?Instructions ?Recorded hydrocodone 5 mg-acetaminophen 325 1 tab PO Q4-6H PRN pain #30 tabs 08/11/24 mg tablet amoxicillin 875 mg-potassium 1 tab PO Q12H #8 tabs 08/12/24 clavulanate 125 mg tablet famotidine 20 mg tablet 20 mg PO BID #60 tabs 08/12/24 Allergies Allergy/AdvReac Type Severity Reaction Status Date / Time No Known Allergies Allergy Verified 08/13/24 01:27 Review of Systems Review of Systems all other systems are reviewed and are negative Constitutional: Reports as per HPI and Reports no additional constitutional complaints Eyes: Reports as per HPI and Reports no additional eye complaints Reports system reviewed and no additional complaints, except as documented Cardiovascular: Reports as per HPI and Reports no additional cardiovascular complaints Respiratory: Reports as per HPI and Reports no additional respiratory complaints Gastrointestinal: Reports as per HPI and Reports no additional gastrointestinal complaints Genitourinary: Reports no additional female genitourinary complaints Musculoskeletal: Reports no additional musculoskeletal complaints Skin/Breast: Reports system reviewed and no additional complaints, except as docu Psychiatric: Reports no additional psychiatric complaints Endocrine: Reports no additional endocrine complaints Hematologic/Lymphatic: Reports no additional hematologic/lymphatic complaints Allergic/Immunologic: Reports no additional allergic/immunologic complaints Reports system reviewed and no additional complaints, except as documented and Reports Abnormal speech present PMFSH Past Medical History Medical History Mild intermittent asthma Congenital deafness Hard of hearing Surgical History No pertinent past surgical history Family History Family History Other Family history unknown Social History Social History Household Members: Significant Other Housing: House Do you presently have visiting nurse or other home services: No Alcohol intake: never Patient Tobacco Use Status: Current everyday Tobacco user Tobacco use type: Cigarette Cigarette Packs Per Day: 0.5 Cigarettes Per Day: 10.0 e-Cigarette/Vaping Use: Former Use Second Hand Smoke Exposure: No Advance Directives: No Advance Directives Information Provided: No Do you have a plan to hurt others: No Plan service: No Physical Exam ED Vital Signs: Vital Signs - 24 hr 08/13/24 01:25 08/13/24 02:02 08/13/24 04:50 Temperature 98.2 F 98.0 F 98.8 F Pulse Rate 84 88 84 Respiratory Rate 16 18 19 Blood Pressure 148/91 H 147/95 H 141/91 H Pulse Oximetry 96 92 92 Oxygen Delivery Method Room Air Room Air Room Air BMI result Body Mass Index 35.6 Vital signs have been reviewed and appear to be correct. Blood pressure elevated. Heart rate normal. Respiratory rate normal. Temperature normal. Oxygen saturation normal. Appearance: Alert. Oriented X3. No acute distress. Head: Normal external exam. Normocephalic. Atraumatic. No [place] signs noted. No raccoon eyes noted Eyes: PERRLA. EOMI. Conjunctiva and sclera normal. Eyelids normal. ENT: TM's Normal. Pharynx normal. Uvula midline. Moist mucous membranes. No trismus noted. No drooling noted. No muffled voice noted. Neck: Normal inspection. Neck supple. FROM. No adenopathy. Thyroid Normal. No meningeal signs. No neck mass noted. CVS: Normal heart rate and rhythm. Heart sound normal. No murmurs noted. Pulses normal throughout. Respiratory: No respiratory distress. Painless inspiration. Breath sounds normal. No wheezes/rales/rhonchi noted. Chest nontender. No accessory muscle usage noted or decreased air movement noted. Abdomen: Soft , mid abdominal incision is intact with no. Bowel sounds normal in all 4 quadrants. No distention noted. No organomegaly noted. No visible injury noted. Back: No CVA tenderness. Full range of motion noted. Skin: Skin warm and dry. Normal skin color. Normal skin turgor. No rashes/lesions/lacerations noted. Extremities: No lower extremity edema. Extremities exhibit normal range of motion. Extremities nontender. Neuro: Oriented X 3. Cranial nerve exam: II-XII are grossly intact No motor deficit. No sensory deficit. Reflexes normal. Course Reevaluation(s) Reevaluation #1: CT abdomen pelvis showing high-grade small-bowel obstruction case discussed with Dr. Mcclain who will let Dr. Amado connor about the case to see him at 07:00. NG tube placement. Time: 06:13 Medical Decision Making Differential Diagnosis Differential Diagnoses: The differential diagnosis associated with the presentation includes (Small-bowel obstruction, postoperative abscess formation, electrolyte derangement, severe anemia.) Admission/Observation Consideration of admission/observation: Escalation of care including admission/observation considered Consult Healthcare Provider Management of the patient was discussed with: Engineered Wood Designer ( Dr. Mcclain) Lab Data MDM Lab Attestation statement: I reviewed the patient's lab results. 08/13/24 01:49 08/13/24 01:49 Labs: Lab Results 08/13/24 08/13/24 Range/Units 01:49 05:51 WBC 11.7 H (4.8-10.8) X10*3/uL RBC 4.74 (4.60-5.80) X10*6/uL Hgb 14.1 (14.0-18.0) g/dl Hct 41.3 L (42.0-52.0) % MCV 87.1 (80.0-98.0) fL MCH 29.7 (27.0-33.0) pg MCHC 34.1 (31.0-36.0) g/dl RDW 13.2 (11.0-16.0) % Plt Count 327 (160-400) X10*3/uL MPV 9.3 L (9.4-12.4) fL Immature Gran % (Auto) 0.7 H (0.0-0.4) % Neut % (Auto) 83.1 H (45-73) % Lymph % (Auto) 5.3 L (20-40) % [place] % (Auto) 8.2 (2-11) % Eos % (Auto) 2.4 (0-4) % Baso % (Auto) 0.3 (0-2) % Lymph # (Auto) 0.6 L (1.2-4.9) X10*3/uL [place] # (Auto) 1.0 (0.1-1.2) X10*3/uL Eos # (Auto) 0.3 (0.0-0.4) X10*3/uL Baso # (Auto) 0.0 (0.0-0.2) X10*3/uL Abs Immat Gran (auto) 0.08 H (0.00-0.03) X10*3/uL Absolute Neuts (auto) 9.7 H (2.0-8.3) x10*3/uL Absolute Nucleated RBC 0.000 (0.0-0.012) X10*3/uL Nucleated RBC % (auto) 0.0 (0.0-0.2) /100WBC Sodium 131 L (135-145) mmol/L Potassium 3.6 (3.3-5.1) mmol/L Chloride 91 L (96-108) mmol/L Carbon Dioxide 26 (22-29) mmol/L Anion Gap 18 (12-20) BUN 9 (9-16) mg/dL Creatinine 0.71 (0.5-1.4) mg/dL Estim Creat Clear Calc 159.2 Estimated GFR > 60 Random Glucose 117 H (60-115) mg/dL Calcium 9.7 (8.4-10.2) mg/dL Total Bilirubin 0.7 (0.0-1.0) mg/dL AST 20 (5-37) U/L ALT 14 (0-40) U/L Alkaline Phosphatase 65 (39-117) U/L Total Protein 7.1 (6.5-8.0) g/dL Albumin 3.9 (3.5-5.0) g/dL Lipase 11 (8-78) U/L Urine Color Yellow Urine Appearance Clear Urine pH 6.5 (5.0-9.0) Ur Specific [place] >= 1.030 H (1.005-1.025) Urine Protein 30 (1+) H (Neg-Trace) mg/dL Urine Glucose (UA) Negative (Negative) mg/dL Urine Ketones 40 (Negative) mg/dL Urine Blood Trace H (Negative) Urine Nitrite Negative (Negative) Ur Leukocyte Esterase Negative (Negative) Urine RBC 3-5 H (0-2) /HPF Urine WBC 0-5 (0-5) /HPF Ur Squamous Epith Cells 0-2 (0-2) /HPF Urine Bacteria None Seen (None Seen) Hyaline Casts 0-2 (0-2) /LPF Independent Interpretation I performed an independent interpretation of an: CT Scan ( abdomen and pelvis:*High-grade small bowel obstruction with a transition between dilated and nondilated small bowel within the distal ileum. Findings may be secondary to otherwise nonvisualized adhesions. No discrete internal hernia or abdominal wall intestinal hernia identified. No twisting of ) Radiology Impression Discussion of test interpretation with radiology: I have reviewed the radiologist's reading. Medications Administered Discontinued Medications Generic Name Dose Route Start Last Admin Trade Name Freq PRN Reason Stop Dose Admin Sodium Chloride 1,000 mls @ 999 mls/hr 08/13/24 02:44 08/13/24 05:27 Ns IV 08/13/24 03:44 Infused .Q1H1M ONE Infusion Iohexol 100 ml 08/13/24 04:45 08/13/24 04:46 Iohexol 350 Mg/Ml 100 Ml Infus..Btl IV 08/13/24 04:46 100 ml ONCE ONE Administration Morphine Sulfate 1 mg 08/13/24 02:44 08/13/24 03:36 Morphine Sulfate 2 Mg/Ml Cartridge IVPUSH 08/13/24 02:45 1 mg ONCE ONE Administration Protocol Ondansetron HCl 4 mg 08/13/24 02:44 08/13/24 03:36 Ondansetron Hcl 4 Mg/2 Ml Vial IVPUSH 08/13/24 02:45 4 mg ONCE ONE Administration Discharge Plan Discharge Clinical Impression: Small bowel obstruction Patient Disposition: Admitted As Inpatient Print Language: [place]
[2024-08-13] MEDS: ondansetron HCL 4 MG/2 ML VIAL IVPUSH ×2 (03:36→16:27)
[2024-08-13] MEDS: 0.9 % Sodium Chloride 1,000 ML 999 ML IV (03:36)
[2024-08-13] MEDS: Morphine Sulfate 2 MG/ML CARTRIDGE 1 MG IVPUSH (03:36)
[2024-08-13] MEDS: iohexoL 350 MG/ML 100 ML INFUS..BTL IV (04:46)
[2024-08-13 05:58] LABS: Appearance Urine Clear; Color Urine Yellow; Glucose Urine UA Negative (Negative); Leukocyte Esterase Urine Negative (Negative); Nitrite Urine Negative (Negative); PH 6.5 (5.0-9.0); Specific Gravity - Urine >= 1.030 (1.005-1.025); UMIC TRIGGER UACC YES; Urine Blood Trace (Negative); Urine Ketones 40 mg/dL (Negative); Urine Protein 30 (1+) mg/dL (Neg-Trace)
[2024-08-13 06:03] LABS: Bacteria Urine None Seen (None Seen); Hyaline Casts Urine 0-2 /LPF (0-2); Squamous Epithelial Cell Urine 0-2 /HPF (0-2); WBC Urine 0-5 /HPF (0-5)
--- NOTE | 2024-08-13 07:47 | PC.NURSE ---
resting quietly. NG tube continues to empty gastric contents. Aprox 500ml in vacutainer at this time. partner at bedside. Awaiting admission and surgical consult.
--- NOTE | 2024-08-13 08:15 | PC.NURSE ---
total of 800ml stomach contents have emptied.
--- NOTE | 2024-08-13 08:47 | PHA.MEDREC ---
Pharmacy Consult ? Medication Reconciliation Pharmacy has completed the medication reconciliation. Spoke to patient's girlfriend Nela at bedside and she knows all of patient's medications. Patient was discharged yesterday 08/12/24 with famotidine, augmentin and norco but he has only started taking the augmentin last night (hasn't started the famotidine and norco yet). Patient does have a albuterol inhaler to use as needed and acetaminophen taken as needed.
[2024-08-13] MEDS: Acetaminophen 1,000 MG/100 ML PIGGYBACK 400 MG IV ×3 (09:14→20:33)
[2024-08-13] MEDS: Lactated Ringers 1,000 ML 100 ML IVCONT ×2 (10:19→20:37)
[2024-08-13] MEDS: Piperacillin Sodium/Tazobactam 4.5 GM in 0.9 % Sodium Chloride 100 ML IV ×3 (10:21→21:30)
--- NOTE | 2024-08-13 14:23 | PM.HPGS ---
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 Was initially admitted to the medical service and underwent workup for signs and symptoms of partial small bowel obstruction and abdominal pain. Patient's postoperative course was slow but steady improvement. He had persistent ileus but was tolerating liquids and was passing flatus and stool. He was discharged home . Because of recurrence of his nausea vomiting he re-presented to the emergency department and workup demonstrated findings consistent with either a partial small-bowel obstruction or ileus. Patient was well known to the Surgical Service. On admission white count was 11.7. PMFSH Past Medical History Medical History Mild intermittent asthma Congenital deafness Hard of hearing Family History Family History Other Family history unknown Surgical History Surgical History No pertinent past surgical history Social History Social History Household Members: Significant Other Housing: House Do you presently have visiting nurse or other home services: No Alcohol intake: never Patient Tobacco Use Status: Current someday Tobacco user Tobacco use type: Cigarette Cigarette Packs Per Day: 0.5 Cigarettes Per Day: 10.0 Smoked in Last 30 Days: No e-Cigarette/Vaping Use: Former Use Patient Interested in Nicotine Replacement: No Patient Given Instructions on How to Stop Smoking: No Second Hand Smoke Exposure: No Use of substances other than those prescribed or required for medical reasons: No Currently Displaying Signs/Symptoms of Drug Intoxication Withdrawal: No Any prior treatment program specific to substance use: No Have you been hit, kicked, punched, or otherwise hurt by someone within the past year? If so, by whom?: No Do you feel safe in your current relationship?: Yes Is there a partner from a previous relationship who is making you feel unsafe now?: No Are you made to feel afraid or neglected: No Advance Directives: No Advance Directives Information Provided: No Do you have a plan to hurt others: No Plan Recently lost weight without trying: No Nutrition Risks: No Nutritional Risk Poor oral hygiene: No service: No Meds Allergies Allergy/AdvReac Type Severity Reaction Status Date / Time No Known Allergies Allergy Verified 08/13/24 01:27 Active Medications: Current Medications Enoxaparin Sodium (Enoxaparin Sodium 40 Mg/0.4 Ml Syringe) 40 mg SUBCUT Q24H [facility] Hydromorphone HCl (Hydromorphone Hcl 1 Mg/Ml Syringe) 0.5 mg IVPUSH Q4H PRN; Protocol PRN Reason: Pain, Severe (Pain Scale 7-10) Lactated Ringer's (Lr) 1,000 mls @ 100 mls/hr IVCONT .Q10H [facility] Last Admin: 08/13/24 10:19 Dose: 100 mls/hr Acetaminophen (Ofirmev) 1,000 mg in 100 mls @ 400 mls/hr IV Q6H [facility] Last Infusion: 08/13/24 14:16 Dose: Infused Piperacillin Sod/Tazobactam (Sod 4.5 gm/ Sodium Chloride) 100 mls @ 200 mls/hr IV Q6H [facility] Last Infusion: 08/13/24 11:18 Dose: Infused Ondansetron HCl (Ondansetron Hcl 4 Mg/2 Ml Vial) 4 mg IVPUSH Q8H PRN PRN Reason: Nausea and Vomiting Sodium Chloride (0.9 % Sodium Chloride Flush 3 Ml Syringe) 3 ml IVFLUSH QSHIFT [facility] Home Medications ?Medication ?Instructions ?Recorded ?Confirmed ?Last Taken ?Type acetaminophen 325 mg tablet 650 mg PO BID PRN Pain 08/04/24 08/13/24 Unknown History albuterol sulfate 90 mcg/actuation 2 puff inhalation Q4H PRN 08/13/24 08/13/24 Unknown History aerosol inhaler Shortness Of Breath Or Wheezing Physical Exam Vital Signs: Vital Signs: Last Vital Signs Temp 98.1 F 08/13/24 09:59 Pulse 76 08/13/24 09:59 Resp 18 08/13/24 09:59 BP 151/86 H 08/13/24 09:59 Pulse Ox 90 L 08/13/24 09:59 O2 Del Method Room Air 08/13/24 09:59 BMI result Body Mass Index 35.6 Const: Other: Patient was alert, conversant. NG tube in place with minimal gastric output. His significant other was also present during evaluation GI: Other: Abdomen is moderately distended. Incision is clean dry and intact. Patient has minimal abdominal tenderness. Appropriate incisional discomfort. No evidence of any guarding, rebound, or rigidity. Results Results Labs: Short CBC 08/13/24 Range/Units 01:49 WBC 11.7 H (4.8-10.8) X10*3/uL Hgb 14.1 (14.0-18.0) g/dl Hct 41.3 L (42.0-52.0) % Plt Count 327 (160-400) X10*3/uL BMP 08/13/24 01:49 Sodium 131 L Potassium 3.6 Chloride 91 L Carbon Dioxide 26 BUN 9 Creatinine 0.71 Calcium 9.7 Liver Function 08/13/24 Range/Units 01:49 Total Bilirubin 0.7 (0.0-1.0) mg/dL AST 20 (5-37) U/L ALT 14 (0-40) U/L Alkaline Phosphatase 65 (39-117) U/L Albumin 3.9 (3.5-5.0) g/dL Urine 08/13/24 Range/Units 05:51 Urine Color Yellow Urine Appearance Clear Urine pH 6.5 (5.0-9.0) Ur Specific [place] >= 1.030 H (1.005-1.025) Urine Protein 30 (1+) H (Neg-Trace) mg/dL Urine Glucose (UA) Negative (Negative) mg/dL Assessment and Plan (1) Abdominal pain: Qualifiers: Abdominal location: left upper quadrant Qualified Code(s): R10.12 - Left upper quadrant pain Status: Acute (2) Ileus following gastrointestinal surgery: Status: Acute Plan Current plan is to continue conservative therapy. Patient was NG tube in place which has relieved some of his nausea vomiting symptoms. He is hungry but will be only on ice chips for now. Patient will undergo a small bowel follow-through to either confirm or clear the idea of a small bowel complete obstruction. In the meantime, general restorative measures will be undertaken including following I's and O's, serial exams and labs, encourage out of bed, and incentive spirometry. Plan was discussed with the patient and he is in agreement. All questions answered. Quality Stroke Does the patient have a stroke diagnosis?: No VTE Prior VTE?: No VTE Risk Level:: Medical - moderate - high VTE Device Contraindication: N/A - Device Ordered VTE Drug Contraindication: N/A - Med Ordered Procedures Date of Service Date of Service: 08/13/24
[2024-08-13] MEDS: 0.9 % Sodium Chloride Flush 3 ML SYRINGE IVFLUSH (14:31)
--- NOTE | 2024-08-13 14:50 | MHC.CM.PN ---
PT LIVES WITH HIS S/O AND IS INDEPENDENT WITH CARE HE HAS NO DME AND NO SERVICES NO HCP PCP: MARTHA BARTLETT DCP: HOME NO SERVICES VIA PRIVATE TRANSPORT
[2024-08-13] MEDS: Diatrizoate Meglumine, Sodium 120 ML SOLUTION PO (17:11)
[2024-08-13] MEDS: HYDROmorphone HCl 1 MG/ML SYRINGE 0.5 MG IVPUSH ×2 (17:24→21:29)
--- NOTE | 2024-08-13 17:29 | PC.NURSE ---
Radiology delivered 120ml Gastrografin to bedside. This RN adminstered via NGT, pt did not tolerate well, became nauseous, zofran IV administered, no vomiting. Pt able to tolerate and finished gastrografin at 4:40pm, NGT clamped. RAdiology came to bedside for imaging.
[2024-08-14] MEDS: ondansetron HCL 4 MG/2 ML VIAL IVPUSH (00:14)
[2024-08-14] MEDS: Acetaminophen 1,000 MG/100 ML PIGGYBACK 400 MG IV ×4 (02:09→20:13)
[2024-08-14] MEDS: HYDROmorphone HCl 1 MG/ML SYRINGE 0.5 MG IVPUSH (02:26)
[2024-08-14] MEDS: Piperacillin Sodium/Tazobactam 4.5 GM in 0.9 % Sodium Chloride 100 ML IV ×4 (02:27→21:01)
[2024-08-14 03:36] VITALS: BP 135/81; PULSE 73; RESP 20; TEMP 36.2; O2SAT 96
[2024-08-14 07:27] VITALS: BP 140/88; PULSE 74; RESP 18; TEMP 36.4; O2SAT 95
[2024-08-14 07:34] LABS: Alanine Aminotransferase 25 U/L (0-40); Albumin Level 3.9 g/dL (3.5-5.0); Alkaline Phosphatase 80 U/L (39-117); Anion Gap 19 (12-20); Aspartate Amino Transferase 30 U/L (5-37); Bilirubin Total 0.5 mg/dL (0.0-1.0); Blood Urea Nitrogen 12 mg/dL (9-16); Calcium 9.9 mg/dL (8.4-10.2); Carbon Dioxide 29 mmol/L (22-29); Chloride 92 mmol/L (96-108); Creatinine Clr Calc Pharmacy 141.3; Estimated Glomerular Filt Rate > 60; Glucose Random 102 mg/dL (60-115); Potassium 3.4 mmol/L (3.3-5.1); Sodium 137 mmol/L (135-145); Total Protein 7.2 g/dL (6.5-8.0)
[2024-08-14] MEDS: Lactated Ringers 1,000 ML 100 ML IVCONT ×2 (08:24→19:36)
[2024-08-14] MEDS: Enoxaparin Sodium 40 MG/0.4 ML SYRINGE SUBCUT (08:24)
--- NOTE | 2024-08-14 10:04 | P.PNGS_ITS ---
Subjective Subjective Date of Service: 08/14/24 Interval history: Patient has minimal incisional discomfort. He still is bloating. Patient states he is passing flatus and stool. NG tube with moderate output Physical Exam 2 Vital Signs: Vital Signs: Last Vital Signs Temp 97.5 F 08/14/24 07:27 Pulse 74 08/14/24 07:27 Resp 18 08/14/24 07:27 BP 140/88 H 08/14/24 07:27 Pulse Ox 95 08/14/24 07:27 O2 Del Method Room Air 08/14/24 07:27 BMI result Body Mass Index 35.6 GI: Other: Abdomen corpulent, distended. Incision clean dry and intact healing well mild incisional discomfort. No evidence of any guarding, rebound, or rigidity. Objective Data Active Medications Enoxaparin Sodium (Enoxaparin Sodium 40 Mg/0.4 Ml Syringe) 40 mg SUBCUT Q24H [facility] Last Admin: 08/14/24 08:24 Dose: 40 mg Documented By: SHIRA Hydromorphone HCl (Hydromorphone Hcl 1 Mg/Ml Syringe) 0.5 mg IVPUSH Q4H PRN; Protocol PRN Reason: Pain, Severe (Pain Scale 7-10) Last Admin: 08/14/24 02:26 Dose: 0.5 mg Documented By: DERIC Lactated Ringer's (Lr) 1,000 mls @ 100 mls/hr IVCONT .Q10H [facility] Last Admin: 08/14/24 08:24 Dose: 100 mls/hr Documented By: SHIRA Acetaminophen (Ofirmev) 1,000 mg in 100 mls @ 400 mls/hr IV Q6H [facility] Last Infusion: 08/14/24 09:18 Dose: Infused Documented By: SHIRA Piperacillin Sod/Tazobactam (Sod 4.5 gm/ Sodium Chloride) 100 mls @ 200 mls/hr IV Q6H [facility] Last Admin: 08/14/24 09:19 Dose: 200 mls/hr Documented By: SHIRA Ondansetron HCl (Ondansetron Hcl 4 Mg/2 Ml Vial) 4 mg IVPUSH Q8H PRN PRN Reason: Nausea and Vomiting Last Admin: 08/14/24 00:14 Dose: 4 mg Documented By: DERIC Sodium Chloride (0.9 % Sodium Chloride Flush 3 Ml Syringe) 3 ml IVFLUSH QSHIFT [facility] Last Admin: 08/14/24 07:46 Dose: Not Given Documented By: SHIRA Non-Admin Reason: IV Running Labs 08/13/24 01:49 08/14/24 06:46 Labs: Laboratory Results - last 24 hr 08/14/24 06:46 Hold Purple Top SEE NOTE Anion Gap 19 Estim Creat Clear Calc 141.3 Estimated GFR > 60 Random Glucose 102 Calcium 9.9 Total Bilirubin 0.5 AST 30 ALT 25 Alkaline Phosphatase 80 Total Protein 7.2 Albumin 3.9 Procedures Date of Service Date of Service: 08/14/24 Progress Note: A&P Assessment and plan (1) Ileus following gastrointestinal surgery: Status: Acute Plan Small-bowel follow-through jennifer CESAR pending. In the meantime, continue current plan of NG tube, I's and O's, sips ice chips, encourage incentive spirometry, pain control Time Spent With Patient Time: Total time managing care of this patient today ____ minutes. Quality Stroke Does the patient have a stroke diagnosis?: No VTE Prior VTE?: No VTE Risk Level:: Medical - moderate - high VTE Device Contraindication: N/A - Device Ordered VTE Drug Contraindication: N/A - Med Ordered
[2024-08-14 15:18] VITALS: BP 124/72; PULSE 73; RESP 20; TEMP 36.6; O2SAT 92
[2024-08-14] MEDS: 0.9 % Sodium Chloride Flush 3 ML SYRINGE IVFLUSH (15:18)
[2024-08-14 19:05] VITALS: BP 127/73; PULSE 74; RESP 20; TEMP 36.4; O2SAT 92
[2024-08-15] MEDS: ondansetron HCL 4 MG/2 ML VIAL IVPUSH (00:04)
[2024-08-15] MEDS: Acetaminophen 1,000 MG/100 ML PIGGYBACK 400 MG IV ×4 (01:53→20:20)
[2024-08-15] MEDS: Piperacillin Sodium/Tazobactam 4.5 GM in 0.9 % Sodium Chloride 100 ML IV ×3 (02:45→14:45)
[2024-08-15 03:42] VITALS: BP 133/77; PULSE 63; RESP 18; TEMP 36.2; O2SAT 93
[2024-08-15] MEDS: Lactated Ringers 1,000 ML 100 ML IVCONT ×2 (05:56→15:38)
[2024-08-15 07:58] VITALS: BP 130/62; PULSE 72; RESP 18; TEMP 36
[2024-08-15] MEDS: Enoxaparin Sodium 40 MG/0.4 ML SYRINGE SUBCUT (08:26)
--- NOTE | 2024-08-15 12:47 | PC.NURSE ---
NG tube disconnected from suction and put to gravity per Dr Fischer.
[2024-08-15] MEDS: 0.9 % Sodium Chloride Flush 3 ML SYRINGE IVFLUSH ×2 (14:51→20:21)
--- NOTE | 2024-08-15 15:20 | PC.NURSE ---
Per Dr Amado perdomo to have [place] ice and popsicles as tolerated
[2024-08-15 15:36] VITALS: BP 117/76; PULSE 67; RESP 20; TEMP 36.6; O2SAT 92
[2024-08-15] MEDS: Pantoprazole Sodium 40 MG/10 ML VIAL IVPUSH (15:38)
--- NOTE | 2024-08-15 15:51 | PM.PNGS ---
Subjective Subjective Date of Service: 08/15/24 Interval history: Patient was evaluated in presence of his mother and his significant other. He is feeling much better. He is still passing some flatus and occasional loose stool. He his NG tube has been to gravity and he is tolerating this. Overall he thinks he is feeling much better. Physical Exam Vital Signs: Vital Signs: Last Vital Signs Temp 97.8 F 08/15/24 15:36 Pulse 67 08/15/24 15:36 Resp 20 08/15/24 15:36 BP 117/76 08/15/24 15:36 Pulse Ox 92 08/15/24 15:36 O2 Del Method Room Air 08/15/24 15:36 BMI result Body Mass Index 35.6 GI: Other: Abdomen moderately distended. Incision clean dry and intact. Incisional tenderness. No evidence of any guarding, rebound, rigidity. Objective Data Active Medications Enoxaparin Sodium (Enoxaparin Sodium 40 Mg/0.4 Ml Syringe) 40 mg SUBCUT Q24H [facility] Last Admin: 08/15/24 08:26 Dose: 40 mg Documented By: SHIRA Hydromorphone HCl (Hydromorphone Hcl 1 Mg/Ml Syringe) 0.5 mg IVPUSH Q4H PRN; Protocol PRN Reason: Pain, Severe (Pain Scale 7-10) Last Admin: 08/14/24 02:26 Dose: 0.5 mg Documented By: DERIC Acetaminophen (Ofirmev) 1,000 mg in 100 mls @ 400 mls/hr IV Q6H [facility] Last Infusion: 08/15/24 14:40 Dose: Infused Documented By: SHIRA Lactated Ringer's (Lr) 1,000 mls @ 100 mls/hr IVCONT .Q10H [facility] Last Admin: 08/15/24 15:38 Dose: 100 mls/hr Documented By: SHIRA Ondansetron HCl (Ondansetron Hcl 4 Mg/2 Ml Vial) 4 mg IVPUSH Q8H PRN PRN Reason: Nausea and Vomiting Last Admin: 08/15/24 00:04 Dose: 4 mg Documented By: DERIC Pantoprazole Sodium (Pantoprazole Sodium 40 Mg/10 Ml Vial) 40 mg IVPUSH BID@0630,1630 [facility] Last Admin: 08/15/24 15:38 Dose: 40 mg Documented By: SHIRA Sodium Chloride (0.9 % Sodium Chloride Flush 3 Ml Syringe) 3 ml IVFLUSH QSHIFT [facility] Last Admin: 08/15/24 14:51 Dose: 3 ml Documented By: SHIRA Labs 08/13/24 01:49 08/14/24 06:46 Procedures Date of Service Date of Service: 08/15/24 Progress Note: A&P Assessment and plan (1) Postop check: Status: Acute Plan Discussed with the patient and his family that the current plan is to keep his NG tube to gravity and see how he does overnight. My concern is that if we remove the NG tube and has to be reinserted he will not be very happy about this I would rather keep it in an extra day then remove it prematurely. Patient understands. The meantime he can have ice chips. He has been getting up out of bed. He would like to shower which hopefully can happen tomorrow when the NG tube was removed. All questions answered. Time Spent With Patient Time: Total time managing care of this patient today ____ minutes. Quality Stroke Does the patient have a stroke diagnosis?: No VTE Prior VTE?: No VTE Risk Level:: Medical - moderate - high VTE Device Contraindication: N/A - Device Ordered VTE Drug Contraindication: N/A - Med Ordered
[2024-08-15 19:24] VITALS: BP 142/74; PULSE 66; RESP 18; TEMP 36.4; O2SAT 91
[2024-08-15] MEDS: HYDROmorphone HCl 1 MG/ML SYRINGE 0.5 MG IVPUSH (20:17)
[2024-08-16] MEDS: Lactated Ringers 1,000 ML 100 ML IVCONT ×3 (01:34→21:30)
[2024-08-16] MEDS: Acetaminophen 1,000 MG/100 ML PIGGYBACK 400 MG IV ×4 (02:12→19:54)
[2024-08-16 03:19] VITALS: BP 133/74; PULSE 60; RESP 18; TEMP 36.1; O2SAT 96
[2024-08-16] MEDS: Pantoprazole Sodium 40 MG/10 ML VIAL IVPUSH ×2 (05:36→15:55)
[2024-08-16 07:38] VITALS: BP 126/69; PULSE 64; RESP 18; TEMP 36.4; O2SAT 92
--- NOTE | 2024-08-16 08:01 | PM.PNGS ---
Subjective Subjective Date of Service: 08/16/24 Interval history: NGT to gravity yesterday with scant output. Hooked up to suction this am with scant residual. He has been passing flatus and moving his bowels. He feels less distended. OOB and ambulating. Physical Exam Vital Signs: Vital Signs: Last Vital Signs Temp 97.6 F 08/16/24 07:38 Pulse 64 08/16/24 07:38 Resp 18 08/16/24 07:38 BP 126/69 08/16/24 07:38 Pulse Ox 92 08/16/24 07:38 O2 Del Method Room Air 08/16/24 07:38 BMI result Body Mass Index 35.6 Const: General: comfortable, no acute distress and alert Orientation/consciousness: patient oriented x3 Resp: Effort & Inspection: normal respiratory effort GI: Inspection: Yes distended (improved, soft) and Yes incision (clean) Palpation (GI): Soft to palpation, nontender and no guarding Percussion: Yes tympanic to percussion Skin: General skin exam: no rashes or lesions noted Neuro: General: patient oriented x3 and moves all extremities Objective Data Active Medications Albuterol Sulfate (Albuterol Sulfate 90 Mcg 8 Gm Inhaler) 2 puff INHALE Q4H PRN PRN Reason: Shortness Of Breath Or Wheezing Enoxaparin Sodium (Enoxaparin Sodium 40 Mg/0.4 Ml Syringe) 40 mg SUBCUT Q24H [facility] Last Admin: 08/15/24 08:26 Dose: 40 mg Documented By: SHIRA Hydromorphone HCl (Hydromorphone Hcl 1 Mg/Ml Syringe) 0.5 mg IVPUSH Q4H PRN; Protocol PRN Reason: Pain, Severe (Pain Scale 7-10) Last Admin: 08/15/24 20:17 Dose: 0.5 mg Documented By: PHILLIP Acetaminophen (Ofirmev) 1,000 mg in 100 mls @ 400 mls/hr IV Q6H [facility] Last Infusion: 08/16/24 02:27 Dose: Infused Documented By: PHILLIP Lactated Ringer's (Lr) 1,000 mls @ 100 mls/hr IVCONT .Q10H [facility] Last Admin: 08/16/24 01:34 Dose: 100 mls/hr Documented By: PHILLIP Ondansetron HCl (Ondansetron Hcl 4 Mg/2 Ml Vial) 4 mg IVPUSH Q8H PRN PRN Reason: Nausea and Vomiting Last Admin: 08/15/24 00:04 Dose: 4 mg Documented By: ODRISKevin Oxycodone HCl (Oxycodone Hcl Immed Release 5 Mg Tablet) 5 mg PO Q4H PRN PRN Reason: Pain, Moderate(Pain Scale 4-6) Pantoprazole Sodium (Pantoprazole Sodium 40 Mg/10 Ml Vial) 40 mg IVPUSH BID@0630,1630 [facility] Last Admin: 08/16/24 05:36 Dose: 40 mg Documented By: PHILLIP Sodium Chloride (0.9 % Sodium Chloride Flush 3 Ml Syringe) 3 ml IVFLUSH QSHIFT [facility] Last Admin: 08/15/24 20:21 Dose: 3 ml Documented By: PHILLIP Labs 08/13/24 01:49 08/14/24 06:46 Procedures Date of Service Date of Service: 08/16/24 Progress Note: A&P Assessment and plan (1) Ileus following gastrointestinal surgery: Status: Acute (2) Small bowel obstruction: Status: Acute Plan NGT with scant drainage. Has good evidence of GI function. Abd remains benign, softly distended, nontender. Will remove NGT, advance to clear liquids. Cont OOB/ambulation. Cont IV zosyn for PNA, last day. Home when tolerating solid diet. Time Spent With Patient Time: Total time managing care of this patient today ____ minutes. Quality Stroke Does the patient have a stroke diagnosis?: No VTE Prior VTE?: No VTE Risk Level:: Medical - moderate - high VTE Device Contraindication: N/A - Device Ordered VTE Drug Contraindication: N/A - Med Ordered
--- NOTE | 2024-08-16 08:04 | PC.NURSE ---
NGT d/c per SARAH Wiley. Pt tolerated well.
[2024-08-16] MEDS: Enoxaparin Sodium 40 MG/0.4 ML SYRINGE SUBCUT (08:15)
--- NOTE | 2024-08-16 13:42 | MHC.CM.PN ---
EMR REVIEWED. PER SURGERY NOTE, PT'S DIET IS BEING ADVANCED. CM WILL CONTINUE TO FOLLOW FOR ANY CHANGE TO DC PLAN/NEEDS.
--- NOTE | 2024-08-16 14:03 | PC.NURSE ---
Pt ambulating in [place] with 1A and walker. Able to tolerate clear liquid diet this morning and afternoon, +BS, denies N&V, pt moved bowels 2x this shift.
[2024-08-16 15:32] VITALS: BP 126/71; PULSE 76; RESP 16; TEMP 36.1; O2SAT 94
[2024-08-16 19:16] VITALS: BP 141/77; PULSE 68; RESP 16; TEMP 522.7; TEMP 973; O2SAT 94
[2024-08-17] MEDS: Acetaminophen 1,000 MG/100 ML PIGGYBACK 400 MG IV ×4 (02:49→19:41)
[2024-08-17 03:38] VITALS: BP 129/71; PULSE 59; RESP 16; TEMP 36.3; O2SAT 96
[2024-08-17] MEDS: Pantoprazole Sodium 40 MG/10 ML VIAL IVPUSH ×2 (06:04→16:36)
[2024-08-17 07:22] VITALS: BP 133/70; PULSE 66; RESP 18; TEMP 36.5; O2SAT 92
[2024-08-17] MEDS: Lactated Ringers 1,000 ML 100 ML IVCONT (07:22)
[2024-08-17] MEDS: Enoxaparin Sodium 40 MG/0.4 ML SYRINGE SUBCUT (07:22)
--- NOTE | 2024-08-17 07:51 | PM.PNGS ---
Subjective Subjective Date of Service: 08/17/24 Interval history: Tolerating clear liquids. Was able to sleep all night. Had some mild crampy right sided pain this morning. OOB and ambulating. Continues to pass flatus and move bowels. Physical Exam Vital Signs: Vital Signs: Last Vital Signs Temp 97.7 F 08/17/24 07:22 Pulse 66 08/17/24 07:22 Resp 18 08/17/24 07:22 BP 133/70 08/17/24 07:22 Pulse Ox 92 08/17/24 07:22 O2 Del Method Room Air 08/17/24 07:22 BMI result Body Mass Index 35.6 Const: General: comfortable, no acute distress and alert Orientation/consciousness: patient oriented x3 Resp: Effort & Inspection: normal respiratory effort GI: Inspection: Yes distended (softly ) and Yes incision (clean) Palpation (GI): Soft to palpation, Tenderness to palpation present (GI) (mild RLQ ) and no guarding Skin: General skin exam: no rashes or lesions noted Neuro: General: patient oriented x3 and moves all extremities Objective Data Active Medications Albuterol Sulfate (Albuterol Sulfate 90 Mcg 8 Gm Inhaler) 2 puff INHALE Q4H PRN PRN Reason: Shortness Of Breath Or Wheezing Enoxaparin Sodium (Enoxaparin Sodium 40 Mg/0.4 Ml Syringe) 40 mg SUBCUT Q24H [facility] Last Admin: 08/17/24 07:22 Dose: 40 mg Documented By: TOÑO Hydromorphone HCl (Hydromorphone Hcl 1 Mg/Ml Syringe) 0.5 mg IVPUSH Q4H PRN; Protocol PRN Reason: Pain, Severe (Pain Scale 7-10) Last Admin: 08/15/24 20:17 Dose: 0.5 mg Documented By: PHILLIP Acetaminophen (Ofirmev) 1,000 mg in 100 mls @ 400 mls/hr IV Q6H [facility] Last Infusion: 08/17/24 07:40 Dose: Infused Documented By: TOÑO Lactated Ringer's (Lr) 1,000 mls @ 100 mls/hr IVCONT .Q10H [facility] Last Admin: 08/17/24 07:22 Dose: 100 mls/hr Documented By: TOÑO Ondansetron HCl (Ondansetron Hcl 4 Mg/2 Ml Vial) 4 mg IVPUSH Q8H PRN PRN Reason: Nausea and Vomiting Last Admin: 08/15/24 00:04 Dose: 4 mg Documented By: [email or web address] Oxycodone HCl (Oxycodone Hcl Immed Release 5 Mg Tablet) 5 mg PO Q4H PRN PRN Reason: Pain, Moderate(Pain Scale 4-6) Pantoprazole Sodium (Pantoprazole Sodium 40 Mg/10 Ml Vial) 40 mg IVPUSH BID@0630,1630 [facility] Last Admin: 08/17/24 06:04 Dose: 40 mg Documented By: PHILLIP Sodium Chloride (0.9 % Sodium Chloride Flush 3 Ml Syringe) 3 ml IVFLUSH QSHIFT [facility] Last Admin: 08/17/24 07:23 Dose: Not Given Documented By: TOÑO Non-Admin Reason: IV Running Labs 08/13/24 01:49 08/14/24 06:46 Procedures Date of Service Date of Service: 08/17/24 Progress Note: A&P Assessment and plan (1) Ileus following gastrointestinal surgery: Status: Acute Plan Tolerating clear liquids. Continues with good GI function. Abd remains benign, softly distended, nontender, incision clean. Cont OOB/ambulation. Advance to solid diet. Home when tolerating solid diet. Time Spent With Patient Time: Total time managing care of this patient today ____ minutes. Quality Stroke Does the patient have a stroke diagnosis?: No VTE Prior VTE?: No VTE Risk Level:: Medical - moderate - high VTE Device Contraindication: N/A - Device Ordered VTE Drug Contraindication: N/A - Med Ordered
[2024-08-17 16:00] VITALS: BP 119/68; PULSE 65; RESP 20; TEMP 36.4; O2SAT 97
[2024-08-17] MEDS: 0.9 % Sodium Chloride Flush 3 ML SYRINGE IVFLUSH (19:38)
[2024-08-17 19:51] VITALS: BP 131/75; PULSE 76; RESP 20; TEMP 36.6; O2SAT 96
[2024-08-17] MEDS: ondansetron HCL 4 MG/2 ML VIAL IVPUSH (22:00)
[2024-08-18 03:16] VITALS: BP 129/72; PULSE 63; RESP 16; TEMP 36.6; O2SAT 95
[2024-08-18] MEDS: Acetaminophen 1,000 MG/100 ML PIGGYBACK 400 MG IV (03:17)
[2024-08-18] MEDS: Pantoprazole Sodium 40 MG/10 ML VIAL IVPUSH (06:10)
[2024-08-18 07:48] VITALS: BP 123/65; PULSE 57; RESP 18; TEMP 36.1; O2SAT 93
--- NOTE | 2024-08-18 08:40 | PM.PNGS ---
Subjective Subjective Date of Service: 08/18/24 Interval history: Patient was tolerating his regular diet. He is having bowel habits. He has minimal incisional discomfort. He has been up and around ambulating. He is doing quite well. He looks quite good. Physical Exam Vital Signs: Vital Signs: Last Vital Signs Temp 97.0 F 08/18/24 07:48 Pulse 57 08/18/24 07:48 Resp 18 08/18/24 07:48 BP 123/65 08/18/24 07:48 Pulse Ox 93 08/18/24 07:48 O2 Del Method Room Air 08/18/24 07:48 BMI result Body Mass Index 35.6 GI: Other: Abdomen corpulent, soft. Incision clean dry and intact. Mild incisional tenderness appropriate. Objective Data Active Medications Albuterol Sulfate (Albuterol Sulfate 90 Mcg 8 Gm Inhaler) 2 puff INHALE Q4H PRN PRN Reason: Shortness Of Breath Or Wheezing Enoxaparin Sodium (Enoxaparin Sodium 40 Mg/0.4 Ml Syringe) 40 mg SUBCUT Q24H [facility] Last Admin: 08/17/24 07:22 Dose: 40 mg Documented By: TOÑO Hydromorphone HCl (Hydromorphone Hcl 0.5 Mg/0.5 Ml Syringe) 0.5 mg IVPUSH Q4H PRN; Protocol PRN Reason: Pain, Severe (Pain Scale 7-10) Acetaminophen (Ofirmev) 1,000 mg in 100 mls @ 400 mls/hr IV Q6H [facility] Last Infusion: 08/18/24 03:37 Dose: Infused Documented By: HEATHER Ondansetron HCl (Ondansetron Hcl 4 Mg/2 Ml Vial) 4 mg IVPUSH Q8H PRN PRN Reason: Nausea and Vomiting Last Admin: 08/17/24 22:00 Dose: 4 mg Documented By: HEATHER Oxycodone HCl (Oxycodone Hcl Immed Release 5 Mg Tablet) 5 mg PO Q4H PRN PRN Reason: Pain, Moderate(Pain Scale 4-6) Pantoprazole Sodium (Pantoprazole Sodium 40 Mg/10 Ml Vial) 40 mg IVPUSH BID@0630,1630 [facility] Last Admin: 08/18/24 06:10 Dose: 40 mg Documented By: HEATHER Sodium Chloride (0.9 % Sodium Chloride Flush 3 Ml Syringe) 3 ml IVFLUSH QSHIFT [facility] Last Admin: 08/17/24 19:38 Dose: 3 ml Documented By: HEATHER Labs 08/13/24 01:49 08/14/24 06:46 Procedures Date of Service Date of Service: 08/18/24 Progress Note: A&P Assessment and plan (1) Ileus following gastrointestinal surgery: Status: Acute Plan Patient is doing quite well. Current plan is to discharge him home with discharge instructions reviewed. All questions answered. Patient will see me in follow-up next week. Time Spent With Patient Time: Total time managing care of this patient today ____ minutes. Quality Stroke Does the patient have a stroke diagnosis?: No VTE Prior VTE?: No VTE Risk Level:: Medical - moderate - high VTE Device Contraindication: N/A - Device Ordered VTE Drug Contraindication: N/A - Med Ordered
--- NOTE | 2024-08-18 08:42 | MHC.CM.PN ---
Patient medically cleared for dc home self care via private transport.
[2024-08-18] MEDS: Enoxaparin Sodium 40 MG/0.4 ML SYRINGE SUBCUT (09:26)
[2024-08-18 10:58] LABS: CDiff Gene PCR NEGATIVE (Negative)
--- NOTE | 2024-08-18 14:19 | PM.DS ---
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 Was initially admitted to the medical service and underwent workup for signs and symptoms of partial small bowel obstruction and abdominal pain. Patient's postoperative course was slow but steady improvement. He had persistent ileus but was tolerating liquids and was passing flatus and stool. He was discharged home . Because of recurrence of his nausea vomiting he re-presented to the emergency department and workup demonstrated findings consistent with either a partial small-bowel obstruction or ileus. Patient was well known to the Surgical Service. On admission white count was 11.7. HOSPITAL COURSE: He was admitted to the surgical service for further treatment. NGT was inserted and placed to low intermittent suction. He was started on IVF and IV zosyn to treat his PNA from diagnosed from his previous stay. He was ambulated and his activity was increased to promote GI function. The NGT output slowed and he began to pass gas consistently. NGT was placed to gravity. He had no further nausea, vomiting and minimal abd pain. His residual was low and the NGT was removed. His diet was advanced slowly as tolerated. He developed loose stools, c diff negative. The stools became more formed. On the day of discharge, he was tolerating a solid diet without nausea or vomiting. His abdominal pain was minimal He had good GI function. His abd was benign with clean incision, nontender. He was discharged to home on 08/18/24 off antibiotics. He is to follow up in the office in 1 week. He is to follow up with Dr. Naylor as an outpatient for his newly diagnosed colon CA. Status at Discharge Functional status at discharge: independent ambulation Overall status at discharge: patient is progressing back to baseline Time Attestation Discharge Coordination Time (in mins): 35 Quality: Safe Use of Opioids Does Pt have an Active Cancer Diagnosis on the Problem List?: Yes Opioid Measure Date for [facility] Report: 07/24/24 Opioid Measure Time for [facility] Report: 14:24 Quality: Stroke Does the patient have a stroke diagnosis?: No Physical Exam Vital Signs: Vital Signs: Last Vital Signs Temp 97.0 F 08/18/24 07:48 Pulse 57 08/18/24 07:48 Resp 18 08/18/24 07:48 BP 123/65 08/18/24 07:48 Pulse Ox 93 08/18/24 07:48 O2 Del Method Room Air 08/18/24 07:48 BMI result Body Mass Index 35.6 Const: General: comfortable, no acute distress and alert Orientation/consciousness: patient oriented x3 Resp: Effort & Inspection: normal respiratory effort GI: Inspection: Yes distended (mild, softly ) and Yes incision (clean) Palpation (GI): no guarding Skin: General skin exam: no rashes or lesions noted Neuro: General: patient oriented x3 and moves all extremities DS: Data Data Completed and Pending Completed studies during hospitalization [Text1]: Procedures Excision of Right Large Intestine, Via Natural or Artificial Opening Endoscopic, Diagnostic (08/04/24) Excision of Transverse Colon, Open Approach (08/04/24) Excision of Transverse Colon, Via Natural or Artificial Opening Endoscopic, Diagnostic (08/04/24) Introduction of Anesthetic Agent into Peripheral Nerves and Plexi, Percutaneous Approach (08/04/24) Discharge Plan Discharge Anticipated Discharge Date/Time: 08/18/24 12:51 Patient Disposition: Home, Self-Care Discharge Diagnosis: ileus Referrals: Sohail Naylor MD [Physician] - 2 Weeks Nikolai Fischer MD [Physician] - 1 Week Larisa Solis FNP [Primary Care Provider] - 1 Week Discharge Medications: Continued acetaminophen 325 mg Tablet 650 mg PO BID PRN (Reason: Pain) albuterol sulfate 90 mcg/actuation HFA aerosol inhaler 2 puff INHALATION Q4H PRN (Reason: Shortness Of Breath Or Wheezing) Discontinued amoxicillin-pot clavulanate 875-125 mg Tablet 1 tab PO Q12H Qty: 8 0RF Discharge Orders: Discharge Order (Routine); Ordered 08/18/24 Ordered By: Nikolai Fischer Diet: Advance to usual diet Activity on Discharge: No heavy lifting Stand Alone Forms: Patient Portal Discharge page Print Language: Vincentian Care Plan Goals: Return to baseline health and resume normal activities following recovery period. Health Concerns: s/p transverse colectomy colon CA ileus Plan of Treatment: Supportive F/u in office F/u outpatient oncology. Assessment: Improved Patient Instructions: Community Acquired Pneumonia (DC), Bowel Obstruction (DC), Ileus (DC) Discharge Date/Time: 08/18/24 13:52
== END 2024-08-18 13:52 | disposition home or self-care (01) | DRG 252 ==
LOC: HO.ED 06:13 → HO.EDOVER 08:20 → HO.S3 08:45
PROVIDERS: Admitting Provider Physician Assistant Surgical; Emergency Provider Emergency Medicine; PCP Nurse Practitioner Family; Visit Provider Surgery
DX: K91.89 Other postprocedural complications and disorders of digestive system (principal); K56.7 Ileus, unspecified; J45.20 Mild intermittent asthma, uncomplicated; Y83.2 Surgical operation with anastomosis, bypass or graft as the cause of abnormal reaction of the patient, or of later complication, without mention of misadventure at the time of the procedure; F17.210 Nicotine dependence, cigarettes, uncomplicated; Z71.6 Tobacco abuse counseling; Z79.899 Other long term (current) drug therapy
CPT/HCPCS: 36415; 71045; 74018; 74177; 74240; 74248; 80053; 81001; 83690; 85025; 87493; 99285; J0131; J1171; J1650; J2270; J2405; J2470; J2543; J7120; Q9967

== ENCOUNTER → 2024-08-13 06:08 | Outpatient (BNV) | payer BC, SELFPAY | PROVIDERS: Emergency Provider Emergency Medicine; Visit Provider Radiology Diagnostic Radiology | DX: R11.2 Nausea with vomiting, unspecified (principal); Z97.8 Presence of other specified devices; R50.9 Fever, unspecified | CPT/HCPCS: 71045 ==

== ENCOUNTER → 2024-08-13 08:13 | Outpatient (BNV) | payer BC, SELFPAY | PROVIDERS: Admitting Provider Physician Assistant Surgical; Emergency Provider Emergency Medicine; Visit Provider Surgery | DX: K91.89 Other postprocedural complications and disorders of digestive system (principal); K56.7 Ileus, unspecified | CPT/HCPCS: 99024 ==

== ENCOUNTER 2024-08-23 14:19 | Outpatient (AMB) | payer BC, SELFPAY ==
--- NOTE | 2024-08-23 14:19 | MHC.OFFVIS ---
Vital Signs 08/23/24 14:30 Height 6 ft 1 in Weight 255 lb BMI 33.6 BP 104/61 Blood Pressure Location Rt brachial Position Standing Pulse 82 Intake Visit Reasons: PSBO follow up Intake Note: Patient here s/p exploratory laparotomy, transverse colectomy, takedown splenic flexure primary, colo anastomosis, partial omentectomy. Patient c/o: scar looks red, painful to touch. Denies oozing. SX: 08-06-2024. Employment Programs Analyst Required: No Allergies No Known Allergies Allergy (Verified 08/23/24 14:25) HPI Comments Details: Patient presents with a significant other for follow-up. He is doing well. He is starting a diet. Having regular bowel habits. He is having some drainage from the inferior aspect of the incision which will be evaluated. Pathology results were initially reviewed with the patient in the hospital and will be reviewed again today. Patient , once he is convalesced , will require oncologic follow-up. [facility] Medical History Mild intermittent asthma Congenital deafness Hard of hearing Surgical History No pertinent past surgical history Family History Other Family history unknown Social History Household Members: Significant Other Housing: House Do you presently have visiting nurse or other home services: No Alcohol intake: never Patient Tobacco Use Status: Current someday Tobacco user Tobacco use type: Cigarette Cigarette Packs Per Day: 0.5 Cigarettes Per Day: 10.0 e-Cigarette/Vaping Use: Former Use Second Hand Smoke Exposure: No service: No Physical Exam Vital Signs: Last Vital Signs Pulse 82 08/23/24 14:30 BP 104/61 08/23/24 14:30 BMI result Body Mass Index 33.6 GI Other: Abdomen corpulent, soft, benign. Inferior aspect of the incision has a small stitch abscess which was uneventfully removed. Wound was irrigated, packing placed, and dressing applied. Patient tolerated procedure well. Assessment & Plan Assessment & Plan (1) Postop check: Code(s): Z09 - Encounter for follow-up examination after completed treatment for conditions other than malignant neoplasm Category: Surgical Plan: Patient was been given local instructions and arrangements were also made with Pradip kohli office nurse regarding local wound care. You were given a script of antibiotics as a precaution. All questions answered. Patient will see me as directed or p.r.n. (2) Postoperative stitch abscess: Code(s): T81.41XA - Infection following a procedure, superficial incisional surgical site, initial encounter Category: Surgical Plan: See above Medications: New cephalexin 500 mg PO TID 30 caps 0RF Coding Level of Care Code Global (38778) Diagnoses Postop check Z09 Postoperative stitch abscess T81.41XA
[2024-08-23 14:30] VITALS: BP 104/61; PULSE 82; BMI 33.6
== END 2024-08-23 15:12 | disposition home or self-care (01) ==
PROVIDERS: PCP Nurse Practitioner Family; Visit Provider Surgery
DX: Z09 Encounter for follow-up examination after completed treatment for conditions other than malignant neoplasm (principal); T81.41XA Infection following a procedure, superficial incisional surgical site, initial encounter
CPT/HCPCS: 99024

== ENCOUNTER → 2024-08-24 13:54 | Outpatient (BNVA) | payer BC, SELFPAY | PROVIDERS: PCP Nurse Practitioner Family; Visit Provider Surgery | DX: Z48.01 Encounter for change or removal of surgical wound dressing (principal) | CPT/HCPCS: 99211 ==